=== PATIENT | female | born 1980 | race Caucasian/White ===

== ENCOUNTER → 2016-06-20 | Outpatient (CLI) | payer OTHER ==
[~2016-06-20] MED LIST: ACET50TA PO; CIPR500T19; MOTR200T44 PO; PERC5TAB8; STUATAB PO; [UNRECOGNIZED DRUG - OTHER]
[2016-06-20 10:45] LABS: BASO % 0.2 % (0.0-1.0); EOS # 0.4 K/mm3 (0.0-0.50); EOS % 3.4 % (0.0-3.0); LARGE UNSTAINED CELL # 0.2 K/mm3 (0.0-0.4); LARGE UNSTAINED CELL % 1.3 % (0.0-4.0); LYMPH # 3.3 K/mm3 (1.5-4.5); LYMPH % 27.7 % (24.0-44.0); MEAN CORPUSCULAR HEMOGLOBIN 31.9 pg (27.0-33.0); MEAN CORPUSCULAR HGB CONC 34.3 g/dl (32.0-36.5); MONO # 0.6 K/mm3 (0.0-0.8); MONO % 4.9 % (0.0-5.0); NEUTROPHILS # 7.1 K/mm3 (1.8-7.7); NEUTROPHILS % 62.5 % (36.0-66.0); PLATELET COUNT, AUTOMATED 254 k/mm3 (150-450); RED CELL DISTRIBUTION WIDTH 12.6 % (11.5-14.5); WHITE BLOOD COUNT 11.4 K/mm3 (4.0-10.0)
[2016-06-20 11:04] LABS: ERYTHROCYTE SEDIMENTATION RATE 27 mm/hr (0-20)
[2016-06-20 11:14] LABS: ALBUMIN 3.7 GM/DL (3.2-5.2); ALBUMIN/GLOBULIN RATIO 1.09 (1.00-1.93); ALKALINE PHOSPHATASE 118 U/L (45-117); ALT/SGPT 45 U/L (12-78); ANION GAP 7 MEQ/L (8-16); AST/SGOT 27 U/L (15-37); BILIRUBIN,TOTAL 0.4 MG/DL (0.2-1.0); BLOOD UREA NITROGEN 17 MG/DL (7-18); CARBON DIOXIDE LEVEL 28 MEQ/L (21-32); CHLORIDE LEVEL 101 MEQ/L (98-107); CREATININE FOR GFR 0.87 MG/DL (0.55-1.02); GLOMERULAR FILTRATION RATE > 60.0 (>60); GLUCOSE, FASTING 102 MG/DL (70-105); SODIUM LEVEL 136 MEQ/L (136-145); TOTAL PROTEIN 7.1 GM/DL (6.4-8.2)
== END ==
LOC: M LAB 10:12
PROVIDERS: ATTEND Psychiatry & Neurology Neurology
DX: R51 Headache (principal)

== ENCOUNTER → 2016-11-16 | Outpatient (RCR) | payer OTHER | LOC: M PT 11-13 07:37 | PROVIDERS: ATTEND Psychiatry & Neurology Neurology | DX: Z51.89 Encounter for other specified aftercare (principal); M54.2 Cervicalgia; M79.603 Pain in arm, unspecified; Z88.0 Allergy status to penicillin; Z88.2 Allergy status to sulfonamides ==

== ENCOUNTER 2016-12-13 07:45 | Outpatient (RCR) | payer OTHER | END 2016-12-16 | LOC: M PT 07:45 | PROVIDERS: ATTEND Psychiatry & Neurology Neurology | DX: Z51.89 Encounter for other specified aftercare (principal); M54.2 Cervicalgia; M79.621 Pain in right upper arm ==

== ENCOUNTER → 2016-12-23 | Outpatient (CLI) | payer OTHER ==
[2016-12-23 10:43] LABS: BASO % 0.2 % (0.0-1.0); EOS # 0.4 10^3/uL (0.0-0.50); EOS % 3.6 % (0.0-3.0); IMMATURE GRANULOCYTE % 0.6 % (0-0); LYMPH # 3.3 10^3/uL (1.5-4.5); MEAN CORPUSCULAR HEMOGLOBIN 31.7 pg (27.0-33.0); MEAN CORPUSCULAR HGB CONC 34.1 g/dl (32.0-36.5); MEAN CORPUSCULAR VOLUME 92.9 fl (80.0-96.0); MONO # 0.7 10^3/uL (0.0-0.8); MONO % 6.2 % (0.0-5.0); NEUTROPHILS # 6.6 10^3/uL (1.8-7.7); NEUTROPHILS % 59.4 % (36.0-66.0); PLATELET COUNT, AUTOMATED 316 10^3/uL (150-450); RED CELL DISTRIBUTION WIDTH 12.4 % (11.5-14.5); WHITE BLOOD COUNT 11.1 10^3/uL (4.0-10.0)
[2016-12-23 10:50] LABS: ADD MANUAL DIFFER NO; DIFF SLIDE NUMBER 119
[2016-12-23 11:15] LABS: ALBUMIN 3.6 GM/DL (3.2-5.2); ALKALINE PHOSPHATASE 105 U/L (45-117); ALT/SGPT 44 U/L (12-78); ANION GAP 9 MEQ/L (8-16); AST/SGOT 27 U/L (15-37); BILIRUBIN,TOTAL 0.4 MG/DL (0.2-1.0); BLOOD UREA NITROGEN 17 MG/DL (7-18); CALCIUM LEVEL 8.3 MG/DL (8.5-10.1); CARBON DIOXIDE LEVEL 24 MEQ/L (21-32); CHLORIDE LEVEL 107 MEQ/L (98-107); CHOLESTEROL LEVEL 182 MG/DL (<200); CREATININE FOR GFR 0.96 MG/DL (0.55-1.02); GLOMERULAR FILTRATION RATE > 60.0 (>60); GLUCOSE, FASTING 84 MG/DL (70-105); POTASSIUM SERUM 3.9 MEQ/L (3.5-5.1); SODIUM LEVEL 140 MEQ/L (136-145); TOTAL PROTEIN 7.2 GM/DL (6.4-8.2); TRIGLYCERIDES LEVEL 118 MG/DL (<150)
== END ==
LOC: M LAB 09:48
PROVIDERS: ATTEND Nurse Practitioner Adult Health
DX: D64.9 Anemia, unspecified (principal); E55.9 Vitamin D deficiency, unspecified; Z79.899 Other long term (current) drug therapy

== ENCOUNTER → 2017-05-07 | Outpatient (CLI) | payer OTHER ==
[2017-05-07 14:05] LABS: ANION GAP 9 MEQ/L (8-16); BLOOD UREA NITROGEN 14 MG/DL (7-18); CALCIUM LEVEL 8.8 MG/DL (8.5-10.1); CARBON DIOXIDE LEVEL 24 MEQ/L (21-32); CHLORIDE LEVEL 107 MEQ/L (98-107); CREATININE FOR GFR 0.94 MG/DL (0.55-1.30); GLOMERULAR FILTRATION RATE > 60.0 (>60); GLUCOSE, FASTING 68 MG/DL (70-100); POTASSIUM SERUM 3.7 MEQ/L (3.5-5.1); SODIUM LEVEL 140 MEQ/L (136-145)
== END ==
LOC: M LAB 12:04
DX: G56.01 Carpal tunnel syndrome, right upper limb (principal)
CPT/HCPCS: 93005

== ENCOUNTER 2017-07-11 13:55 | Inpatient (IN) | payer OTHER, MEDICAID ==
[2017-07-11] MEDS: LORazepam 2 MG/ML VIAL (J2060) IV (13:01)
[2017-07-11] MEDS: NS 1,000 ML IV ×2 (13:15→17:28)
[2017-07-11 13:23] LABS: ABG pH (ARTERIAL) 7.294 UNITS (7.350-7.450); HEMATOCRIT 40.6 % (36.0-47.0); HEMOGLOBIN 13.4 g/dl (12.0-15.5); MEAN CORPUSCULAR HEMOGLOBIN 32.1 pg (27.0-33.0); MEAN CORPUSCULAR VOLUME 97.1 fl (80.0-96.0); PLATELET COUNT, AUTOMATED 293 10^3/uL (150-450); RED BLOOD COUNT 4.18 10^6/uL (4.00-5.40); RED CELL DISTRIBUTION WIDTH 12.6 % (11.5-14.5)
[2017-07-11 13:24] LABS: ABG BASE EXCESS -8.5 (-2.0-2.0); ABG HCO3 17.1 MEQ/L (22.0-26.0); ABG O2 SATURATION 88.2 % (95.0-99.0); ABG PARTIAL PRESSURE CO2 36.1 mmHg (35.0-45.0); ABG PARTIAL PRESSURE O2 59.9 mmHg (75.0-100.0); ABG STANDARD HCO3 17.5 MEQ/L (22.0-26.0); ABG TOTAL CO2 18.2 MEQ/L (22.0-29.0)
[2017-07-11] MEDS: methylPREDNISolone INJ 125 MG/2 ML VIAL (J2930) IV (13:27)
[2017-07-11 13:34] LABS: ADD MANUAL DIFFER YES; DIFF SLIDE NUMBER 258; POS COUNT POS FLAG; POSITIVE DIFF POS FLAG; POSITIVE MORPH POS FLAG; WHITE BLOOD COUNT 38.3 10^3/uL (4.0-10.0)
[2017-07-11] MEDS: ALBUTEROL SULFATE 2.5 MG/0.5 ML INH NEB SOLN INH (13:34)
[2017-07-11] MEDS: IPRATROPIUM 0.5MG/ALBUTEROL 2.5MG INH SOL UD 3ML (DUONEB)(J7620) NEB ×2 (13:34→20:15)
[~2017-07-11 13:55] MED LIST changes: -ACET50TA PO; -CIPR500T19; +LORazepam 2 MG/ML VIAL (J2060) As Ordered; -MOTR200T44 PO; +NS 1,000 ML IV; -PERC5TAB8; -STUATAB PO; -[UNRECOGNIZED DRUG - OTHER]; +diphenhydrAMINE INJ 50MG/ML VIAL (J1200) IV
[2017-07-11 14:01] LABS: INR 1.03; PROTHROMBIN TIME 13.6 SECONDS (12.4-14.5)
[2017-07-11 14:02] LABS: PARTIAL THROMBOPLASTIN TIME 26.7 SECONDS (26.8-37.9)
[2017-07-11 14:03] LABS: LACTIC ACID SEPSIS PROTOCOL 4.3 MMOL/L (0.4-2.0)
[2017-07-11 14:09] LABS: ALBUMIN/GLOBULIN RATIO 0.83 (1.00-1.93); ALT/SGPT 53 U/L (12-78); AST/SGOT 57 U/L (7-37); BILIRUBIN,DIRECT < 0.1 MG/DL (0.0-0.2); BILIRUBIN,TOTAL 0.2 MG/DL (0.2-1.0); CPK CREATINE PHOSPHOKINASE 250 U/L (26-192); FREE T4 0.91 NG/DL (0.76-1.46); LIPASE 171 U/L (73-393); TOTAL PROTEIN 6.6 GM/DL (6.4-8.2); TROPONIN I 0.51 NG/ML (< 0.10)
[2017-07-11 14:11] LABS: ANISOCYTOSIS 1+; ATYPICAL LYMPH 2 % (0-5); LYMPHOCYTES 14 % (16-52); MONOCYTES 6 % (0-8); NEUTROPHILS 78 % (35-75); PLATELET ESTIMATE NORMAL (NORMAL)
[2017-07-11 14:14] LABS: ALKALINE PHOSPHATASE 98 U/L (45-117); CK-MB VALUE MASS 4.7 NG/ML (<3.6); MB/CK RELATIVE INDEX 1.88 (< OR =4); NT-PRO BNP 725 PG/ML (<125)
[2017-07-11] MEDS ORDERED: NOREPINEPHRINE 4 MG/4 ML AMP As Ordered ×2 (14:30→14:31)
[2017-07-11] MEDS: NOREPINEPHRINE BITARTRATE 8 MG in D5W 492 ML IV (14:44)
[2017-07-11] MEDS: ONDANSETRON 4MG/2ML VIAL (J2405) IV (15:13)
[2017-07-11 15:35] LABS: ANION GAP 12 MEQ/L (8-16); BLOOD UREA NITROGEN 12 MG/DL (7-18); CALCIUM LEVEL 7.9 MG/DL (8.5-10.1); CARBON DIOXIDE LEVEL 20 MEQ/L (21-32); CHLORIDE LEVEL 111 MEQ/L (98-107); CREATININE FOR GFR 1.18 MG/DL (0.55-1.30); GLOMERULAR FILTRATION RATE 54.3 (>60); GLUCOSE, FASTING 201 MG/DL (70-100); POTASSIUM SERUM 2.7 MEQ/L (3.5-5.1); SODIUM LEVEL 143 MEQ/L (136-145)
[2017-07-11] MEDS: PANTOPRAZOLE 40MG INJ (PROTONIX) (C9113) IV (15:43)
[2017-07-11] MEDS: KCL 40MEQ in NS 1000ML 1,000 ML IV (15:45)
[2017-07-11 16:22] LABS: ABG HCO3 17.2 MEQ/L (22.0-26.0); ABG O2 SATURATION 96.1 % (95.0-99.0); ABG PARTIAL PRESSURE CO2 38.2 mmHg (35.0-45.0); ABG PARTIAL PRESSURE O2 90.2 mmHg (75.0-100.0); ABG STANDARD HCO3 17.3 MEQ/L (22.0-26.0); ABG TOTAL CO2 18.4 MEQ/L (22.0-29.0); ABG pH (ARTERIAL) 7.271 UNITS (7.350-7.450)
[2017-07-11 16:28] LABS: CPK CREATINE PHOSPHOKINASE 436 U/L (26-192)
[2017-07-11 16:30] LABS: ALBUMIN 3.2 GM/DL (3.2-5.2); ALBUMIN/GLOBULIN RATIO 0.94 (1.00-1.93); ALKALINE PHOSPHATASE 103 U/L (45-117); ALT/SGPT 57 U/L (12-78); ANION GAP 12 MEQ/L (8-16); AST/SGOT 52 U/L (7-37); BILIRUBIN,TOTAL 0.2 MG/DL (0.2-1.0); BLOOD UREA NITROGEN 13 MG/DL (7-18); CALCIUM LEVEL 8.2 MG/DL (8.5-10.1); CARBON DIOXIDE LEVEL 20 MEQ/L (21-32); CHLORIDE LEVEL 111 MEQ/L (98-107); CHOLESTEROL LEVEL 175 MG/DL (< 200); CPK CREATINE PHOSPHOKINASE 453 U/L (26-192); CREATININE FOR GFR 1.29 MG/DL (0.55-1.30); GLUCOSE, FASTING 198 MG/DL (70-100); LDH LACTATE DEHYDROGENASE 243 U/L (84-246); MAGNESIUM LEVEL 2.1 MG/DL (1.8-2.4); PHOSPHORUS LEVEL 4.1 MG/DL (2.5-4.9); SODIUM LEVEL 143 MEQ/L (136-145); TOTAL PROTEIN 6.6 GM/DL (6.4-8.2); TRIGLYCERIDES LEVEL 122 MG/DL (<150)
[2017-07-11 16:36] LABS: POTASSIUM SERUM 3.3 MEQ/L (3.5-5.1)
[2017-07-11] MEDS: ACETAMINOPHEN TAB 650MG DOSE (2X325MG) PO (19:06)
[2017-07-12] LABS: BEDSIDE GLUCOSE 139 MG/DL (70-105)
[2017-07-12] MEDS: KCL 40MEQ in NS 1000ML 1,000 ML IV (00:41)
[2017-07-12] MEDS: NOREPINEPHRINE BITARTRATE 8 MG in D5W 492 ML IV (04:20)
[2017-07-12 05:37] LABS: HEMATOCRIT 36.7 % (36.0-47.0); HEMOGLOBIN 12.1 g/dl (12.0-15.5); MEAN CORPUSCULAR HEMOGLOBIN 31.7 pg (27.0-33.0); MEAN CORPUSCULAR VOLUME 96.1 fl (80.0-96.0); PLATELET COUNT, AUTOMATED 220 10^3/uL (150-450); RED BLOOD COUNT 3.82 10^6/uL (4.00-5.40)
[2017-07-12 05:54] LABS: ABG BASE EXCESS -5.9 (-2.0-2.0); ABG HCO3 17.9 MEQ/L (22.0-26.0); ABG O2 SATURATION 99.6 % (95.0-99.0); ABG PARTIAL PRESSURE CO2 30.4 mmHg (35.0-45.0); ABG PARTIAL PRESSURE O2 218.5 mmHg (75.0-100.0); ABG STANDARD HCO3 19.7 MEQ/L (22.0-26.0); ABG TOTAL CO2 18.8 MEQ/L (22.0-29.0); ABG pH (ARTERIAL) 7.388 UNITS (7.350-7.450)
[2017-07-12 06:10] LABS: ALBUMIN 2.7 GM/DL (3.2-5.2); ANION GAP 7 MEQ/L (8-16); BLOOD UREA NITROGEN 15 MG/DL (7-18); CALCIUM LEVEL 7.9 MG/DL (8.5-10.1); CARBON DIOXIDE LEVEL 22 MEQ/L (21-32); CHLORIDE LEVEL 114 MEQ/L (98-107); GLOMERULAR FILTRATION RATE > 60.0 (>60); GLUCOSE, FASTING 104 MG/DL (70-100); PHOSPHORUS LEVEL 3.2 MG/DL (2.5-4.9); POTASSIUM SERUM 4.5 MEQ/L (3.5-5.1); SODIUM LEVEL 143 MEQ/L (136-145)
[2017-07-12 06:13] LABS: POS COUNT POS FLAG
[2017-07-12 06:14] LABS: WHITE BLOOD COUNT 30.2 10^3/uL (4.0-10.0)
[2017-07-12] MEDS: ACETAMINOPHEN TAB 650MG DOSE (2X325MG) PO ×2 (07:43→16:08)
[2017-07-12] MEDS: PANTOPRAZOLE 40MG INJ (PROTONIX) (C9113) IV (07:43)
[2017-07-12] MEDS: MAALOX 30 ML SUSP *UDC PO (07:54)
[2017-07-12] MEDS: FUROSEMIDE 20 MG/2 ML VIAL (J1940) IV (07:55)
[2017-07-12] MEDS: IPRATROPIUM 0.5MG/ALBUTEROL 2.5MG INH SOL UD 3ML (DUONEB)(J7620) NEB ×4 (08:27→19:28)
[2017-07-12 09:11] LABS: LACTIC ACID SEPSIS PROTOCOL 1.5 MMOL/L (0.4-2.0)
[2017-07-12 09:16] LABS: CPK CREATINE PHOSPHOKINASE 578 U/L (26-192)
[2017-07-12] MEDS: TOPIRAMATE (TopAMAX) 100 MG TAB PO ×2 (11:21→21:02)
[2017-07-12] MEDS: VENLAFAXINE **XR** 75MG CAPSULE PO ×2 (11:21→21:02)
[2017-07-12] MEDS: GABAPENTIN 100 MG CAP PO ×3 (11:21→21:02)
[2017-07-12 17:51] LABS: BEDSIDE GLUCOSE 105 MG/DL (70-105)
[2017-07-13 00:33] LABS: BEDSIDE GLUCOSE 115 MG/DL (70-105)
[2017-07-13 05:56] LABS: HEMATOCRIT 35.9 % (36.0-47.0); HEMOGLOBIN 11.9 g/dl (12.0-15.5); MEAN CORPUSCULAR HEMOGLOBIN 31.6 pg (27.0-33.0); MEAN CORPUSCULAR HGB CONC 33.1 g/dl (32.0-36.5); MEAN CORPUSCULAR VOLUME 95.2 fl (80.0-96.0); PLATELET COUNT, AUTOMATED 212 10^3/uL (150-450); RED BLOOD COUNT 3.77 10^6/uL (4.00-5.40); WHITE BLOOD COUNT 17.7 10^3/uL (4.0-10.0)
[2017-07-13 06:16] LABS: ALBUMIN 2.8 GM/DL (3.2-5.2); ANION GAP 6 MEQ/L (8-16); BLOOD UREA NITROGEN 15 MG/DL (7-18); CALCIUM LEVEL 8.1 MG/DL (8.5-10.1); CARBON DIOXIDE LEVEL 25 MEQ/L (21-32); CHLORIDE LEVEL 112 MEQ/L (98-107); CREATININE FOR GFR 0.85 MG/DL (0.55-1.30); GLOMERULAR FILTRATION RATE > 60.0 (>60); GLUCOSE, FASTING 86 MG/DL (70-100); SODIUM LEVEL 143 MEQ/L (136-145)
[2017-07-13 06:29] LABS: PHOSPHORUS LEVEL 1.6 MG/DL (2.5-4.9)
[2017-07-13] MEDS: VENLAFAXINE **XR** 75MG CAPSULE PO ×2 (08:27→21:15)
[2017-07-13] MEDS: TOPIRAMATE (TopAMAX) 100 MG TAB PO ×2 (08:27→21:15)
[2017-07-13] MEDS: PANTOPRAZOLE 40MG INJ (PROTONIX) (C9113) IV (08:27)
[2017-07-13] MEDS: GABAPENTIN 100 MG CAP PO ×3 (08:27→21:15)
[2017-07-13] MEDS: IPRATROPIUM 0.5MG/ALBUTEROL 2.5MG INH SOL UD 3ML (DUONEB)(J7620) NEB (08:30)
[2017-07-13] MEDS: ACETAMINOPHEN TAB 650MG DOSE (2X325MG) PO (21:16)
[2017-07-14 06:02] LABS: HEMATOCRIT 35.2 % (36.0-47.0); HEMOGLOBIN 11.5 g/dl (12.0-15.5); MEAN CORPUSCULAR HEMOGLOBIN 31.3 pg (27.0-33.0); MEAN CORPUSCULAR HGB CONC 32.7 g/dl (32.0-36.5); MEAN CORPUSCULAR VOLUME 95.7 fl (80.0-96.0); PLATELET COUNT, AUTOMATED 195 10^3/uL (150-450); RED BLOOD COUNT 3.68 10^6/uL (4.00-5.40); RED CELL DISTRIBUTION WIDTH 12.8 % (11.5-14.5); WHITE BLOOD COUNT 12.7 10^3/uL (4.0-10.0)
[2017-07-14 06:30] LABS: ALBUMIN 2.7 GM/DL (3.2-5.2); ANION GAP 8 MEQ/L (8-16); BLOOD UREA NITROGEN 15 MG/DL (7-18); CALCIUM LEVEL 8.4 MG/DL (8.5-10.1); CARBON DIOXIDE LEVEL 21 MEQ/L (21-32); CHLORIDE LEVEL 115 MEQ/L (98-107); CREATININE FOR GFR 0.79 MG/DL (0.55-1.30); GLOMERULAR FILTRATION RATE > 60.0 (>60); GLUCOSE, FASTING 98 MG/DL (70-100); MAGNESIUM LEVEL 2.2 MG/DL (1.8-2.4); PHOSPHORUS LEVEL 3.3 MG/DL (2.5-4.9); POTASSIUM SERUM 3.9 MEQ/L (3.5-5.1); SODIUM LEVEL 144 MEQ/L (136-145)
[2017-07-14] MEDS: VENLAFAXINE **XR** 75MG CAPSULE PO (08:54)
[2017-07-14] MEDS: GABAPENTIN 100 MG CAP PO (08:54)
[2017-07-14] MEDS: TOPIRAMATE (TopAMAX) 100 MG TAB PO (08:54)
== END 2017-07-14 10:21 | disposition home or self-care (01) | DRG 812 ==
LOC: M MSPAV 07-13 13:19 → M ED 13:55 → M ED INP 14:07 → M ICU 16:51
PROVIDERS: Internal Medicine Pulmonary Disease
PROC: 02HV33Z Insertion of Infusion Device into Superior Vena Cava, Percutaneous Approach (ICD-10-PCS; principal; 2017-07-11)
DX: T44.5X1A Poisoning by predominantly beta-adrenoreceptor agonists, accidental (unintentional), initial encounter (principal); E87.2 Acidosis; J70.8 Respiratory conditions due to other specified external agents; I95.9 Hypotension, unspecified; J96.01 Acute respiratory failure with hypoxia; R73.9 Hyperglycemia, unspecified; R57.8 Other shock; E66.9 Obesity, unspecified; I10 Essential (primary) hypertension; Z88.0 Allergy status to penicillin; Z88.2 Allergy status to sulfonamides; Z79.899 Other long term (current) drug therapy

== ENCOUNTER → 2017-10-19 | Outpatient (CLI) | payer OTHER ==
[2017-10-19 16:55] LABS: ERYTHROCYTE SEDIMENTATION RATE 37 mm/hr (0-20)
[2017-10-19 17:20] LABS: RHEUMATOID FACTOR QUANT < 10.0 IU/ML (<15.0); TOTAL PROTEIN 7.6 GM/DL (6.4-8.2)
[2017-10-19 17:39] LABS: VITAMIN B12 LEVEL 341 PG/ML (247-911)
[2017-10-22 11:13] LABS: FOLATE 20.2 NG/ML (>5.4)
[2017-10-22 14:12] LABS: ANTINUCLEAR ANTIBODIES DIRECT Negative (Negative)
[2017-10-23 00:06] LABS: VITAMIN E(ALPHA TOCOPHEROL) 11.2 mg/L (5.9-19.4); VITAMIN E(GAMMA TOCOPHEROL) 2.7 mg/L (0.7-4.9)
== END ==
LOC: M LAB 15:37
DX: R51 Headache (principal); R41.3 Other amnesia
CPT/HCPCS: 82746

== ENCOUNTER → 2017-11-05 | Outpatient (CLI) | payer OTHER ==
[2017-11-05 10:05] LABS: BASO % 0.1 % (0.0-1.0); EOS # 0.5 10^3/uL (0.0-0.50); EOS % 3.3 % (0.0-3.0); HEMATOCRIT 37.6 % (36.0-47.0); IMMATURE GRANULOCYTE % 1.1 % (0-3.0); LYMPH # 3.9 10^3/uL (1.5-4.5); LYMPH % 26.9 % (24.0-44.0); MEAN CORPUSCULAR HEMOGLOBIN 31.8 pg (27.0-33.0); MEAN CORPUSCULAR HGB CONC 34.6 g/dl (32.0-36.5); MEAN CORPUSCULAR VOLUME 91.9 fl (80.0-96.0); MONO # 1.1 10^3/uL (0.0-0.8); MONO % 7.4 % (0.0-5.0); NEUTROPHILS # 8.8 10^3/uL (1.8-7.7); NEUTROPHILS % 61.2 % (36.0-66.0); PLATELET COUNT, AUTOMATED 303 10^3/uL (150-450); RED BLOOD COUNT 4.09 10^6/uL (4.00-5.40); RED CELL DISTRIBUTION WIDTH 12.6 % (11.5-14.5); WHITE BLOOD COUNT 14.4 10^3/uL (4.0-10.0)
[2017-11-05 10:16] LABS: INR 0.99; PROTHROMBIN TIME 13.2 SECONDS (12.1-14.4)
[2017-11-05 10:40] LABS: ALBUMIN 3.4 GM/DL (3.2-5.2); ALBUMIN/GLOBULIN RATIO 0.85 (1.00-1.93); ALKALINE PHOSPHATASE 102 U/L (45-117); ALT/SGPT 47 U/L (12-78); ANION GAP 10 MEQ/L (8-16); AST/SGOT 28 U/L (7-37); BILIRUBIN,TOTAL 0.2 MG/DL (0.2-1.0); BLOOD UREA NITROGEN 20 MG/DL (7-18); CALCIUM LEVEL 8.5 MG/DL (8.5-10.1); CARBON DIOXIDE LEVEL 24 MEQ/L (21-32); CHLORIDE LEVEL 107 MEQ/L (98-107); CHOLESTEROL LEVEL 156 MG/DL (<200); CHOLESTEROL RISK RATIO 3.183 (<5); CREATININE FOR GFR 1.12 MG/DL (0.55-1.30); GLOMERULAR FILTRATION RATE 57.7 (>60); GLUCOSE, FASTING 107 MG/DL (70-100); HDL CHOLESTEROL 49 MG/DL (>40); LDL CHOLESTEROL 76.2 MG/DL (<100); NON-HDL-C 107 MG/DL; POTASSIUM SERUM 3.8 MEQ/L (3.5-5.1); SODIUM LEVEL 141 MEQ/L (136-145); TOTAL PROTEIN 7.4 GM/DL (6.4-8.2); TRIGLYCERIDES LEVEL 154 MG/DL (<150)
[2017-11-05 10:55] LABS: TOTAL 25(OH) VITAMIN D 22.9 NG/ML (30.0-100.0)
== END ==
LOC: M LAB 09:35
DX: I10 Essential (primary) hypertension (principal)
CPT/HCPCS: 93005

== ENCOUNTER 2017-12-19 19:13 | Emergency (ER) | payer OTHER, MEDICAID ==
[2017-12-19 19:40] LABS: HEMATOCRIT 41.1 % (36.0-47.0); MEAN CORPUSCULAR HEMOGLOBIN 32.1 pg (27.0-33.0); MEAN CORPUSCULAR HGB CONC 34.1 g/dl (32.0-36.5); MEAN CORPUSCULAR VOLUME 94.3 fl (80.0-96.0); PLATELET COUNT, AUTOMATED 317 10^3/uL (150-450); RED BLOOD COUNT 4.36 10^6/uL (4.00-5.40); RED CELL DISTRIBUTION WIDTH 12.6 % (11.5-14.5)
[2017-12-19 19:45] LABS: POSITIVE DIFF POS FLAG; WHITE BLOOD COUNT 16.1 10^3/uL (4.0-10.0)
[2017-12-19 19:46] LABS: ADD MANUAL DIFFER YES; DIFF SLIDE NUMBER 382
[2017-12-19 20:07] LABS: ALBUMIN 3.7 GM/DL (3.2-5.2); ALBUMIN/GLOBULIN RATIO 0.95 (1.00-1.93); ALKALINE PHOSPHATASE 97 U/L (45-117); ALT/SGPT 53 U/L (12-78); ANION GAP 11 MEQ/L (8-16); AST/SGOT 30 U/L (7-37); BILIRUBIN,DIRECT < 0.1 MG/DL (0.0-0.2); BILIRUBIN,TOTAL 0.2 MG/DL (0.2-1.0); BLOOD UREA NITROGEN 16 MG/DL (7-18); CARBON DIOXIDE LEVEL 23 MEQ/L (21-32); CHLORIDE LEVEL 107 MEQ/L (98-107); CPK CREATINE PHOSPHOKINASE 201 U/L (26-192); CREATININE FOR GFR 1.03 MG/DL (0.55-1.30); GLOMERULAR FILTRATION RATE > 60.0 (>60); GLUCOSE, FASTING 116 MG/DL (70-100); LIPASE 187 U/L (73-393); MB/CK RELATIVE INDEX 1.34 (< OR =4); POTASSIUM SERUM 3.7 MEQ/L (3.5-5.1); SODIUM LEVEL 141 MEQ/L (136-145); TOTAL PROTEIN 7.6 GM/DL (6.4-8.2); TROPONIN I < 0.02 NG/ML (< 0.10)
[2017-12-19 20:12] LABS: INR 0.92; PARTIAL THROMBOPLASTIN TIME 27.8 SECONDS (25.4-37.6); PROTHROMBIN TIME 12.4 SECONDS (12.1-14.4)
[2017-12-19 20:15] LABS: ATYPICAL LYMPH 8 % (0-5); EOSINOPHILS 4 % (0-5); LYMPHOCYTES 25 % (16-52); MONOCYTES 5 % (0-8); NEUTROPHILS 58 % (35-75); PLATELET ESTIMATE NORMAL (NORMAL)
[2017-12-19] MEDS ORDERED: ISOVUE-370 76% 100ML VIAL (Q9967) As Ordered (20:55)
[2017-12-20 02:17] LABS: CPK CREATINE PHOSPHOKINASE 164 U/L (26-192); MB/CK RELATIVE INDEX 1.34 (< OR =4); TROPONIN I < 0.02 NG/ML (< 0.10)
== END 2017-12-20 02:51 | disposition home or self-care (01) ==
LOC: M ED 12-20 02:51
DX: R07.9 Chest pain, unspecified (principal); I10 Essential (primary) hypertension; J45.909 Unspecified asthma, uncomplicated; F33.9 Major depressive disorder, recurrent, unspecified; M51.9 Unspecified thoracic, thoracolumbar and lumbosacral intervertebral disc disorder; E66.9 Obesity, unspecified; Z79.899 Other long term (current) drug therapy; Z88.0 Allergy status to penicillin; F17.210 Nicotine dependence, cigarettes, uncomplicated
CPT/HCPCS: Q9967

== ENCOUNTER 2017-12-21 21:14 | Inpatient (IN) | payer MEDICAID, OTHER ==
[2017-12-21 22:01] LABS: HEMATOCRIT 35.8 % (36.0-47.0); HEMOGLOBIN 12.1 g/dl (12.0-15.5); MEAN CORPUSCULAR HEMOGLOBIN 31.8 pg (27.0-33.0); MEAN CORPUSCULAR HGB CONC 33.8 g/dl (32.0-36.5); PLATELET COUNT, AUTOMATED 270 10^3/uL (150-450); RED BLOOD COUNT 3.81 10^6/uL (4.00-5.40); RED CELL DISTRIBUTION WIDTH 12.5 % (11.5-14.5); WHITE BLOOD COUNT 13.3 10^3/uL (4.0-10.0)
[2017-12-21 22:19] LABS: AMPHETAMINES LEVEL URINE NEGATIVE (NEGATIVE); BARBITURATES URINE NEGATIVE (NEGATIVE); BENZODIAZEPINES URINE NEGATIVE (NEGATIVE); CANNABINOIDS URINE NEGATIVE (NEGATIVE); COCAINE METABOLITE URINE NEGATIVE (NEGATIVE); METHADONE URINE NEGATIVE (NEGATIVE); OPIATES URINE NEGATIVE (NEGATIVE); PHENCYCLIDINE URINE NEGATIVE (NEGATIVE)
[2017-12-21 22:51] LABS: ACETAMINOPHEN LEVEL < 2.0 UG/ML (10.0-30.0); ALBUMIN 3.3 GM/DL (3.2-5.2); ALBUMIN/GLOBULIN RATIO 1.03 (1.00-1.93); ALKALINE PHOSPHATASE 83 U/L (45-117); ALT/SGPT 43 U/L (12-78); ANION GAP 8 MEQ/L (8-16); AST/SGOT 22 U/L (7-37); BILIRUBIN,DIRECT < 0.1 MG/DL (0.0-0.2); BILIRUBIN,TOTAL 0.1 MG/DL (0.2-1.0); BLOOD UREA NITROGEN 20 MG/DL (7-18); CALCIUM LEVEL 8.2 MG/DL (8.5-10.1); CARBON DIOXIDE LEVEL 24 MEQ/L (21-32); CHLORIDE LEVEL 113 MEQ/L (98-107); CREATININE FOR GFR 0.93 MG/DL (0.55-1.30); ETHYL ALCOHOL (ETHANOL) < 0.003 % (0.000-0.010); GLOMERULAR FILTRATION RATE > 60.0 (>60); GLUCOSE, FASTING 138 MG/DL (70-100); POTASSIUM SERUM 3.6 MEQ/L (3.5-5.1); SALICYLATE LEVEL 1.9 MG/DL (5.0-30.0); SODIUM LEVEL 145 MEQ/L (136-145); TOTAL PROTEIN 6.5 GM/DL (6.4-8.2)
[2017-12-22] MEDS ORDERED: ALBUTEROL 90 MCG/ACT 8GM HFA INHALER INH (01:30)
[2017-12-22] MEDS ORDERED: MOM 30ML SUSPENSION UDC PO (01:30)
[2017-12-22] MEDS ORDERED: MAALOX 30 ML SUSP *UDC PO (01:30)
[2017-12-22] MEDS ORDERED: ACETAMINOPHEN TAB 650MG DOSE (2X325MG) PO (01:30)
[2017-12-22] MEDS: LISINOPRIL 20 MG TAB PO ×2 (09:00→20:54)
[2017-12-22] MEDS: hydroCHLOROthiazide 12.5 MG CAPSULE PO ×2 (09:00→20:54)
[2017-12-22] MEDS: VENLAFAXINE **XR** 75MG CAPSULE PO (09:00)
[2017-12-22] MEDS: TOPIRAMATE (TopAMAX) 100 MG TAB PO (09:00)
[2017-12-22] MEDS: VITAMIN D 1,000 INTERNATIONAL UNITS TABLET PO (09:00)
[2017-12-22] MEDS: BACLOFEN 10 MG TAB PO ×2 (09:09→20:55)
[2017-12-22] MEDS: GABAPENTIN 400 MG CAP PO ×2 (16:11→20:54)
[2017-12-22] MEDS: FLUoxetine 10 MG CAP PO (17:47)
[2017-12-22] MEDS: MIRTAZAPINE 15 MG TAB PO (20:54)
[2017-12-22] MEDS: traZODone 50 MG TAB PO (20:54)
[2017-12-22] MEDS ORDERED: VENLAFAXINE **XR** 75MG CAPSULE PO (21:00)
[2017-12-23] MEDS: INFLUENZA QUADRIVALENT PF VACCINE 0.5ML SYRINGE (90686) IM (08:42)
[2017-12-23] MEDS: TOPIRAMATE (TopAMAX) 100 MG TAB PO (08:45)
[2017-12-23] MEDS: BACLOFEN 10 MG TAB PO ×2 (08:45→20:54)
[2017-12-23] MEDS: FLUoxetine 10 MG CAP PO (08:45)
[2017-12-23] MEDS: VITAMIN D 1,000 INTERNATIONAL UNITS TABLET PO (08:45)
[2017-12-23] MEDS: GABAPENTIN 400 MG CAP PO ×3 (08:45→20:54)
[2017-12-23] MEDS: traZODone 50 MG TAB PO (20:54)
[2017-12-23] MEDS: hydroCHLOROthiazide 12.5 MG CAPSULE PO (20:54)
[2017-12-23] MEDS: MIRTAZAPINE 15 MG TAB PO (20:54)
[2017-12-23] MEDS: LISINOPRIL 20 MG TAB PO (20:56)
[2017-12-24 07:46] LABS: BASO % 0.2 % (0.0-1.0); EOS # 0.6 10^3/uL (0.0-0.50); HEMATOCRIT 39.3 % (36.0-47.0); HEMOGLOBIN 13.3 g/dl (12.0-15.5); LYMPH # 3.7 10^3/uL (1.5-4.5); MEAN CORPUSCULAR HGB CONC 33.8 g/dl (32.0-36.5); MEAN CORPUSCULAR VOLUME 94.5 fl (80.0-96.0); MONO # 0.8 10^3/uL (0.0-0.8); MONO % 6.4 % (0.0-5.0); NEUTROPHILS % 57.4 % (36.0-66.0); PLATELET COUNT, AUTOMATED 279 10^3/uL (150-450); RED BLOOD COUNT 4.16 10^6/uL (4.00-5.40); RED CELL DISTRIBUTION WIDTH 12.7 % (11.5-14.5); WHITE BLOOD COUNT 12.3 10^3/uL (4.0-10.0)
[2017-12-24 08:15] LABS: FREE THYROXINE INDEX 1.9 % (1.3-4.8); T UPTAKE 31 % (30-39); THYROXINE (T4) 6.1 UG/DL (4.5-12.0)
[2017-12-24] MEDS: TOPIRAMATE (TopAMAX) 100 MG TAB PO (08:54)
[2017-12-24] MEDS: VITAMIN D 1,000 INTERNATIONAL UNITS TABLET PO (08:55)
[2017-12-24] MEDS: BACLOFEN 10 MG TAB PO (08:56)
[2017-12-24] MEDS: FLUoxetine 20 MG CAP PO (08:56)
[2017-12-24] MEDS: GABAPENTIN 400 MG CAP PO (08:56)
[2017-12-24] MEDS ORDERED: TOPIRAMATE (TopAMAX) 100 MG TAB PO (21:00)
== END 2017-12-24 14:05 | disposition home or self-care (01) | DRG 751 ==
LOC: M ED INP 12-22 01:22 → M PSY 12-22 02:31 → M ED 21:14
DX: F33.9 Major depressive disorder, recurrent, unspecified (principal); I10 Essential (primary) hypertension; F41.1 Generalized anxiety disorder; F43.10 Post-traumatic stress disorder, unspecified; Z79.899 Other long term (current) drug therapy; Z88.0 Allergy status to penicillin; Z88.2 Allergy status to sulfonamides; F17.210 Nicotine dependence, cigarettes, uncomplicated; J45.909 Unspecified asthma, uncomplicated; G43.909 Migraine, unspecified, not intractable, without status migrainosus; Z90.49 Acquired absence of other specified parts of digestive tract; R94.6 Abnormal results of thyroid function studies; D72.829 Elevated white blood cell count, unspecified

== ENCOUNTER → 2017-12-21 | Outpatient (REF) | LOC: M SMT 08:32 | DX: Z00.00 Encounter for general adult medical examination without abnormal findings (principal) ==

== ENCOUNTER → 2018-01-08 | Outpatient (CLI) | payer OTHER | LOC: M CARPUL 09:02 | DX: R60.9 Edema, unspecified (principal) | CPT/HCPCS: 93306 ==

== ENCOUNTER → 2018-01-25 | Outpatient (CLI) | payer OTHER | LOC: M WUC 12:21 | DX: M25.721 Osteophyte, right elbow (principal); M25.521 Pain in right elbow | CPT/HCPCS: 73080 ==

== ENCOUNTER → 2018-02-06 | Outpatient (CLI) | payer OTHER | LOC: M PAIN 08:30 | DX: M54.5 Low back pain (principal); M54.2 Cervicalgia; G56.01 Carpal tunnel syndrome, right upper limb; M79.601 Pain in right arm; M19.90 Unspecified osteoarthritis, unspecified site; I10 Essential (primary) hypertension; J45.909 Unspecified asthma, uncomplicated; F43.10 Post-traumatic stress disorder, unspecified; F17.210 Nicotine dependence, cigarettes, uncomplicated; R06.83 Snoring; E66.01 Morbid (severe) obesity due to excess calories; Z68.41 Body mass index [BMI] 40.0-44.9, adult; Z79.899 Other long term (current) drug therapy; Z88.1 Allergy status to other antibiotic agents; Z88.2 Allergy status to sulfonamides | CPT/HCPCS: G0463 ==

== ENCOUNTER 2018-02-11 09:35 | Outpatient (RCR) | payer OTHER | END 2018-02-15 | LOC: M PT 09:35 | DX: M54.2 Cervicalgia (principal); M54.5 Low back pain | CPT/HCPCS: 97010 ==

== ENCOUNTER 2018-03-06 09:59 | Outpatient (RCR) | payer OTHER ==
[~2018-03-06 09:59] MED LIST changes: +BACL10TA8 PO; +BACL1TAB9 PO; +CIPR500T19; +FLUO20CA19 PO; +GABA-843 PO; +GABA-845 PO; +HYDR-3713 PO; +LISI20TA PO; -LORazepam 2 MG/ML VIAL (J2060) As Ordered; +MAPA500T17 PO; +MIRT45TA4 PO; +MOTR200T44 PO; -NS 1,000 ML IV; +PERC5TAB8; +STUATAB PO; +TOPI200T7 PO; +TRAZO50TA PO; +VENL150C43 PO; +VENTAER INH; +VITA-112 PO; +[UNRECOGNIZED DRUG - OTHER]; -diphenhydrAMINE INJ 50MG/ML VIAL (J1200) IV
== END 2018-03-18 ==
LOC: M PT 09:59
PROVIDERS: ATTEND Anesthesiology
DX: M54.2 Cervicalgia (principal); R42 Dizziness and giddiness

== ENCOUNTER → 2018-03-07 | Outpatient (CLI) | payer OTHER ==
[~2018-03-07] MED LIST changes: +BUPIVACAINE HCL 0.25% 10 ML VIAL As Ordered ONE; +BUPIVACAINE HCL 0.25% 30 ML VIAL As Ordered ONE; -MAPA500T17 PO; +MAPA500T2 PO; +TRIAMCINOLONE ACETONIDE SUSP 40 MG/ML VIAL (J3301) As Ordered ONE; +diazePAM 5 MG TAB As Ordered ONE; +oxyCODONE 5MG TAB As Ordered ONE
--- NOTE | 2018-03-25 | ECWPNPC ---
PATIENT NAME: JUANITA GUARDADO : 1980 GENDER: FEMALE VISIT DATE: 03/07/2018 DISCHARGE DATE: 03/07/18 1103 VISIT LOCKED DATE TIME: PHYSICIAN: LEW MAYORGA MD RESOURCE: LEW MAYORGA MD REASON FOR APPOINTMENT 1. TPI HISTORY OF PRESENT ILLNESS HISTORY OF PRESENT ILLNESS: PAIN THE PATIENT DESCRIBES THE PAIN... FALL RISK SCREENING: SCREENING :NO FALLS IN THE PAST YEAR CURRENT MEDICATIONS TAKING IBUPROFEN 800 MG TABLET 1 TABLET WITH FOOD OR MILK NEEDED ORALLY THREE TIMES A DAY MDD3, NOTES: 03/07 600 TAKING TRAZODONE HCL 100 MG TABLET 1 TABLET AT BEDTIME ORALLY ONCE A DAY, NOTES: 03/06 2100 TAKING TOPAMAX 200 MG TABLET 1 TABLET ORALLY DAILY, NOTES: 03/06 2100 TAKING GABAPENTIN 600 MG TABLET 1 TABLET ORALLY THREE TIMES DAILY, NOTES: 03/07 600 TAKING DULOXETINE HCL 30 MG CAPSULE DELAYED RELEASE PARTICLES 1 CAPSULE ORALLY BID, NOTES: 03/07 600 TAKING TIZANIDINE HCL 4 MG TABLET 1 TABLET NEEDED ORALLY BID, NOTES: 03/07 600 TAKING LISINOPRIL-HYDROCHLOROTHIAZIDE 20-12.5 MG TABLET 2 TABLETS ORALLY ONCE A DAY, NOTES: 03/07 600 TAKING MIRENA IUD , NOTES: 2015 NOT-TAKING VOLTAREN 1 % GEL 1 STRIP TRANSDERMAL 3 TIMES DAILY NEEDED FOR PAIN, NOTES: INSURANCE WOULDN'T COVER NOT-TAKING VITAMIN D-3 1000 UNIT CAPSULE 2 CAPSULE ORALLY ONCE A DAY, NOTES: RAN OUT DISCONTINUED FLUOXETINE HCL 20 MG CAPSULE 1 CAPSULE ORALLY ONCE A DAY DISCONTINUED BACLOFEN 10 MG TABLET 1 TABLET WITH FOOD OR MILK ORALLY THREE TIMES A DAY MEDICATION LIST REVIEWED AND RECONCILED WITH THE PATIENT PAST MEDICAL HISTORY SYNCOPE HTN ASTHSMA WHOLE BODY ARTHRITIS PTSD NECK AND BACK PAIN CARPAL TUNNEL RIGHT CHRONIC PAIN DEPRESSION AND ANXIETY MIGRAINES ALLERGIES AMOXICILLIN: RASH: ALLERGY SULFA (FOR ALLERGY USE ONLY): RASH: ALLERGY SURGICAL HISTORY GALL BLADDER REMOVAL 03/2008 BICEP REPAIR LEFT 02/28 CARPAL TUNNEL RIGHT WRIST 10/2017 FAMILY HISTORY FATHER: ALIVE 56 YRS, DIAGNOSED WITH HYPERTENSION MOTHER: ALIVE 57 YRS, DIAGNOSED WITH OTHER 1 BROTHER(S) , 2 SISTER(S) - HEALTHY. 1 SON(S) , 1 DAUGHTER(S) . MOM-DEPRESSION, BACK PROBLEMSDAUGHTER HAS CELIAC AND , ENVIRONMENTAL [id number]/21/18ON HAS ASTHMA, ENVIRONMENTAL ALLERGIES 02/06/18. SOCIAL HISTORY GENERAL: TOBACCO USE ARE YOU A:CURRENT SMOKER ARE YOU INTERESTED IN QUITTING?THINKING ABOUT QUITTING HAS CUT DOWN AND CAN GO WEEKS WITHOUT A CIGARETTE PREVIOUS QUIT ATTEMPTS?YES, MORE THAN 6 MONTHS AGO. COUNSELED THE PATIENT ON SMOKING CESSATION, EDUCATION [id number]/20/2018 HOW MANY CIGARETTES A DAY DO YOU SMOKE?5 OR LESS HOW SOON AFTER YOU WAKE UP DO YOU SMOKE YOUR FIRST CIGARETTE?AFTER 60 MIN HOW OFTEN DO YOU SMOKE CIGARETTES?SOME DAYS, BUT NOT EVERY DAY PATIENT COUNSELED ON THE DANGERS OF TOBACCO USE AND URGED TO QUIT:03/07/2018 ALCOHOL SCREENING DID YOU HAVE A DRINK CONTAINING ALCOHOL IN THE PAST YEAR?YES HOW OFTEN DID YOU HAVE A DRINK CONTAINING ALCOHOL IN THE PAST YEAR?MONTHLY OR LESS (1 POINT) HOW MANY DRINKS DID YOU HAVE ON A TYPICAL DAY WHEN YOU WERE DRINKING IN THE PAST YEAR?1 OR 2 (0 POINTS) HOW OFTEN DID YOU HAVE SIX OR MORE DRINKS ON ONE OCCASION IN THE PAST YEAR?NEVER (0 POINTS) POINTS1 INTERPRETATIONNEGATIVE RECREATIONAL DRUG USE DRUG USE?NO CAFFEINE CAFFEINE USE?YES OCCASIONALLY MORMON [id number] NONE LANGUAGE LANGUAGES SPOKEN:ARMENIAN EDUCATION LEVEL OF EDUCATION:NOT FINISHED COLLEGE LEARNING BARRIERS / SPECIAL NEEDS BARRIERS TO LEARNING?NO HEARING IMPAIRED?NO VISION IMPAIRED?YES :CORRECTIVE LENSES COGNITIVELY IMPAIRED?NO READINESS TO LEARN?YES LEARNING PREFERENCES?YES :DEMONSTRATION/VERBAL INSTRUCTION LEARNING CAPABILITIES PRESENT?YES EMOTIONAL BARRIERS?YES COMMENTS DEPRESSION AND ANXIETY SPECIAL DEVICES?NO CREDIT ADJUSTER NEEDED?NO DOMESTIC VIOLENCE DO YOU FEEL SAFE IN YOUR ENVIRONMENT?YES DIET: UNEMPLOYED. EXERCISE: NONE. MARITAL STATUS: .. OTHERS AT HOME: OTHER NON-RELATIVE, CHILDREN. NEW PATIENT PAIN DIARY FROM 0-10, WHAT LEVEL IS YOUR PAIN TODAY?9 PAIN CLINIC PFS, CLERGY, PUBLIC HEALTH REFERRALS PFS REFERRAL NEEDED?NO CLERGY REFERRAL NEEDED?NO PUBLIC HEALTH REFERRAL NEEDED?NO WAS THE PROVIDER NOTIFIED OF ANY PERTINENT INFO? N/A HAS THE PATIENT BEEN EDUCATED REGARDING HIS/HER PLAN OF CARE?YES HAS THE PATIENT BEEN EDUCATED REGARDING PAIN, THE RISK FOR PAIN, THE IMPORTANCE OF EFFECTIVE PAIN MANAGEMENT, AND THE PAIN ASSESSMENT PROCESS?YES HOUSING: RENTS APARTMENT. ADVANCE DIRECTIVE ADVANCE DIRECTIVE DISCUSSED WITH PATIENT:YES 03/07/18 PT DOES NOT HAVE ANY ADVANCED DIRECTIVES AND SHE ALREADY HAS INFORMATION ON HCP. HELP OFFERED IN COMPLETING FORM IF NEEDED. AD 03/07/18 REVIEWED WITH PT. AD. HOSPITALIZATION/MAJOR DIAGNOSTIC PROCEDURE SURGERY RELATED CHILDBIRTH 2001,2015 COMPLICATIONS WHEN HERE TO HAVE CARPAL TUNNEL--DID NOT HAVE SURGERY 07/11/2017 REVIEW OF SYSTEMS REVIEWED BY: PROVIDER: . CONSTITUTIONAL: ANY CHANGE IN YOUR MEDICAL CONDITION? NO . CHILLS NO . FEVER NO . INFECTION: DO YOU HAVE NEW INFECTIONS? NO . DO YOU HAVE HISTORY OF MRSA? NO . MUSCULOSKELETAL: ANY NEW PATTERNS OF PAIN OR NUMBNESS? NO . GASTROENTEROLOGY: ANY NEW CHANGE IN BOWEL CONTROL? NO . GENITOURINARY: ANY NEW CHANGE IN BLADDER CONTROL? NO . IS THERE A CHANCE YOU COULD BE ? NO . HEMATOLOGY/LYMPH: DO YOU TAKE ANY BLOOD THINNERS? (FOR EXAMPLE- COUMADIN, PLAVIX, AGGRENOX, PLATEL, PRADAXA, OR XARELTO) NO . WHEN WAS YOUR LAST DOSE? DATE: TIME: . NEUROLOGY: HAVE YOU FALLEN IN THE PAST 6 MONTHS? NO . ANY NEW EXTREMITY NUMBNESS OR WEAKNESS? NO . CARDIOLOGY: DO YOU HAVE A PACEMAKER OR DEFIBRILLATOR? NO . RESPIRATORY: HAVE YOU BEEN SICK IN THE PAST WEEK? NO . FEVER NO . FLU LIKE SYMPTOMS? NO . COUGH NO . INTEGUMENTARY: DO YOU HAVE ANY RASHES OR OPEN SORES? NO . ALLERGIC/IMMUNO: ARE YOU ALLERGIC TO SHELLFISH OR IV DYE? NO . ANY NEW ALLERGIES? NO . PSYCHIATRIC: DO YOU HAVE THOUGHTS OF HURTING YOURSELF OR SOMEONE ELSE? NO . ARE YOU ABUSED, NEGLECTED, OR IN AN UNSAFE ENVIRONMENT? NO . ENDOCRINOLOGY: ARE YOU DIABETIC? NO . OTHER: DO YOU NEED ANY PRESCRIPTIONS? NO . IF YES, PLEASE LIST: ____ . ANY NEW PROBLEMS WITH YOUR MEDICATIONS? NO . WHEN DID YOU LAST EAT? 03/06 2330 . WHEN DID YOU LAST DRINK? 03/07 0630 . WHAT DID YOU LAST DRINK? WATER . NAME OF PERSON DRIVING YOU HOME? MEDHAT STONE . DO YOU HAVE ANY OTHER QUESTIONS OR CONCERNS NO PT HAS NOT HAD ANY VACCINES IN THE PAST 30 DAYS. . VITAL SIGNS WT 233.4 LBS, HT 63 IN, BMI 41.34 INDEX, BP 102/69 MM HG, HR 95 /MIN, RR 18 /MIN, TEMP 97.5 F, OXYGEN SAT % 97%, SAFE IN ENV? (Y/N) Y, NA INITIALS SC 08:51, REVIEWED BY: EMILY. ASSESSMENTS MYALGIA, OTHER SITE - M79.18 (PRIMARY) PROCEDURES PN TRIGGER POINT INJECTION WITH STEROIDS PRE PROCEDURE DIAGNOSIS 1. MYALGIA 2. PAIN AT BILATERAL NECK AREA, RIGHT THORACIC AREA, AND LEFT LOW BACK AREA POST PROCEDURE DIAGNOSIS 1. MYALGIA 2. PAIN AT BILATERAL NECK AREA, RIGHT THORACIC AREA, AND LEFT LOW BACK AREA PROCEDURE TRIGGER POINT INJECTION AT BILATERAL NECK AREA, RIGHT THORACIC AREA, AND LEFT LOW BACK AREA SURGEON DR. LEW MAYORGA PROFESSIONAL DEVELOPMENT DIRECTOR NONE ANESTHESIA LOCAL PRE PROCEDURE NOTE THE PATIENT HAS A HISTORY OF CHRONIC PAIN AT THE RIGHT AND LEFT NECK AREA, RIGHT THORACIC AREA, AND LEFT LOW BACK AREA. I EVALUATE THE PATIENT AND REVIEWED THE CHART. THERE IS EVIDENCE OF BANDS OF TISSUE WITH RESTRICTION OF MOVEMENT AND PRESENCE OF TRIGGER POINT AT THE AFFECTED AREA. I WENT OVER THE RISKS, ALTERNATIVES, AND BENEFITS ASSOCIATED WITH THIS PROCEDURE. THE PATIENT WOULD LIKE TO PROCEED AND GIVE CONSENT TO PERFORMED THE PROCEDURE. THE PATIENT DENIES UNEXPLAINABLE WEIGHT LOSS, FEVER, CHILLS, OR NEW CHANGES IN URINARY OR BOWEL CONTROL DESCRIPTION OF PROCEDURE THE PATIENT WAS BROUGHT TO THE PROCEDURE ROOM AND PLACED IN THE SITTING POSITION. THE AREA WAS CLEANED WITH ALCOHOL. THE PROCEDURE WAS DONE USING ASEPTIC STERILE TECHNIQUE. I CHECKED LATERALITY AND THE LEVEL WHERE THE PROCEDURE WAS GOING TO BE PERFORMED WITH THE PATIENT AND THE SUPPORTING STAFF AT THE MOMENT OF THE TIME OUT IN THE PROCEDURE ROOM. USING A 25-GAUGE NEEDLE, TRIGGER POINTS WERE INJECTED AT THE RIGHT AND LEFT NECK AREA, RIGHT THORACIC AREA, AND LEFT LOW BACK AREA WITH A TOTAL OF 40 ML OF BUPIVACAINE 0.25% AND KENALOG 40 MG. THERE WAS NO EVIDENCE OF BLOOD, PARESTHESIA OR CEREBROSPINAL FLUID DURING THE PROCEDURE. THE PATIENT WAS SENT TO THE RECOVERY ROOM. THE PATIENT WAS MOVING THE EXTREMITIES AND DOING WELL. THERE WAS NO COMPLICATION DURING THE PROCEDURE POST PROCEDURE NOTE THE PATIENT WILL BE SEEN IN A FOLLOW UP IN THE NEXT FEW WEEKS. INSTRUCTIONS WERE GIVEN, QUESTIONS WERE ANSWERED, AND THE PATIENT EXPRESSED UNDERSTANDING AND AGREES WITH THE PLAN. I, ROSA MARIA BYRD, DOCUMENTED THE ABOVE INFORMATION ACTING A SCRIBE FOR DR. MAYORGA. I HAVE REVIEWED THE ABOVE DOCUMENT, WRITTEN BY ROSA MARIA MELTON AND I VERIFY THAT IT IS ACCURATE. PROCEDURE CODES 82017 INJECT TRIGGER POINTS 3/> DISPOSITION & COMMUNICATION FOLLOW UP 3 WEEKS ELECTRONICALLY SIGNED BY LEW MAYORGA MD, MD ON 03/24/2018 AT 02:26 PM EST DISCLAIMER : THIS IS A VISIT SUMMARY EXTRACTED FROM THE [employer] CHART. IT IS NOT A COPY OF THE [employer] PROGRESS NOTE. JOSE R
== END ==
LOC: M PAIN 08:45
PROVIDERS: ATTEND Anesthesiology
DX: M79.18 Myalgia, other site (principal); M54.2 Cervicalgia; M54.6 Pain in thoracic spine; M54.5 Low back pain; I10 Essential (primary) hypertension; J45.909 Unspecified asthma, uncomplicated; M15.0 Primary generalized (osteo)arthritis; F43.10 Post-traumatic stress disorder, unspecified; F32.9 Major depressive disorder, single episode, unspecified; F41.9 Anxiety disorder, unspecified; G43.909 Migraine, unspecified, not intractable, without status migrainosus; F17.210 Nicotine dependence, cigarettes, uncomplicated; E66.01 Morbid (severe) obesity due to excess calories; Z68.41 Body mass index [BMI] 40.0-44.9, adult; Z79.899 Other long term (current) drug therapy; Z88.1 Allergy status to other antibiotic agents; Z88.2 Allergy status to sulfonamides; Z86.79 Personal history of other diseases of the circulatory system
CPT/HCPCS: 20553; J3301

== ENCOUNTER 2018-04-02 10:45 | Outpatient (RCR) | payer OTHER ==
[~2018-04-02 10:45] MED LIST changes: -BUPIVACAINE HCL 0.25% 10 ML VIAL As Ordered ONE; -BUPIVACAINE HCL 0.25% 30 ML VIAL As Ordered ONE; -TRIAMCINOLONE ACETONIDE SUSP 40 MG/ML VIAL (J3301) As Ordered ONE; -diazePAM 5 MG TAB As Ordered ONE; -oxyCODONE 5MG TAB As Ordered ONE
[2018-04-11] MEDS ORDERED: TRAZ-163 (13:24)
[2018-04-11] MEDS ORDERED: IBUP80TA (13:24)
[2018-04-11] MEDS ORDERED: TIZA-208 (13:24)
[2018-04-11] MEDS ORDERED: HYDR-3363 (13:24)
[2018-04-11] MEDS ORDERED: VITA50005 (13:24)
[2018-04-11] MEDS ORDERED: DULO60CA35 (13:24)
[2018-04-11] MEDS ORDERED: ATOR1TAB19 (13:24)
[2018-04-11] MEDS ORDERED: NORCOTAB PO (15:48)
== END 2018-04-18 ==
LOC: M PT 10:45
PROVIDERS: ATTEND Anesthesiology
DX: M54.2 Cervicalgia (principal)

== ENCOUNTER 2018-04-11 13:11 | Emergency (ER) | payer OTHER ==
[~2018-04-11] VITALS: Ht 160 cm; Wt 103.8 kg
[2018-04-11] MEDS ORDERED: VITA50005 (13:24)
[2018-04-11] MEDS ORDERED: TIZA-208 (13:24)
[2018-04-11] MEDS ORDERED: ATOR1TAB19 (13:24)
[2018-04-11] MEDS ORDERED: IBUP80TA (13:24)
[2018-04-11] MEDS ORDERED: DULO60CA35 (13:24)
[2018-04-11] MEDS ORDERED: HYDR-3363 (13:24)
[2018-04-11] MEDS ORDERED: TRAZ-163 (13:24)
[2018-04-11] MEDS ORDERED: NORCOTAB PO (15:48)
[2018-04-11 15:59] VITALS: BP 102/67
== END 2018-04-11 16:02 | disposition home or self-care (01) ==
LOC: M ED 13:11
DX: G89.29 Other chronic pain (principal); M54.2 Cervicalgia; M54.6 Pain in thoracic spine; Z88.0 Allergy status to penicillin; Z88.2 Allergy status to sulfonamides; Z87.891 Personal history of nicotine dependence

== ENCOUNTER → 2018-04-12 | Outpatient (CLI) | payer OTHER ==
[~2018-04-12] MED LIST changes: +ATOR1TAB19; +DULO60CA35; +HYDR-3363; +IBUP80TA; +NORCOTAB PO; +TIZA-208; +TRAZ-163; +VITA50005
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
== END ==
LOC: M PAIN 14:45
PROVIDERS: ATTEND Anesthesiology
DX: M79.18 Myalgia, other site (principal); M54.5 Low back pain; M54.2 Cervicalgia; I10 Essential (primary) hypertension; J45.909 Unspecified asthma, uncomplicated; G43.909 Migraine, unspecified, not intractable, without status migrainosus; M15.0 Primary generalized (osteo)arthritis; F43.10 Post-traumatic stress disorder, unspecified; F32.9 Major depressive disorder, single episode, unspecified; F41.9 Anxiety disorder, unspecified; F17.210 Nicotine dependence, cigarettes, uncomplicated; E66.01 Morbid (severe) obesity due to excess calories; Z68.41 Body mass index [BMI] 40.0-44.9, adult; Z79.899 Other long term (current) drug therapy; Z88.1 Allergy status to other antibiotic agents; Z88.2 Allergy status to sulfonamides

== ENCOUNTER → 2018-05-17 | Outpatient (CLI) | payer OTHER ==
--- NOTE | 2018-05-27 00:20 | ECWPNPC ---
PATIENT NAME: JUANITA GUARDADO : 1980 GENDER: FEMALE VISIT DATE: 05/17/2018 DISCHARGE DATE: 05/17/18 1145 VISIT LOCKED DATE TIME: PHYSICIAN: LEW MAYORGA MD RESOURCE: LEW MAYORGA MD REASON FOR APPOINTMENT 1. LOW BACK AND NECK- NOT NF HISTORY OF PRESENT ILLNESS HISTORY OF PRESENT ILLNESS: PAIN THE PATIENT DESCRIBES THE PAIN... 38 YEAR OLD FEMALE PATIENT WITH A HISTORY OF CHRONIC LOW BACK, NECK, AND SHOULDER PAIN. THE PATIENT DESCRIBES THE PAIN ACHING, SORE, TENDER, AND CONTINUOUS WITH A PAIN SCORE OF 5-8/10 DEPENDING ON PHYSICAL ACTIVITY. THE PATIENT SAYS THAT THE PAIN IN HER LOW BACK IS MAINLY LOCATED ON THE LEFT SIDE AND RADIATES INTO HER LEFT HIP AND DOWN HER LEFT LEG WITH SOME NUMBNESS. THE PATIENT SAYS THAT THE PAIN IN HER NECK IS MAINLY ON THE RIGHT SIDE AND RADIATES INTO HER RIGHT SHOULDER TOWARDS HER COLLARBONE AND DOWN HER RIGHT ARM. PATIENT DENIES UNEXPLAINABLE WEIGHT LOSS, FEVER, CHILLS, NEW CHANGES ON HER URINARY OR BOWEL CONTROL. FALL RISK SCREENING: SCREENING : NO FALLS IN THE PAST YEAR. CURRENT MEDICATIONS TAKING IBUPROFEN 800 MG TABLET 1 TABLET WITH FOOD OR MILK NEEDED ORALLY THREE TIMES A DAY MDD3, NOTES: RAN OUT TAKING TRAZODONE HCL 100 MG TABLET 2 TABLET AT BEDTIME ORALLY ONCE A DAY TAKING TOPAMAX 200 MG TABLET 1 TABLET ORALLY DAILY TAKING GABAPENTIN 600 MG TABLET 1 TABLET ORALLY THREE TIMES DAILY TAKING DULOXETINE HCL 60 MG CAPSULE DELAYED RELEASE PARTICLES 1 CAPSULE ORALLY BID TAKING TIZANIDINE HCL 4 MG TABLET 1 TABLET NEEDED ORALLY BID TAKING LISINOPRIL-HYDROCHLOROTHIAZIDE 20-12.5 MG TABLET 2 TABLETS ORALLY ONCE A DAY TAKING MIRENA IUD TAKING HYDROXYZINE HCL 25 MG TABLET 1 TABLET NEEDED ORALLY EVERY 8 HRS TAKING ATORVASTATIN CALCIUM 10 MG TABLET 1 TABLET ORALLY ONCE A DAY TAKING VITAMIN D 69571 UNIT CAPSULE 1 CAPSULE ORALLY WEEKLY NOT-TAKING KETOROLAC TROMETHAMINE 10 MG TABLET 1 TABLET WITH FOOD OR MILK NEEDED ORALLY FOR PAIN EVERY 6 HRS MDD3 NOT-TAKING SOMA 350 MG TABLET 1 TABLET NEEDED ORALLY DAILY NOT-TAKING HYDROCODONE-ACETAMINOPHEN 5-325 MG TABLET 1 TABLET NEEDED ORALLY EVERY 6 HRS, NOTES: GIVEN IN ED 04/11/18 NOT-TAKING VOLTAREN 1 % GEL 1 STRIP TRANSDERMAL 3 TIMES DAILY NEEDED FOR PAIN, NOTES: INSURANCE WOULDN'T COVER NOT-TAKING VITAMIN D-3 1000 UNIT CAPSULE 2 CAPSULE ORALLY ONCE A DAY, NOTES: RAN OUT MEDICATION LIST REVIEWED AND RECONCILED WITH THE PATIENT PAST MEDICAL HISTORY SYNCOPE HTN ASTHSMA WHOLE BODY ARTHRITIS PTSD NECK AND BACK PAIN CARPAL TUNNEL RIGHT CHRONIC PAIN DEPRESSION AND ANXIETY MIGRAINES ALLERGIES AMOXICILLIN: RASH: ALLERGY SULFA (FOR ALLERGY USE ONLY): RASH: ALLERGY SURGICAL HISTORY GALL BLADDER REMOVAL 03/2008 BICEP REPAIR LEFT 02/28 CARPAL TUNNEL RIGHT WRIST 10/2017 FAMILY HISTORY FATHER: ALIVE 56 YRS, DIAGNOSED WITH HYPERTENSION MOTHER: ALIVE 57 YRS, DIAGNOSED WITH OTHER 1 BROTHER(S) , 2 SISTER(S) - HEALTHY. 1 SON(S) , 1 DAUGHTER(S) . MOM-DEPRESSION, BACK PROBLEMSDAUGHTER HAS CELIAC AND , ENVIRONMENTAL [id number]/18ON HAS ASTHMA, ENVIRONMENTAL ALLERGIES 02/06/18. SOCIAL HISTORY GENERAL: TOBACCO USE ARE YOU A:CURRENT SMOKER ARE YOU INTERESTED IN QUITTING?NOT READY TO QUIT COUNSELED THE PATIENT ON SMOKING EFFECTS, EDUCATION [id number]/01/2019 HOW MANY CIGARETTES A DAY DO YOU SMOKE?5 OR LESS HOW SOON AFTER YOU WAKE UP DO YOU SMOKE YOUR FIRST CIGARETTE?AFTER 60 MIN HOW OFTEN DO YOU SMOKE CIGARETTES?SOME DAYS, BUT NOT EVERY DAY PATIENT COUNSELED ON THE DANGERS OF TOBACCO USE AND URGED TO QUIT:05/17/2018 ALCOHOL SCREENING DID YOU HAVE A DRINK CONTAINING ALCOHOL IN THE PAST YEAR?YES HOW OFTEN DID YOU HAVE SIX OR MORE DRINKS ON ONE OCCASION IN THE PAST YEAR?NEVER (0 POINTS) HOW MANY DRINKS DID YOU HAVE ON A TYPICAL DAY WHEN YOU WERE DRINKING IN THE PAST YEAR?1 OR 2 (0 POINTS) HOW OFTEN DID YOU HAVE A DRINK CONTAINING ALCOHOL IN THE PAST YEAR?MONTHLY OR LESS (1 POINT) POINTS1 INTERPRETATIONNEGATIVE RECREATIONAL DRUG USE DRUG USE?NO CAFFEINE CAFFEINE USE?YES OCCASIONALLY MORMON [id number] NONE LANGUAGE LANGUAGES SPOKEN:AMHARIC EDUCATION LEVEL OF EDUCATION:NOT FINISHED COLLEGE LEARNING BARRIERS / SPECIAL NEEDS BARRIERS TO LEARNING?NO HEARING IMPAIRED?NO VISION IMPAIRED?YES COGNITIVELY IMPAIRED?NO :CORRECTIVE LENSES READINESS TO LEARN?YES LEARNING PREFERENCES?YES :DEMONSTRATION/VERBAL INSTRUCTION LEARNING CAPABILITIES PRESENT?YES EMOTIONAL BARRIERS?YES COMMENTS DEPRESSION AND ANXIETY SPECIAL DEVICES?NO HOOKER MACHINE TENDER NEEDED?NO DOMESTIC VIOLENCE DO YOU FEEL SAFE IN YOUR ENVIRONMENT?YES DIET: UNEMPLOYED. EXERCISE: NONE. MARITAL STATUS: .. OTHERS AT HOME: OTHER NON-RELATIVE, CHILDREN. NEW PATIENT PAIN DIARY FROM 0-10, WHAT LEVEL IS YOUR PAIN TODAY?9 PAIN CLINIC PFS, CLERGY, PUBLIC HEALTH REFERRALS PFS REFERRAL NEEDED?NO CLERGY REFERRAL NEEDED?NO PUBLIC HEALTH REFERRAL NEEDED?NO WAS THE PROVIDER NOTIFIED OF ANY PERTINENT INFO? N/A HAS THE PATIENT BEEN EDUCATED REGARDING HIS/HER PLAN OF CARE?YES HAS THE PATIENT BEEN EDUCATED REGARDING PAIN, THE RISK FOR PAIN, THE IMPORTANCE OF EFFECTIVE PAIN MANAGEMENT, AND THE PAIN ASSESSMENT PROCESS?YES HOUSING: RENTS APARTMENT. ADVANCE DIRECTIVE ADVANCE DIRECTIVE DISCUSSED WITH PATIENT:YES HCP INFORMATION GIVEN, PATIENT DECLINED ASSISTANCE IN FILLING OUT. 03/07/18 REVIEWED WITH PT. ADREVIEWED WITH PT 04/12/18 1512 BVREVIEWED WITH PATIENT 05/17/18 1034 JS. HOSPITALIZATION/MAJOR DIAGNOSTIC PROCEDURE SURGERY RELATED CHILDBIRTH 2001,2013 COMPLICATIONS WHEN HERE TO HAVE CARPAL TUNNEL--DID NOT HAVE SURGERY 07/11/2017 REVIEW OF SYSTEMS REVIEWED BY: PROVIDER: LEW MAYORGA MD . CONSTITUTIONAL: ANY CHANGE IN YOUR MEDICAL CONDITION? NO . CHILLS NO . FEVER NO . INFECTION: DO YOU HAVE NEW INFECTIONS? NO . DO YOU HAVE HISTORY OF MRSA? NO . MUSCULOSKELETAL: ANY NEW PATTERNS OF PAIN OR NUMBNESS? NO . GASTROENTEROLOGY: ANY NEW CHANGE IN BOWEL CONTROL? NO . GENITOURINARY: ANY NEW CHANGE IN BLADDER CONTROL? NO . IS THERE A CHANCE YOU COULD BE ? NO . HEMATOLOGY/LYMPH: DO YOU TAKE ANY BLOOD THINNERS? (FOR EXAMPLE- COUMADIN, PLAVIX, AGGRENOX, PLATEL, PRADAXA, OR XARELTO) NO . WHEN WAS YOUR LAST DOSE? DATE: TIME: . NEUROLOGY: HAVE YOU FALLEN IN THE PAST 12 MONTHS? NO . ANY NEW EXTREMITY NUMBNESS OR WEAKNESS? YES, STATES NUMBNESS AND WEAKNESS TO BILATERAL LEGS AFTER SITTING FOR ONLY A BRIEF PERIOD OF TIME . CARDIOLOGY: DO YOU HAVE A PACEMAKER OR DEFIBRILLATOR? NO . RESPIRATORY: HAVE YOU BEEN SICK IN THE PAST WEEK? NO . FEVER NO . FLU LIKE SYMPTOMS? NO . COUGH YES, STATES PRODUCTIVE COUGH AT TIMES . INTEGUMENTARY: DO YOU HAVE ANY RASHES OR OPEN SORES? NO . ALLERGIC/IMMUNO: ARE YOU ALLERGIC TO IV DYE? NO . ANY NEW ALLERGIES? NO . PSYCHIATRIC: DO YOU HAVE THOUGHTS OF HURTING YOURSELF OR SOMEONE ELSE? NO . ARE YOU ABUSED, NEGLECTED, OR IN AN UNSAFE ENVIRONMENT? NO . ENDOCRINOLOGY: ARE YOU DIABETIC? NO . OTHER: DO YOU NEED ANY PRESCRIPTIONS? YES . IF YES, PLEASE LIST: ____IBUPROFEN . ANY NEW PROBLEMS WITH YOUR MEDICATIONS? NO . WHEN DID YOU LAST EAT? ____ . WHEN DID YOU LAST DRINK? ____ . WHAT DID YOU LAST DRINK? ____ . NAME OF PERSON DRIVING YOU HOME? ____ . DO YOU HAVE ANY OTHER QUESTIONS OR CONCERNS NO . VITAL SIGNS WT 232.2 LBS, HT 63 IN, BMI 41.13 INDEX, BP 112/84 MM HG, HR 98 /MIN, RR 16 /MIN, TEMP 97.2 F, OXYGEN SAT % 97%, SAFE IN ENV? (Y/N) YES, NA INITIALS AW 1025, REVIEWED BY: IRAM. EXAMINATION GENERAL EXAMINATION: PATIENT IS ALERT O X 3 AND COOPERATIVE. PATIENT CAN ABDUCT HER LEFT ARM WITHOUT DIFFICULTY AND CAN ABDUCT HER RIGHT ARM TO SHOULDER LEVEL. PAIN INCREASES OVER THE CERVICAL FACET JOINTS WITH EXTENSION AND LATERAL ROTATION OF THE NECK. PRESENCE OF TRIGGER POINTS AND BANDS OF TISSUE WITH RESTRICTION OF MOVEMENT OF THE NECK. MRI OF THE CERVICAL SPINE DONE ON 11/17/2016 SHOWS A DISC PROTRUSION AT C5-C6. ANTALGIC GAIT. PATIENT IS LIMPING FROM HER LEFT LEG. LEFT LEG IS WEAKER AT EXTENSION AND FLEXION. STRAIGHT LEG RAISE OF THE LEFT LEG IS POSITIVE AT 45 DEGREES FOR RADICULOPATHY. MRI OF THE LUMBAR SPINE DONE ON 06/03/2017 SHOWS A DISC EXTRUSION AT L5-S1. 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 TREATMENT MYALGIA, OTHER SITE CLINICAL NOTES: WE DISCUSSED SEVERAL ISSUES WITH MRS. GUARDADO'S PAIN MANAGEMENT CASE. DUE TO THE LUMBAR RADICULOPATHY, THE PATIENT WILL CONSIDER A LUMBAR EPIDURAL STEROID INJECTION IN THE FUTURE. DUE TO THE TRIGGER POINTS, BANDS OF TISSUE, AND RESTRICTION OF MOVEMENT IN THE NECK, I WOULD LIKE TO MOVE FORWARD WITH A TRIGGER POINT INJECTION AT THIS TIME. WE DISCUSSED THE BENEFITS, RISKS, AND ALTERNATIVES OF THE INJECTION AND THE PATIENT WOULD LIKE TO PROCEED. THE PATIENT WILL FOLLOW UP 3 WEEKS AFTER THE INJECTION. INSTRUCTIONS WERE GIVEN, QUESTIONS WERE ANSWERED, PATIENT REPORTS UNDERSTANDING AND AGREES WITH THE PLAN. I, ROSA MARIA BYRD, DOCUMENTED THE ABOVE INFORMATION ACTING A SCRIBE FOR DR. MAYORGA. I HAVE REVIEWED THE ABOVE DOCUMENT, WRITTEN BY ROSA MARIA SALEEMIBBettie AND I VERIFY THAT IT IS ACCURATE. PREVENTIVE MEDICINE PAIN CLINIC TEACHING: PROCEDURE TEACHING PT GIVEN WRITTEN AND VERBAL PRE-PROCEDURE INSTRUCTIONS. PT VERBALIZES UNDERSTANDING OF ALL INSTRUCTIONS. MEDHAT BOTELLO 05/17/2018 11:46:20 AM > . PROCEDURE CODES FA211 ESTABILISHED PATIENT [facility] FACILITY CHARGE G8427 CURRENT MEDS W/DOSAGES DOCUMENTED G8730 PAIN ASSESS POS TOOL F/U PLAN DOC DISPOSITION & COMMUNICATION FOLLOW UP TPI & F/U 3 WEEKS AFTER ELECTRONICALLY SIGNED BY LEW MAYORGA MD, ON 05/26/2018 AT 08:45 AM EDT DISCLAIMER : THIS IS A VISIT SUMMARY EXTRACTED FROM THE [email or web address] CHART. IT IS NOT A COPY OF THE [email or web address] PROGRESS NOTE. OSCARD
== END ==
LOC: M PAIN 10:15
PROVIDERS: ATTEND Anesthesiology
DX: M79.18 Myalgia, other site (principal); M51.16 Intervertebral disc disorders with radiculopathy, lumbar region; M47.812 Spondylosis without myelopathy or radiculopathy, cervical region; I10 Essential (primary) hypertension; J45.909 Unspecified asthma, uncomplicated; M19.90 Unspecified osteoarthritis, unspecified site; Z86.59 Personal history of other mental and behavioral disorders; G43.009 Migraine without aura, not intractable, without status migrainosus; F17.210 Nicotine dependence, cigarettes, uncomplicated; E66.01 Morbid (severe) obesity due to excess calories; Z68.41 Body mass index [BMI] 40.0-44.9, adult; Z88.1 Allergy status to other antibiotic agents; Z88.2 Allergy status to sulfonamides; Z79.899 Other long term (current) drug therapy

== ENCOUNTER → 2018-06-13 | Outpatient (CLI) | payer OTHER ==
[~2018-06-13] MED LIST changes: +BUPIVACAINE HCL 0.25% 10 ML VIAL As Ordered ONE; +BUPIVACAINE HCL 0.25% 30 ML VIAL As Ordered ONE; +TRIAMCINOLONE ACETONIDE SUSP 40 MG/ML VIAL (J3301) As Ordered ONE; +diazePAM 5 MG TAB As Ordered ONE; +oxyCODONE 5MG TAB As Ordered ONE
--- NOTE | 2018-06-15 01:41 | ECWPNPC ---
PATIENT NAME: JUANITA GUARDADO : 1980 GENDER: FEMALE VISIT DATE: 06/13/2018 DISCHARGE DATE: 06/13/18 1140 VISIT LOCKED DATE TIME: PHYSICIAN: LEW MAYORGA MD RESOURCE: LEW MAYORGA MD REASON FOR APPOINTMENT 1. TPI HISTORY OF PRESENT ILLNESS HISTORY OF PRESENT ILLNESS: PAIN THE PATIENT DESCRIBES THE PAIN... FALL RISK SCREENING: SCREENING :NO FALLS REPORTED IN THE LAST YEAR CURRENT MEDICATIONS TAKING TRAZODONE HCL 100 MG TABLET 2 TABLET AT BEDTIME ORALLY ONCE A DAY, NOTES: 06/12 2029 TAKING TOPAMAX 200 MG TABLET 1 TABLET ORALLY BEFORE BEDTIME, NOTES: 06/12 2029 TAKING GABAPENTIN 800 MG TABLET 1 TABLET ORALLY THREE TIMES DAILY, NOTES: 06/13 899 TAKING DULOXETINE HCL 60 MG CAPSULE DELAYED RELEASE PARTICLES 1 CAPSULE ORALLY BID, NOTES: 06/13 899 TAKING TIZANIDINE HCL 4 MG TABLET 1 TABLET NEEDED ORALLY BID, NOTES: 06/13 899 TAKING LISINOPRIL-HYDROCHLOROTHIAZIDE 20-12.5 MG TABLET 2 TABLETS ORALLY ONCE A DAY, NOTES: 06/13 899 TAKING MIRENA IUD TAKING HYDROXYZINE HCL 25 MG TABLET 1 TABLET NEEDED ORALLY EVERY 8 HRS, NOTES: 06/13 899 TAKING ATORVASTATIN CALCIUM 10 MG TABLET 1 TABLET ORALLY ONCE A DAY, NOTES: 06/13 899 TAKING VITAMIN D 98465 UNIT CAPSULE 1 CAPSULE ORALLY WEEKLY, NOTES: 06/07 NOT-TAKING IBUPROFEN 800 MG TABLET 1 TABLET WITH FOOD OR MILK NEEDED ORALLY THREE TIMES A DAY MDD3, NOTES: INSURANCE WON'T COVER NOT-TAKING KETOROLAC TROMETHAMINE 10 MG TABLET 1 TABLET WITH FOOD OR MILK NEEDED ORALLY FOR PAIN EVERY 6 HRS MDD3 NOT-TAKING SOMA 350 MG TABLET 1 TABLET NEEDED ORALLY DAILY NOT-TAKING HYDROCODONE-ACETAMINOPHEN 5-325 MG TABLET 1 TABLET NEEDED ORALLY EVERY 6 HRS, NOTES: GIVEN IN ED 04/11/18 NOT-TAKING VOLTAREN 1 % GEL 1 STRIP TRANSDERMAL 3 TIMES DAILY NEEDED FOR PAIN, NOTES: INSURANCE WOULDN'T COVER NOT-TAKING VITAMIN D-3 1000 UNIT CAPSULE 2 CAPSULE ORALLY ONCE A DAY, NOTES: RAN OUT MEDICATION LIST REVIEWED AND RECONCILED WITH THE PATIENT PAST MEDICAL HISTORY SYNCOPE HTN ASTHSMA WHOLE BODY ARTHRITIS PTSD NECK AND BACK PAIN CARPAL TUNNEL RIGHT CHRONIC PAIN DEPRESSION AND ANXIETY MIGRAINES FIBROMYALGIA ALLERGIES AMOXICILLIN: RASH - ALLERGY SULFA (FOR ALLERGY USE ONLY): RASH - ALLERGY SURGICAL HISTORY GALL BLADDER REMOVAL 03/2008 BICEP REPAIR LEFT 02/28 CARPAL TUNNEL RIGHT WRIST 10/2017 FAMILY HISTORY FATHER: ALIVE 56 YRS, DIAGNOSED WITH HYPERTENSION MOTHER: ALIVE 57 YRS, OTHER 1 BROTHER(S) , 2 SISTER(S) - HEALTHY. 1 SON(S) , 1 DAUGHTER(S) . MOM-DEPRESSION, BACK PROBLEMS\NDAUGHTER HAS CELIAC AND , ENVIRONMENTAL [id number]\/21\/18\NSON HAS ASTHMA, ENVIRONMENTAL ALLERGIES . SOCIAL HISTORY GENERAL: TOBACCO USE ARE YOU A:CURRENT SMOKER ARE YOU INTERESTED IN QUITTING?NOT READY TO QUIT COUNSELED THE PATIENT ON SMOKING EFFECTS, EDUCATION [id number]/28/2019 HOW MANY CIGARETTES A DAY DO YOU SMOKE?5 OR LESS HOW SOON AFTER YOU WAKE UP DO YOU SMOKE YOUR FIRST CIGARETTE?AFTER 60 MIN HOW OFTEN DO YOU SMOKE CIGARETTES?SOME DAYS, BUT NOT EVERY DAY PATIENT COUNSELED ON THE DANGERS OF TOBACCO USE AND URGED TO QUIT:06/13/2018 LATEX QUESTIONNAIRE LATEX ALLERGY : HAVE YOU EVER DEVELOPED ANY TYPE OF REACTION AFTER HANDLING LATEX PRODUCTS SUCH RUBBER GLOVES, CONDOMS, DIAPHRAGMS, BALLOONS, SOCKS, OR UNDERWEAR?NO LATEX ALLERGY : HAVE YOU EVER DEVELOPED ANY TYPE OF REACTION DURING OR AFTER DENTAL APPOINTMENT, VAGINAL/RECTAL EXAMINATION, SURGICAL PROCEDURE, OR ANY OTHER EXPOSURE?NO LATEX RISK : HAVE YOU EVER HAD ANY DIFFICULTY BREATHING OR HIVES AFTER EATING OR HANDLING ANY FRUITS, OR VEGETABLES; SUCH KIWI, BANANAS, STONE FRUITS, OR CHESTNUTSNO LATEX RISK : DO YOU HAVE A PREVIOUS PERSONAL HISTORY OF MORE THAN NINE SURGERIES, SPINA BIFIDA, OR REPEATED CATHERTIZATIONS? NO LATEX RISK : ARE YOU FREQUENTLY EXPOSED TO LATEX PRODUCTS IN YOUR OCCUPATION?NO DATE ASKED : 06/13/2018 ALCOHOL SCREENING DID YOU HAVE A DRINK CONTAINING ALCOHOL IN THE PAST YEAR?YES HOW OFTEN DID YOU HAVE A DRINK CONTAINING ALCOHOL IN THE PAST YEAR?MONTHLY OR LESS (1 POINT) HOW MANY DRINKS DID YOU HAVE ON A TYPICAL DAY WHEN YOU WERE DRINKING IN THE PAST YEAR?1 OR 2 (0 POINTS) HOW OFTEN DID YOU HAVE SIX OR MORE DRINKS ON ONE OCCASION IN THE PAST YEAR?NEVER (0 POINTS) POINTS1 INTERPRETATIONNEGATIVE RECREATIONAL DRUG USE DRUG USE?NO CAFFEINE CAFFEINE USE?YES OCCASIONALLY EVANGELICAL [id number] NONE LANGUAGE LANGUAGES SPOKEN:[place] EDUCATION LEVEL OF EDUCATION:NOT FINISHED COLLEGE LEARNING BARRIERS / SPECIAL NEEDS BARRIERS TO LEARNING?NO HEARING IMPAIRED?NO VISION IMPAIRED?YES :CORRECTIVE LENSES COGNITIVELY IMPAIRED?NO READINESS TO LEARN?YES LEARNING PREFERENCES?YES :DEMONSTRATION/VERBAL INSTRUCTION LEARNING CAPABILITIES PRESENT?YES EMOTIONAL BARRIERS?YES COMMENTS DEPRESSION AND ANXIETY SPECIAL DEVICES?NO PARK MAINTAINER NEEDED?NO DOMESTIC VIOLENCE DO YOU FEEL SAFE IN YOUR ENVIRONMENT?YES DIET: UNEMPLOYED. EXERCISE: NONE. MARITAL STATUS: .. OTHERS AT HOME: OTHER NON-RELATIVE, CHILDREN. PAIN CLINIC PFS, CLERGY, PUBLIC HEALTH REFERRALS PFS REFERRAL NEEDED?NO CLERGY REFERRAL NEEDED?NO PUBLIC HEALTH REFERRAL NEEDED?NO WAS THE PROVIDER NOTIFIED OF ANY PERTINENT INFO? N/A HAS THE PATIENT BEEN EDUCATED REGARDING HIS/HER PLAN OF CARE?YES HAS THE PATIENT BEEN EDUCATED REGARDING PAIN, THE RISK FOR PAIN, THE IMPORTANCE OF EFFECTIVE PAIN MANAGEMENT, AND THE PAIN ASSESSMENT PROCESS?YES HOUSING: RENTS APARTMENT. ADVANCE DIRECTIVE ADVANCE DIRECTIVE DISCUSSED WITH PATIENT:YES 06/13/18 PT DOES NOT HAVE ANY ADVANCED DIRECTIVES. SHE ALREADY HAS HCP INFORMATION AND DECLINES ASSISTANCE IN FILLING IT OUT AT THIS TIME. AD 03/07/18 REVIEWED WITH PT. ADREVIEWED WITH PT 04/12/18 1512 BVREVIEWED WITH PATIENT 05/17/18 1034 JS. HOSPITALIZATION/MAJOR DIAGNOSTIC PROCEDURE SURGERY RELATED CHILDBIRTH COMPLICATIONS WHEN HERE TO HAVE CARPAL TUNNEL--DID NOT HAVE SURGERY 07/11/2017 REVIEW OF SYSTEMS REVIEWED BY: PROVIDER: . CONSTITUTIONAL: ANY CHANGE IN YOUR MEDICAL CONDITION? YES, FIBROMYALGIA . CHILLS NO . FEVER NO . INFECTION: DO YOU HAVE NEW INFECTIONS? NO . DO YOU HAVE HISTORY OF MRSA? NO . MUSCULOSKELETAL: ANY NEW PATTERNS OF PAIN OR NUMBNESS? NO . GASTROENTEROLOGY: ANY NEW CHANGE IN BOWEL CONTROL? NO . GENITOURINARY: ANY NEW CHANGE IN BLADDER CONTROL? NO . IS THERE A CHANCE YOU COULD BE ? NO . HEMATOLOGY/LYMPH: DO YOU TAKE ANY BLOOD THINNERS? (FOR EXAMPLE- COUMADIN, PLAVIX, AGGRENOX, PLATEL, PRADAXA, OR XARELTO) NO . WHEN WAS YOUR LAST DOSE? DATE: TIME: . NEUROLOGY: HAVE YOU FALLEN IN THE PAST 12 MONTHS? NO . ANY NEW EXTREMITY NUMBNESS OR WEAKNESS? NO . CARDIOLOGY: DO YOU HAVE A PACEMAKER OR DEFIBRILLATOR? NO . RESPIRATORY: HAVE YOU BEEN SICK IN THE PAST WEEK? NO . FEVER NO . FLU LIKE SYMPTOMS? NO . COUGH NO . INTEGUMENTARY: DO YOU HAVE ANY RASHES OR OPEN SORES? NO . ALLERGIC/IMMUNO: ARE YOU ALLERGIC TO IV DYE? NO . ANY NEW ALLERGIES? NO . PSYCHIATRIC: DO YOU HAVE THOUGHTS OF HURTING YOURSELF OR SOMEONE ELSE? NO . ARE YOU ABUSED, NEGLECTED, OR IN AN UNSAFE ENVIRONMENT? NO . ENDOCRINOLOGY: ARE YOU DIABETIC? NO . OTHER: DO YOU NEED ANY PRESCRIPTIONS? NO . IF YES, PLEASE LIST: ____ . ANY NEW PROBLEMS WITH YOUR MEDICATIONS? NO . WHEN DID YOU LAST EAT? 06/12 1929 . WHEN DID YOU LAST DRINK? 06/13 899 . WHAT DID YOU LAST DRINK? WATER . NAME OF PERSON DRIVING YOU HOME? HUMBLE . DO YOU HAVE ANY OTHER QUESTIONS OR CONCERNS NO . VITAL SIGNS WT 237.6 LBS, HT 63 IN, BMI 42.08 INDEX, BP 113/67 MM HG, HR 85 /MIN, RR 16 /MIN, TEMP 98.0 F, OXYGEN SAT % 96%, SAFE IN ENV? (Y/N) Y, NA INITIALS AW 1008, REVIEWED BY: AD. ASSESSMENTS MYALGIA, OTHER SITE - M79.18 (PRIMARY) PROCEDURES PN TRIGGER POINT INJECTION WITH STEROIDS PRE PROCEDURE DIAGNOSIS 1. MYALGIA 2. PAIN AT RIGHT NECK AREA POST PROCEDURE DIAGNOSIS 1. MYALGIA 2. PAIN AT RIGHT NECK AREA PROCEDURE TRIGGER POINT INJECTION AT RIGHT NECK AREA SURGEON DR. LEW MAYORGA LIQUEFIED NATURAL GAS PLANT OPERATOR NONE ANESTHESIA LOCAL PRE PROCEDURE NOTE THE PATIENT HAS A HISTORY OF CHRONIC PAIN AT THE RIGHT NECK AREA. I EVALUATE THE PATIENT AND REVIEWED THE CHART. THERE IS EVIDENCE OF BANDS OF TISSUE WITH RESTRICTION OF MOVEMENT AND PRESENCE OF TRIGGER POINT AT THE AFFECTED AREA. I WENT OVER THE RISKS, ALTERNATIVES, AND BENEFITS ASSOCIATED WITH THIS PROCEDURE. THE PATIENT WOULD LIKE TO PROCEED AND GIVE CONSENT TO PERFORMED THE PROCEDURE. THE PATIENT DENIES UNEXPLAINABLE WEIGHT LOSS, FEVER, CHILLS, OR NEW CHANGES IN URINARY OR BOWEL CONTROL DESCRIPTION OF PROCEDURE THE PATIENT WAS BROUGHT TO THE PROCEDURE ROOM AND PLACED IN THE SITTING POSITION. THE AREA WAS CLEANED WITH ALCOHOL. THE PROCEDURE WAS DONE USING ASEPTIC STERILE TECHNIQUE. I CHECKED LATERALITY AND THE LEVEL WHERE THE PROCEDURE WAS GOING TO BE PERFORMED WITH THE PATIENT AND THE SUPPORTING STAFF AT THE MOMENT OF THE TIME OUT IN THE PROCEDURE ROOM. USING A 25-GAUGE NEEDLE, TRIGGER POINTS WERE INJECTED AT THE RIGHT NECK AREA WITH A TOTAL OF 40 ML OF BUPIVACAINE 0.25% AND KENALOG 40 MG. THERE WAS NO EVIDENCE OF BLOOD, PARESTHESIA OR CEREBROSPINAL FLUID DURING THE PROCEDURE. THE PATIENT WAS SENT TO THE RECOVERY ROOM. THE PATIENT WAS MOVING THE EXTREMITIES AND DOING WELL. THERE WAS NO COMPLICATION DURING THE PROCEDURE POST PROCEDURE NOTE THE PATIENT WILL BE SEEN IN A FOLLOW UP IN THE NEXT FEW WEEKS. INSTRUCTIONS WERE GIVEN, QUESTIONS WERE ANSWERED, AND THE PATIENT EXPRESSED UNDERSTANDING AND AGREES WITH THE PLAN. I, ROSA MARIA BYRD, DOCUMENTED THE ABOVE INFORMATION ACTING A SCRIBE FOR DR. MAYORGA. I HAVE REVIEWED THE ABOVE DOCUMENT, WRITTEN BY ROSA MARIA SALEEMIBBettie AND I VERIFY THAT IT IS ACCURATE. PROCEDURE CODES 81663 INJ TRIGGER POINT / [facility] [place] DISPOSITION & COMMUNICATION FOLLOW UP 3 WEEKS ELECTRONICALLY SIGNED BY LEW MAYORGA MD, ON 06/14/2018 AT 03:39 PM EDT DISCLAIMER : THIS IS A VISIT SUMMARY EXTRACTED FROM THE [employer] CHART. IT IS NOT A COPY OF THE [employer] PROGRESS NOTE. JOSE R
== END ==
LOC: M PAIN 10:00
PROVIDERS: ATTEND Anesthesiology
DX: M79.18 Myalgia, other site (principal); M54.2 Cervicalgia; I10 Essential (primary) hypertension; J45.909 Unspecified asthma, uncomplicated; G43.909 Migraine, unspecified, not intractable, without status migrainosus; F17.210 Nicotine dependence, cigarettes, uncomplicated; E66.01 Morbid (severe) obesity due to excess calories; Z68.41 Body mass index [BMI] 40.0-44.9, adult; Z79.899 Other long term (current) drug therapy; Z88.1 Allergy status to other antibiotic agents; Z88.2 Allergy status to sulfonamides; Z86.59 Personal history of other mental and behavioral disorders
CPT/HCPCS: 20552; J3301

== ENCOUNTER → 2018-07-01 | Outpatient (CLI) | payer OTHER, MEDICAID ==
[~2018-07-01] MED LIST changes: -BUPIVACAINE HCL 0.25% 10 ML VIAL As Ordered ONE; -BUPIVACAINE HCL 0.25% 30 ML VIAL As Ordered ONE; +HYDR-3715 PO; -NORCOTAB PO; -TIZA-208; +TIZA4TAB4; -TRIAMCINOLONE ACETONIDE SUSP 40 MG/ML VIAL (J3301) As Ordered ONE; -diazePAM 5 MG TAB As Ordered ONE; -oxyCODONE 5MG TAB As Ordered ONE
[2018-07-01 12:15] LABS: BASO % 0.3 % (0.0-1.0); EOS # 0.3 10^3/uL (0.0-0.50); EOS % 2.1 % (0.0-3.0); HEMATOCRIT 40.9 % (36.0-47.0); HEMOGLOBIN 13.6 g/dl (12.0-15.5); LYMPH # 4.4 10^3/uL (1.5-4.5); LYMPH % 28.4 % (24.0-44.0); MEAN CORPUSCULAR HEMOGLOBIN 30.1 pg (27.0-33.0); MEAN CORPUSCULAR HGB CONC 33.3 g/dl (32.0-36.5); MEAN CORPUSCULAR VOLUME 90.5 fl (80.0-96.0); MONO # 0.8 10^3/uL (0.0-0.8); MONO % 5.1 % (0.0-5.0); NEUTROPHILS # 9.8 10^3/uL (1.8-7.7); NEUTROPHILS % 63.7 % (36.0-66.0); PLATELET COUNT, AUTOMATED 308 10^3/uL (150-450); RED BLOOD COUNT 4.52 10^6/uL (4.00-5.40); WHITE BLOOD COUNT 15.4 10^3/uL (4.0-10.0)
[2018-07-01 12:38] LABS: HEMOGLOBIN A1c 5.5 %
[2018-07-01 12:51] LABS: ALBUMIN 3.7 GM/DL (3.2-5.2); BILIRUBIN,TOTAL 0.3 MG/DL (0.2-1.0); CALCIUM LEVEL 9.1 MG/DL (8.5-10.1); CHOLESTEROL RISK RATIO 3.098 (<5); CREATININE FOR GFR 1.23 MG/DL (0.55-1.30); GLOMERULAR FILTRATION RATE 51.5 (>58); POTASSIUM SERUM 3.7 MEQ/L (3.5-5.1); THYROID STIMULATING HORMONE 3.12 uIU/ML (0.358-3.740); TOTAL 25(OH) VITAMIN D 61.4 NG/ML (30.0-100.0); TOTAL PROTEIN 7.2 GM/DL (6.4-8.2)
== END ==
LOC: M LAB 11:41
PROVIDERS: ATTEND Nurse Practitioner Adult Health
DX: E78.00 Pure hypercholesterolemia, unspecified (principal)

== ENCOUNTER → 2018-07-12 | Outpatient (CLI) | payer OTHER ==
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
== END ==
LOC: M PAIN 09:45
PROVIDERS: ATTEND Anesthesiology
DX: M51.17 Intervertebral disc disorders with radiculopathy, lumbosacral region (principal); G89.29 Other chronic pain; M25.511 Pain in right shoulder; I10 Essential (primary) hypertension; J45.909 Unspecified asthma, uncomplicated; M19.90 Unspecified osteoarthritis, unspecified site; G43.909 Migraine, unspecified, not intractable, without status migrainosus; M79.7 Fibromyalgia; F17.210 Nicotine dependence, cigarettes, uncomplicated; E66.01 Morbid (severe) obesity due to excess calories; Z68.41 Body mass index [BMI] 40.0-44.9, adult; Z79.899 Other long term (current) drug therapy; Z88.1 Allergy status to other antibiotic agents; Z88.2 Allergy status to sulfonamides; Z86.59 Personal history of other mental and behavioral disorders

== ENCOUNTER → 2018-08-06 | Outpatient (CLI) | payer OTHER ==
[~2018-08-06] MED LIST changes: +ISOVUE-M 300 61% 15ML VIAL (Q9967) As Ordered ONE; +LIDOCAINE 1% SDV INJ 30 ML VIAL As Ordered ONE; +diazePAM 5 MG TAB As Ordered ONE; +methylPREDNISolone SUSP 40 MG/ML (DEPO-medrol) VIAL (J1030) As Ordered ONE; +oxyCODONE 5MG TAB As Ordered ONE
--- NOTE | 2018-08-06 16:13 | REP ---
C-ARM VIEWS LUMBOSACRAL JUNCTION: CLINICAL HISTORY: Pain. Three C-ARM views of the lumbosacral junction are performed during lumbar epidural injection by Dr. Stratton. Needle was seen at L5-S1 level and contrast was injected. 11 seconds of fluoroscopy time was utilized. Electronically Signed by Mike Rebolledo MD 08/07/2018 09:29 A
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
== END ==
LOC: M PAIN 10:45
PROVIDERS: ATTEND Anesthesiology
DX: G89.29 Other chronic pain (principal); M51.17 Intervertebral disc disorders with radiculopathy, lumbosacral region; I10 Essential (primary) hypertension; J45.909 Unspecified asthma, uncomplicated; G43.909 Migraine, unspecified, not intractable, without status migrainosus; M79.7 Fibromyalgia; F17.210 Nicotine dependence, cigarettes, uncomplicated; E66.01 Morbid (severe) obesity due to excess calories; Z68.41 Body mass index [BMI] 40.0-44.9, adult; Z79.899 Other long term (current) drug therapy; Z88.1 Allergy status to other antibiotic agents; Z88.2 Allergy status to sulfonamides; Z86.59 Personal history of other mental and behavioral disorders; Z86.69 Personal history of other diseases of the nervous system and sense organs
CPT/HCPCS: 62323; J1030; Q9967

== ENCOUNTER → 2018-10-18 | Outpatient (CLI) | payer OTHER, MEDICAID ==
[~2018-10-18] MED LIST changes: -ISOVUE-M 300 61% 15ML VIAL (Q9967) As Ordered ONE; -LIDOCAINE 1% SDV INJ 30 ML VIAL As Ordered ONE; +TRAZ1TAB10 PO; -TRAZO50TA PO; -diazePAM 5 MG TAB As Ordered ONE; -methylPREDNISolone SUSP 40 MG/ML (DEPO-medrol) VIAL (J1030) As Ordered ONE; -oxyCODONE 5MG TAB As Ordered ONE
--- NOTE | 2018-10-18 11:51 | REP ---
Clinical: Cervicalgia Technique: AP and lateral views of the cervical spine. Findings: Alignment and lordosis maintained. Visualized vertebral bodies and disc spaces as well as spinous process and surrounding soft tissues appear normal. Impression: Age-appropriate AP and lateral cervical spine radiographs. Electronically Signed by Pavan Ayers MD 10/18/2018 11:42 A
== END ==
LOC: M WUC 11:02
PROVIDERS: ATTEND Nurse Practitioner Family
DX: M54.2 Cervicalgia (principal)

== ENCOUNTER → 2018-10-30 | Outpatient (CLI) | payer OTHER ==
[~2018-10-30] MED LIST changes: -LISI20TA PO; +LISI20TA18 PO
--- NOTE | 2018-11-06 01:01 | ECWPNPC ---
PATIENT NAME: JUANITA GUARDADO : 1980 GENDER: FEMALE VISIT DATE: 10/30/2018 DISCHARGE DATE: 10/30/18 1642 VISIT LOCKED DATE TIME: PHYSICIAN: LEW MAYORGA MD RESOURCE: LEW MAYORGA MD REASON FOR APPOINTMENT 1. POST PROC HISTORY OF PRESENT ILLNESS HISTORY OF PRESENT ILLNESS: PAIN THE PATIENT DESCRIBES THE PAIN... 38 YEAR OLD FEMALE PATIENT WITH A HISTORY OF CHRONIC LOW BACK AND LEG PAIN. THE PATIENT DESCRIBES THE PAIN ACHING, STABBING, SHOOTING, TENDER, SHARP, DAILY, AND CONTINUOUS WITH A PAIN SCORE OF 6-8/10 DEPENDING ON PHYSICAL ACTIVITY. THE PATIENT STATES HER PAIN BEGINS IN HER LOW BACK AND RADIATES DOWN MAINLY HER LEFT LEG. THE PATIENT RECEIVED A LUMBAR EPIDURAL ON 08/06/2018, WHICH SHE SAYS PROVIDED HER WITH GOOD PAIN RELIEF, HOWEVER THE PAIN IS NOW RETURNING. PATIENT DENIES UNEXPLAINABLE WEIGHT LOSS, FEVER, CHILLS, NEW CHANGES ON HER URINARY OR BOWEL CONTROL. FALL RISK SCREENING: SCREENING :NO FALLS REPORTED IN THE LAST YEAR CURRENT MEDICATIONS TAKING TRAZODONE HCL 100 MG TABLET 2 TABLET AT BEDTIME ORALLY ONCE A DAY TAKING TOPAMAX 200 MG TABLET 1 TABLET ORALLY BEFORE BEDTIME TAKING GABAPENTIN 800 MG TABLET 1 TABLET ORALLY THREE TIMES DAILY TAKING DULOXETINE HCL 60 MG CAPSULE DELAYED RELEASE PARTICLES 1 CAPSULE ORALLY BID TAKING TIZANIDINE HCL 4 MG TABLET 1 TABLET NEEDED ORALLY BID TAKING LISINOPRIL-HYDROCHLOROTHIAZIDE 20-12.5 MG TABLET 2 TABLETS ORALLY ONCE A DAY TAKING MIRENA IUD TAKING HYDROXYZINE HCL 25 MG TABLET 1 TABLET NEEDED ORALLY EVERY 8 HRS TAKING ATORVASTATIN CALCIUM 10 MG TABLET 1 TABLET ORALLY ONCE A DAY TAKING VITAMIN D 68226 UNIT CAPSULE 1 CAPSULE ORALLY MONTHLY TAKING MAGNESIUM 250 MG TABLET 1 TABLET WITH A MEAL ORALLY ONCE A DAY NOT-TAKING MOBIC 15 MG TABLET 1 TABLET ORALLY WITH FOOD ONCE A DAY FOR PAIN MEDICATION LIST REVIEWED AND RECONCILED WITH THE PATIENT PAST MEDICAL HISTORY SYNCOPE HTN ASTHSMA WHOLE BODY ARTHRITIS PTSD NECK AND BACK PAIN CARPAL TUNNEL RIGHT CHRONIC PAIN DEPRESSION AND ANXIETY MIGRAINES FIBROMYALGIA ALLERGIES AMOXICILLIN: RASH - ALLERGY SULFA (FOR ALLERGY USE ONLY): RASH - ALLERGY SURGICAL HISTORY GALL BLADDER REMOVAL 03/2008 BICEP REPAIR LEFT 02/28 CARPAL TUNNEL RIGHT WRIST 10/2017 FAMILY HISTORY FATHER: ALIVE 56 YRS, DIAGNOSED WITH HYPERTENSION MOTHER: ALIVE 57 YRS, OTHER 1 BROTHER(S) , 2 SISTER(S) - HEALTHY. 1 SON(S) , 1 DAUGHTER(S) . MOM-DEPRESSION, BACK PROBLEMS\\\\NDAUSUNSHINE HAS CELIAC AND , ENVIRONMENTAL [id number]\\\\\\\\\\\\NSON HAS ASTHMA, ENVIRONMENTAL ALLERGIES 11\\\\. SOCIAL HISTORY GENERAL: TOBACCO USE ARE YOU A:CURRENT SMOKER ARE YOU INTERESTED IN QUITTING?THINKING ABOUT QUITTING PREVIOUS QUIT ATTEMPTS?YES, WITHIN THE LAST 6 MONTHS. COUNSELED THE PATIENT ON SMOKING CESSATION, EDUCATION [id number]/14/2019 HOW MANY CIGARETTES A DAY DO YOU SMOKE?5 OR LESS HOW SOON AFTER YOU WAKE UP DO YOU SMOKE YOUR FIRST CIGARETTE?AFTER 60 MIN HOW OFTEN DO YOU SMOKE CIGARETTES?SOME DAYS, BUT NOT EVERY DAY PATIENT COUNSELED ON THE DANGERS OF TOBACCO USE AND URGED TO QUIT:10/30/2018 OTHERS AT HOME: OTHER NON-RELATIVE, CHILDREN. HOUSING: RENTS APARTMENT. EDUCATION LEVEL OF EDUCATION:NOT FINISHED COLLEGE DIET: UNEMPLOYED. LANGUAGE LANGUAGES SPOKEN:CONGOLESE DOMESTIC VIOLENCE DO YOU FEEL SAFE IN YOUR ENVIRONMENT?YES RECREATIONAL DRUG USE DRUG USE?NO EXERCISE: NONE. LEARNING BARRIERS / SPECIAL NEEDS BARRIERS TO LEARNING?NO HEARING IMPAIRED?NO VISION IMPAIRED?YES :CORRECTIVE LENSES COGNITIVELY IMPAIRED?NO READINESS TO LEARN?YES LEARNING PREFERENCES?YES :DEMONSTRATION/VERBAL INSTRUCTION LEARNING CAPABILITIES PRESENT?YES EMOTIONAL BARRIERS?YES COMMENTS DEPRESSION AND ANXIETY SPECIAL DEVICES?NO WIRE PREPARATION MACHINE TENDER NEEDED?NO PAIN CLINIC PFS, CLERGY, PUBLIC HEALTH REFERRALS PFS REFERRAL NEEDED?NO CLERGY REFERRAL NEEDED?NO PUBLIC HEALTH REFERRAL NEEDED?NO WAS THE PROVIDER NOTIFIED OF ANY PERTINENT INFO? N/A HAS THE PATIENT BEEN EDUCATED REGARDING HIS/HER PLAN OF CARE?YES HAS THE PATIENT BEEN EDUCATED REGARDING PAIN, THE RISK FOR PAIN, THE IMPORTANCE OF EFFECTIVE PAIN MANAGEMENT, AND THE PAIN ASSESSMENT PROCESS?YES LATEX QUESTIONNAIRE LATEX ALLERGY : HAVE YOU EVER DEVELOPED ANY TYPE OF REACTION AFTER HANDLING LATEX PRODUCTS SUCH RUBBER GLOVES, CONDOMS, DIAPHRAGMS, BALLOONS, SOCKS, OR UNDERWEAR?NO LATEX ALLERGY : HAVE YOU EVER DEVELOPED ANY TYPE OF REACTION DURING OR AFTER DENTAL APPOINTMENT, VAGINAL/RECTAL EXAMINATION, SURGICAL PROCEDURE, OR ANY OTHER EXPOSURE?NO LATEX RISK : HAVE YOU EVER HAD ANY DIFFICULTY BREATHING OR HIVES AFTER EATING OR HANDLING ANY FRUITS, OR VEGETABLES; SUCH KIWI, BANANAS, STONE FRUITS, OR CHESTNUTSNO LATEX RISK : DO YOU HAVE A PREVIOUS PERSONAL HISTORY OF MORE THAN NINE SURGERIES, SPINA BIFIDA, OR REPEATED CATHERIZATIONS? NO LATEX RISK : ARE YOU FREQUENTLY EXPOSED TO LATEX PRODUCTS IN YOUR OCCUPATION?NO DATE ASKED : 10/30/2018 CAFFEINE CAFFEINE USE?YES OCCASIONALLY ADVANCE DIRECTIVE ADVANCE DIRECTIVE DISCUSSED WITH PATIENT:YES HCP ASAD ALEJANDRA [phone] MOM ORTHODOX [id number] NONE MARITAL STATUS: .. ALCOHOL SCREENING DID YOU HAVE A DRINK CONTAINING ALCOHOL IN THE PAST YEAR?YES HOW OFTEN DID YOU HAVE A DRINK CONTAINING ALCOHOL IN THE PAST YEAR?MONTHLY OR LESS (1 POINT) HOW MANY DRINKS DID YOU HAVE ON A TYPICAL DAY WHEN YOU WERE DRINKING IN THE PAST YEAR?1 OR 2 (0 POINTS) HOW OFTEN DID YOU HAVE SIX OR MORE DRINKS ON ONE OCCASION IN THE PAST YEAR?NEVER (0 POINTS) POINTS1 INTERPRETATIONNEGATIVE 03/07/18 REVIEWED WITH PT. ADREVIEWED WITH PT 04/12/18 1512 BVREVIEWED WITH PATIENT 05/17/18 1034 JS 10/30/18 REVIEWED WITH PT. AD. HOSPITALIZATION/MAJOR DIAGNOSTIC PROCEDURE SURGERY RELATED CHILDBIRTH COMPLICATIONS WHEN HERE TO HAVE CARPAL TUNNEL--DID NOT HAVE SURGERY 07/11/2017 [facility] 12/2017 REVIEW OF SYSTEMS REVIEWED BY: PROVIDER: LEW MAYORGA MD . CONSTITUTIONAL: ANY CHANGE IN YOUR MEDICAL CONDITION? NO . CHILLS NO . FEVER NO . INFECTION: DO YOU HAVE NEW INFECTIONS? NO . DO YOU HAVE HISTORY OF MRSA? NO . MUSCULOSKELETAL: ANY NEW PATTERNS OF PAIN OR NUMBNESS? NO . GASTROENTEROLOGY: ANY NEW CHANGE IN BOWEL CONTROL? NO . GENITOURINARY: ANY NEW CHANGE IN BLADDER CONTROL? NO . IS THERE A CHANCE YOU COULD BE ? NO . HEMATOLOGY/LYMPH: DO YOU TAKE ANY BLOOD THINNERS? (FOR EXAMPLE- COUMADIN, PLAVIX, AGGRENOX, PLATEL, PRADAXA, OR XARELTO) NO . WHEN WAS YOUR LAST DOSE? DATE: TIME: . NEUROLOGY: HAVE YOU FALLEN IN THE PAST 12 MONTHS? NO . ANY NEW EXTREMITY NUMBNESS OR WEAKNESS? NO . CARDIOLOGY: DO YOU HAVE A PACEMAKER OR DEFIBRILLATOR? NO . RESPIRATORY: HAVE YOU BEEN SICK IN THE PAST WEEK? NO . FEVER NO . FLU LIKE SYMPTOMS? NO . COUGH NO . INTEGUMENTARY: DO YOU HAVE ANY RASHES OR OPEN SORES? YES, FACE HAS BEEN BROKEN OUT AND SCABS ON ARMS FROM PICKING AT BUG BITES. . ALLERGIC/IMMUNO: ARE YOU ALLERGIC TO IV DYE? NO . ANY NEW ALLERGIES? NO . PSYCHIATRIC: DO YOU HAVE THOUGHTS OF HURTING YOURSELF OR SOMEONE ELSE? NO . ARE YOU ABUSED, NEGLECTED, OR IN AN UNSAFE ENVIRONMENT? NO . ENDOCRINOLOGY: ARE YOU DIABETIC? NO . OTHER: DO YOU NEED ANY PRESCRIPTIONS? YES . IF YES, PLEASE LIST: MOBIC . ANY NEW PROBLEMS WITH YOUR MEDICATIONS? NO . WHEN DID YOU LAST EAT? ____ . WHEN DID YOU LAST DRINK? ____ . WHAT DID YOU LAST DRINK? ____ . NAME OF PERSON DRIVING YOU HOME? ____ . DO YOU HAVE ANY OTHER QUESTIONS OR CONCERNS YES "MY HANDS AND FEET HAVE BEEN SWOLLEN FOR A FEW DAYS" . VITAL SIGNS WT 250.8 LBS, HT 63 IN, BMI 44.42 INDEX, BP 125/78 MM HG, HR 89 /MIN, RR 18 /MIN, TEMP 96.0 F, OXYGEN SAT % 97%, SAFE IN ENV? (Y/N) Y, NA INITIALS AW 1502, REVIEWED BY: EMILY. EXAMINATION GENERAL EXAMINATION: PATIENT IS ALERT O X 3 AND COOPERATIVE. TENDERNESS IN THE LOW BACK, ESPECIALLY ON THE LEFT SIDE. LEFT LEG IS WEAKER AT EXTENSION AND FLEXION. STRAIGHT LEG RAISE OF THE LEFT LEG IS POSITIVE AT 50 DEGREES FOR RADICULOPATHY. MRI OF THE LUMBAR SPINE DONE ON 06/03/2017 SHOWS A DISC PROTRUSION AT L5-S1 LEVEL. ASSESSMENTS INTERVERTEBRAL DISC DISORDER WITH RADICULOPATHY OF LUMBOSACRAL REGION - M51.17 (PRIMARY) TREATMENT INTERVERTEBRAL DISC DISORDER WITH RADICULOPATHY OF LUMBOSACRAL REGION CLINICAL NOTES: WE DISCUSSED SEVERAL ISSUES WITH MS. GUARDADO'S PAIN MANAGEMENT CASE. DUE TO THE LUMBAR RADICULOPATHY, I WOULD LIKE TO MOVE FORWARD WITH A LUMBAR EPIDURAL STEROID INJECTION AT THIS TIME. WE DISCUSSED THE BENEFITS, RISKS, AND ALTERNATIVES OF THE INJECTION AND THE PATIENT WOULD LIKE TO PROCEED. I AM REFERRING THE PATIENT TO [facility] IN [place], TO DISCUSS NEUROSURGERY OPTIONS. I REFILLED THE PATIENT'S MOBIC 15 MG AT TODAY'S VISIT. THE PATIENT WILL FOLLOW UP IN SEVERAL WEEKS AFTER THE INJECTION. INSTRUCTIONS WERE GIVEN, QUESTIONS WERE ANSWERED, PATIENT REPORTS UNDERSTANDING AND AGREES WITH THE PLAN. I, RAFAEL SEE, DOCUMENTED THE ABOVE INFORMATION ACTING A SCRIBE FOR DR. MAYORGA. I HAVE REVIEWED THE ABOVE DOCUMENT, WRITTEN BY RAFAEL MELTON AND I VERIFY THAT IT IS ACCURATE. . OTHERS REFILL MOBIC TABLET, 15 MG, 1 TABLET, ORALLY WITH FOOD, ONCE A DAY FOR PAIN, 30 DAY(S), 30, REFILLS 1 NOTES: LUMBAR EPIDURAL STEROID INJECTION MATERIAL WAS PUBLISHED TO [employer]. PREVENTIVE MEDICINE PAIN CLINIC TEACHING: PROCEDURE TEACHING PRINTED INFORMATION ON LUMBAR EPIDURAL STEROID INJECTION GIVEN TO AND REVIEWED WITH PT. ALONG WITH PRINTED PRE-PROCEDURE INSTUCTIONS AND PT VERBALIZED UNDERSTANDING. AD. PROCEDURE CODES FA211 ESTABILISHED PATIENT [facility] CHARGE [id number] CURRENT MEDS W/DOSAGES DOCUMENTED G8730 PAIN ASSESS POS TOOL F/U PLAN DOC DISPOSITION & COMMUNICATION FOLLOW UP 3 WEEKS (REASON: LESI) ELECTRONICALLY SIGNED BY LEW MAYORGA MD, ON 11/05/2018 AT 02:01 PM EDT DISCLAIMER : THIS IS A VISIT SUMMARY EXTRACTED FROM THE [employer] CHART. IT IS NOT A COPY OF THE [employer] PROGRESS NOTE. JOSE R
== END ==
LOC: M PAIN 14:30
PROVIDERS: ATTEND Anesthesiology
DX: M51.17 Intervertebral disc disorders with radiculopathy, lumbosacral region (principal); G89.29 Other chronic pain; I10 Essential (primary) hypertension; J45.909 Unspecified asthma, uncomplicated; Z86.59 Personal history of other mental and behavioral disorders; G43.909 Migraine, unspecified, not intractable, without status migrainosus; M79.7 Fibromyalgia; F17.210 Nicotine dependence, cigarettes, uncomplicated; Z88.1 Allergy status to other antibiotic agents; Z88.2 Allergy status to sulfonamides; E66.01 Morbid (severe) obesity due to excess calories; Z68.41 Body mass index [BMI] 40.0-44.9, adult; Z79.899 Other long term (current) drug therapy

== ENCOUNTER → 2018-11-03 | Outpatient (CLI) | payer OTHER ==
[2018-11-03 12:12] LABS: BASO % 0.2 % (0.0-1.0); EOS # 0.4 10^3/uL (0.0-0.50); EOS % 2.4 % (0.0-3.0); HEMATOCRIT 39.5 % (36.0-47.0); HEMOGLOBIN 13.2 g/dl (12.0-15.5); LYMPH % 24.8 % (24.0-44.0); MEAN CORPUSCULAR HEMOGLOBIN 30.6 pg (27.0-33.0); MEAN CORPUSCULAR HGB CONC 33.4 g/dl (32.0-36.5); MEAN CORPUSCULAR VOLUME 91.6 fl (80.0-96.0); MONO # 0.9 10^3/uL (0.0-0.8); MONO % 5.4 % (0.0-5.0); NEUTROPHILS # 10.6 10^3/uL (1.8-7.7); NEUTROPHILS % 65.7 % (36.0-66.0); PLATELET COUNT, AUTOMATED 272 10^3/uL (150-450); RED BLOOD COUNT 4.31 10^6/uL (4.00-5.40)
[2018-11-03 12:30] LABS: HEMOGLOBIN A1c 6.2 %
[2018-11-03 12:52] LABS: ALBUMIN 3.2 GM/DL (3.2-5.2); ALT/SGPT 41 U/L (12-78); BILIRUBIN,TOTAL 0.2 MG/DL (0.2-1.0); BLOOD UREA NITROGEN 12 MG/DL (7-18); CALCIUM LEVEL 9.2 MG/DL (8.5-10.1); CARBON DIOXIDE LEVEL 26 MEQ/L (21-32); CHLORIDE LEVEL 110 MEQ/L (98-107); CHOLESTEROL LEVEL 163 MG/DL (<200); CHOLESTEROL RISK RATIO 3.543 (<5); CREATININE FOR GFR 1.05 MG/DL (0.55-1.30); GLOMERULAR FILTRATION RATE > 60.0 (>58); GLUCOSE, FASTING 100 MG/DL (70-100); HDL CHOLESTEROL 46 MG/DL (>40); LDL CHOLESTEROL 88 MG/DL (<100); NON-HDL-C 117 MG/DL; SODIUM LEVEL 141 MEQ/L (136-145); TOTAL PROTEIN 6.7 GM/DL (6.4-8.2); TRIGLYCERIDES LEVEL 147 MG/DL (<150)
[2018-11-04 11:33] LABS: TOTAL 25(OH) VITAMIN D 30.8 NG/ML (30.0-100.0)
== END ==
LOC: M LAB 11:45
PROVIDERS: ATTEND Nurse Practitioner Adult Health
DX: Z51.81 Encounter for therapeutic drug level monitoring (principal); Z79.899 Other long term (current) drug therapy; E78.00 Pure hypercholesterolemia, unspecified; D64.9 Anemia, unspecified; E55.9 Vitamin D deficiency, unspecified

== ENCOUNTER → 2018-11-21 | Outpatient (CLI) | payer OTHER ==
[~2018-11-21] MED LIST changes: +ISOVUE-M 300 61% 15ML VIAL (Q9967) As Ordered ONE; +LIDOCAINE 1% SDV INJ 30 ML VIAL As Ordered ONE; -LISI20TA18 PO; +LISI20TA19 PO; +diazePAM 5 MG TAB As Ordered ONE; +methylPREDNISolone SUSP 40 MG/ML (DEPO-medrol) VIAL (J1030) As Ordered ONE; +oxyCODONE 5MG TAB As Ordered ONE
--- NOTE | 2018-11-21 12:24 | REP ---
Partial lumbar spine series: Three views . History: Injection procedure for pain. 10 seconds of fluoroscopy time is reported. Findings: A sequence of three fluoroscopically obtained last image hold procedural spot radiographs of the lumbar spine document needle position and contrast injection associated with injection procedure. Electronically Signed by Ronni Rowley MD 11/21/2018 12:16 P
--- NOTE | 2018-12-04 00:43 | ECWPNPC ---
PATIENT NAME: JUANITA GUARDADO : 1980 GENDER: FEMALE VISIT DATE: 11/21/2018 DISCHARGE DATE: 11/21/18 1207 VISIT LOCKED DATE TIME: PHYSICIAN: LEW MAYORGA MD RESOURCE: LEW MAYORGA MD REASON FOR APPOINTMENT 1. LESI HISTORY OF PRESENT ILLNESS HISTORY OF PRESENT ILLNESS: PAIN THE PATIENT DESCRIBES THE PAIN... FALL RISK SCREENING: SCREENING :NO FALLS REPORTED IN THE LAST YEAR CURRENT MEDICATIONS TAKING MOBIC 15 MG TABLET 1 TABLET ORALLY WITH FOOD ONCE A DAY FOR PAIN TAKING TRAZODONE HCL 100 MG TABLET 2 TABLET AT BEDTIME ORALLY ONCE A DAY TAKING TOPAMAX 200 MG TABLET 1 TABLET ORALLY BEFORE BEDTIME TAKING GABAPENTIN 800 MG TABLET 1 TABLET ORALLY THREE TIMES DAILY TAKING DULOXETINE HCL 60 MG CAPSULE DELAYED RELEASE PARTICLES 1 CAPSULE ORALLY BID TAKING TIZANIDINE HCL 4 MG TABLET 1 TABLET NEEDED ORALLY BID TAKING LISINOPRIL-HYDROCHLOROTHIAZIDE 20-12.5 MG TABLET 2 TABLETS ORALLY ONCE A DAY TAKING MIRENA IUD TAKING HYDROXYZINE HCL 25 MG TABLET 1 TABLET NEEDED ORALLY EVERY 8 HRS TAKING ATORVASTATIN CALCIUM 10 MG TABLET 1 TABLET ORALLY ONCE A DAY TAKING VITAMIN D 74415 UNIT CAPSULE 1 CAPSULE ORALLY EVERY 2 WEEKS TAKING MAGNESIUM 250 MG TABLET 1 TABLET WITH A MEAL ORALLY ONCE A DAY MEDICATION LIST REVIEWED AND RECONCILED WITH THE PATIENT PAST MEDICAL HISTORY SYNCOPE HTN ASTHSMA WHOLE BODY ARTHRITIS PTSD NECK AND BACK PAIN CARPAL TUNNEL RIGHT CHRONIC PAIN DEPRESSION AND ANXIETY MIGRAINES FIBROMYALGIA BORDERLINE DIABETIC ALLERGIES AMOXICILLIN: RASH - ALLERGY SULFA (FOR ALLERGY USE ONLY): RASH - ALLERGY SURGICAL HISTORY GALL BLADDER REMOVAL 03/2008 BICEP REPAIR LEFT 02/28 CARPAL TUNNEL RIGHT WRIST 10/2017 FAMILY HISTORY FATHER: ALIVE 56 YRS, DIAGNOSED WITH HYPERTENSION MOTHER: ALIVE 57 YRS, OTHER SPECIFIED CONDITIONS INFLUENCING HEALTH STATUS 1 BROTHER(S) , 2 SISTER(S) - HEALTHY. 1 SON(S) , 1 DAUGHTER(S) . MOM-DEPRESSION, BACK PROBLEMS\\NDAUGHTER HAS CELIAC AND , ENVIRONMENTAL [id number]\\\\NSON HAS ASTHMA, ENVIRONMENTAL ALLERGIES 11\\. SOCIAL HISTORY GENERAL: TOBACCO USE ARE YOU A:CURRENT SMOKER ARE YOU INTERESTED IN QUITTING?THINKING ABOUT QUITTING PREVIOUS QUIT ATTEMPTS?YES, WITHIN THE LAST 6 MONTHS. COUNSELED THE PATIENT ON SMOKING CESSATION, EDUCATION [id number]/05/2019 HOW MANY CIGARETTES A DAY DO YOU SMOKE?5 OR LESS HOW SOON AFTER YOU WAKE UP DO YOU SMOKE YOUR FIRST CIGARETTE?AFTER 60 MIN HOW OFTEN DO YOU SMOKE CIGARETTES?SOME DAYS, BUT NOT EVERY DAY PATIENT COUNSELED ON THE DANGERS OF TOBACCO USE AND URGED TO QUIT:11/21/2018 OTHERS AT HOME: OTHER NON-RELATIVE, CHILDREN. HOUSING: RENTS APARTMENT. EDUCATION LEVEL OF EDUCATION:NOT FINISHED COLLEGE DIET: UNEMPLOYED. LANGUAGE LANGUAGES SPOKEN:BENGALI DOMESTIC VIOLENCE DO YOU FEEL SAFE IN YOUR ENVIRONMENT?YES RECREATIONAL DRUG USE DRUG USE?NO EXERCISE: NONE. LEARNING BARRIERS / SPECIAL NEEDS BARRIERS TO LEARNING?NO HEARING IMPAIRED?NO VISION IMPAIRED?YES :CORRECTIVE LENSES COGNITIVELY IMPAIRED?NO READINESS TO LEARN?YES LEARNING PREFERENCES?YES :DEMONSTRATION/VERBAL INSTRUCTION LEARNING CAPABILITIES PRESENT?YES EMOTIONAL BARRIERS?YES COMMENTS DEPRESSION AND ANXIETY SPECIAL DEVICES?NO GRAPE CRUSHER NEEDED?NO PAIN CLINIC PFS, CLERGY, PUBLIC HEALTH REFERRALS PFS REFERRAL NEEDED?NO CLERGY REFERRAL NEEDED?NO PUBLIC HEALTH REFERRAL NEEDED?NO WAS THE PROVIDER NOTIFIED OF ANY PERTINENT INFO? N/A HAS THE PATIENT BEEN EDUCATED REGARDING HIS/HER PLAN OF CARE?YES HAS THE PATIENT BEEN EDUCATED REGARDING PAIN, THE RISK FOR PAIN, THE IMPORTANCE OF EFFECTIVE PAIN MANAGEMENT, AND THE PAIN ASSESSMENT PROCESS?YES LATEX QUESTIONNAIRE LATEX ALLERGY : HAVE YOU EVER DEVELOPED ANY TYPE OF REACTION AFTER HANDLING LATEX PRODUCTS SUCH RUBBER GLOVES, CONDOMS, DIAPHRAGMS, BALLOONS, SOCKS, OR UNDERWEAR?NO LATEX ALLERGY : HAVE YOU EVER DEVELOPED ANY TYPE OF REACTION DURING OR AFTER DENTAL APPOINTMENT, VAGINAL/RECTAL EXAMINATION, SURGICAL PROCEDURE, OR ANY OTHER EXPOSURE?NO LATEX RISK : HAVE YOU EVER HAD ANY DIFFICULTY BREATHING OR HIVES AFTER EATING OR HANDLING ANY FRUITS, OR VEGETABLES; SUCH KIWI, BANANAS, STONE FRUITS, OR CHESTNUTSNO LATEX RISK : DO YOU HAVE A PREVIOUS PERSONAL HISTORY OF MORE THAN NINE SURGERIES, SPINA BIFIDA, OR REPEATED CATHERIZATIONS? NO LATEX RISK : ARE YOU FREQUENTLY EXPOSED TO LATEX PRODUCTS IN YOUR OCCUPATION?NO DATE ASKED : 11/21/2018 CAFFEINE CAFFEINE USE?YES OCCASIONALLY ADVANCE DIRECTIVE ADVANCE DIRECTIVE DISCUSSED WITH PATIENT:YES HCP ASAD ALEJANDRA [phone] MOM RASTAFARI [id number] NONE MARITAL STATUS: .. ALCOHOL SCREENING DID YOU HAVE A DRINK CONTAINING ALCOHOL IN THE PAST YEAR?YES HOW OFTEN DID YOU HAVE SIX OR MORE DRINKS ON ONE OCCASION IN THE PAST YEAR?NEVER (0 POINTS) HOW MANY DRINKS DID YOU HAVE ON A TYPICAL DAY WHEN YOU WERE DRINKING IN THE PAST YEAR?1 OR 2 (0 POINTS) HOW OFTEN DID YOU HAVE A DRINK CONTAINING ALCOHOL IN THE PAST YEAR?MONTHLY OR LESS (1 POINT) POINTS1 INTERPRETATIONNEGATIVE 03/07/18 REVIEWED WITH PT. ADREVIEWED WITH PT 04/12/18 1512 BVREVIEWED WITH PATIENT 05/17/18 1034 JS 10/30/18 REVIEWED WITH PT. AD11/21/18 REVIEWED WITH PT. AD. HOSPITALIZATION/MAJOR DIAGNOSTIC PROCEDURE SURGERY RELATED CHILDBIRTH 2001,2013 COMPLICATIONS WHEN HERE TO HAVE CARPAL TUNNEL--DID NOT HAVE SURGERY 07/11/2017 [facility] 12/2017 REVIEW OF SYSTEMS REVIEWED BY: PROVIDER: . CONSTITUTIONAL: ANY CHANGE IN YOUR MEDICAL CONDITION? NO . CHILLS NO . FEVER NO . INFECTION: DO YOU HAVE NEW INFECTIONS? NO . DO YOU HAVE HISTORY OF MRSA? NO . MUSCULOSKELETAL: ANY NEW PATTERNS OF PAIN OR NUMBNESS? NO . GASTROENTEROLOGY: ANY NEW CHANGE IN BOWEL CONTROL? NO . GENITOURINARY: ANY NEW CHANGE IN BLADDER CONTROL? NO . IS THERE A CHANCE YOU COULD BE ? NO . HEMATOLOGY/LYMPH: DO YOU TAKE ANY BLOOD THINNERS? (FOR EXAMPLE- COUMADIN, PLAVIX, AGGRENOX, PLATEL, PRADAXA, OR XARELTO) NO . WHEN WAS YOUR LAST DOSE? DATE: TIME: . NEUROLOGY: HAVE YOU FALLEN IN THE PAST 12 MONTHS? NO . ANY NEW EXTREMITY NUMBNESS OR WEAKNESS? NO . CARDIOLOGY: DO YOU HAVE A PACEMAKER OR DEFIBRILLATOR? NO . RESPIRATORY: HAVE YOU BEEN SICK IN THE PAST WEEK? NO . FEVER NO . FLU LIKE SYMPTOMS? NO . COUGH NO . INTEGUMENTARY: DO YOU HAVE ANY RASHES OR OPEN SORES? NO . ALLERGIC/IMMUNO: ARE YOU ALLERGIC TO IV DYE? NO . ANY NEW ALLERGIES? NO . PSYCHIATRIC: DO YOU HAVE THOUGHTS OF HURTING YOURSELF OR SOMEONE ELSE? NO . ARE YOU ABUSED, NEGLECTED, OR IN AN UNSAFE ENVIRONMENT? NO . ENDOCRINOLOGY: ARE YOU DIABETIC? BORDERLINE . OTHER: DO YOU NEED ANY PRESCRIPTIONS? NO . IF YES, PLEASE LIST: ____ . ANY NEW PROBLEMS WITH YOUR MEDICATIONS? NO . WHEN DID YOU LAST EAT? 11/20 1800 . WHEN DID YOU LAST DRINK? 11/21 0830 . WHAT DID YOU LAST DRINK? WATER . NAME OF PERSON DRIVING YOU HOME? [employer] . DO YOU HAVE ANY OTHER QUESTIONS OR CONCERNS NO PT HAS NOT HAD ANY VACCINES IN THE PAST 30 DAYS . VITAL SIGNS WT 249.0 LBS, HT 63 IN, BMI 44.10 INDEX, BP 120/71 MM HG, HR 80 /MIN, RR 18 /MIN, TEMP 98.0 F, OXYGEN SAT % 97%, SAFE IN ENV? (Y/N) Y, NA INITIALS AW 1045, REVIEWED BY: AD. ASSESSMENTS INTERVERTEBRAL DISC DISORDER WITH RADICULOPATHY OF LUMBOSACRAL REGION - M51.17 (PRIMARY) TREATMENT INTERVERTEBRAL DISC DISORDER WITH RADICULOPATHY OF LUMBOSACRAL REGION [facility] FLUORO GUIDE SPINE INJECTION (PAIN)[id number] PROCEDURES PRE PROCEDURE DIAGNOSIS LUMBOSACRAL DISC DISORDER WITH RADICULOPATHY POST PROCEDURE DIAGNOSIS LUMBOSACRAL DISC DISORDER WITH RADICULOPATHY PROCEDURE LUMBAR EPIDURAL STEROID INJECTION UNDER FLUOROSCOPIC GUIDANCE SURGEON DR. LEW MAYORGA FREIGHT AIR BRAKE FITTER NONE ANESTHESIA LOCAL PRE PROCEDURE NOTE THE PATIENT HAS A HISTORY OF CHRONIC LOW BACK PAIN. I EVALUATED THE PATIENT AND REVIEWED THE CHART. I WENT OVER THE RISKS, ALTERNATIVES, AND BENEFITS ASSOCIATED WITH THIS PROCEDURE. THE PATIENT WOULD LIKE TO PROCEED AND GIVES CONSENT TO PERFORM THE PROCEDURE. THE PATIENT DENIES UNEXPLAINABLE WEIGHT LOSS, FEVER, CHILLS, OR NEW CHANGES IN URINARY OR BOWEL CONTROL. DESCRIPTION OF PROCEDURE THE PATIENT WAS BROUGHT TO THE PROCEDURE ROOM AND PLACED IN THE PRONE POSITION. THE LUMBOSACRAL AREA WAS CLEANED WITH BETADINE SOLUTION AND DRAPED ASEPTICALLY. THE PROCEDURE WAS DONE UNDER STERILE CONDITIONS. I CHECKED LATERALITY AND THE LEVEL WHERE THE PROCEDURE WAS GOING TO BE PERFORMED WITH THE PATIENT AND THE SUPPORTING STAFF AT THE MOMENT OF THE TIME OUT IN THE PROCEDURE ROOM. UNDER FLUOROSCOPIC GUIDANCE, THE TARGET POINT WAS SELECTED AT THE INTERLAMINAR LEVEL OF L5-S1. LIDOCAINE WAS USED TO NUMB THE SKIN AND THE SUBCUTANEOUS TISSUE BELOW IT. EPIDURAL TUOHY NEEDLE, 17-GAUGE, WAS ADVANCED UNDER FLUOROSCOPIC GUIDANCE AND FOLLOWING PATIENT FEEDBACK UNTIL THE EPIDURAL SPACE WAS REACHED, 7 CM DEEP INTO THE SKIN BY THE LOSS OF RESISTANCE TECHNIQUE. ISOVUE M DYE 30%, 0.25 ML, WAS INJECTED SHOWING ADEQUATE SPREAD OF THE DYE. THEN, A SOLUTION OF 3 ML OF NORMAL SALINE WITH DEPO-MEDROL 60 MG WAS INJECTED SLOWLY FOLLOWING PATIENT FEEDBACK. THERE WAS NO EVIDENCE OF BLOOD, PARESTHESIA OR CEREBROSPINAL FLUID DURING THE PROCEDURE. THE PATIENT WAS SENT TO THE RECOVERY ROOM. THE PATIENT WAS MOVING THE EXTREMITIES AND DOING WELL. THERE WAS NO COMPLICATION DURING THE PROCEDURE. FLUOROSCOPY TIME WAS 10 SECONDS. POST PROCEDURE NOTE THE PATIENT WILL BE SEEN IN A FOLLOW UP IN THE NEXT FEW WEEKS. INSTRUCTIONS WERE GIVEN, QUESTIONS WERE ANSWERED, AND THE PATIENT EXPRESSED UNDERSTANDING AND AGREES WITH THE PLAN. I, RAFAEL SEE, DOCUMENTED THE ABOVE INFORMATION ACTING A SCRIBE FOR DR. MAYORGA. I HAVE REVIEWED THE ABOVE DOCUMENT, WRITTEN BY RAFAEL SEE SCRIBE AND I VERIFY THAT IT IS ACCURATE. PROCEDURE CODES 29630 LUMBAR/SACRAL W/ IMAGING 6045F RADXPS IN END [id number] PXD DISPOSITION & COMMUNICATION FOLLOW UP 2 WEEKS ELECTRONICALLY SIGNED BY LEW MAYORGA MD, MD ON 12/03/2018 AT 10:49 AM EDT DISCLAIMER : THIS IS A VISIT SUMMARY EXTRACTED FROM THE [employer] CHART. IT IS NOT A COPY OF THE [employer] PROGRESS NOTE. MTDD
== END ==
LOC: M PAIN 10:30
PROVIDERS: ATTEND Anesthesiology
DX: M51.17 Intervertebral disc disorders with radiculopathy, lumbosacral region (principal); I10 Essential (primary) hypertension; J45.909 Unspecified asthma, uncomplicated; M15.0 Primary generalized (osteo)arthritis; G89.29 Other chronic pain; F32.9 Major depressive disorder, single episode, unspecified; F41.9 Anxiety disorder, unspecified; G43.909 Migraine, unspecified, not intractable, without status migrainosus; M79.7 Fibromyalgia; R73.03 Prediabetes; F17.210 Nicotine dependence, cigarettes, uncomplicated; Z79.1 Long term (current) use of non-steroidal anti-inflammatories (NSAID); Z79.899 Other long term (current) drug therapy; Z88.0 Allergy status to penicillin; Z88.2 Allergy status to sulfonamides
CPT/HCPCS: 62323; J1030; Q9967

== ENCOUNTER 2018-12-25 10:06 | Emergency (ER) | payer MEDICAID, OTHER ==
[~2018-12-25] VITALS: Ht 160 cm; Wt 108.6 kg
[2018-12-25 10:06] VITALS: BP 123/67
[~2018-12-25 10:06] MED LIST changes: -ISOVUE-M 300 61% 15ML VIAL (Q9967) As Ordered ONE; -LIDOCAINE 1% SDV INJ 30 ML VIAL As Ordered ONE; -diazePAM 5 MG TAB As Ordered ONE; -methylPREDNISolone SUSP 40 MG/ML (DEPO-medrol) VIAL (J1030) As Ordered ONE; -oxyCODONE 5MG TAB As Ordered ONE
[2018-12-25] MEDS ORDERED: methylPREDNISolone INJ 125 MG/2 ML VIAL (J2930) IM ONE (10:30)
[2018-12-25] MEDS ORDERED: PRED20TA PO (10:56)
== END 2018-12-25 11:05 | disposition home or self-care (01) ==
LOC: M ED 10:06
DX: G89.29 Other chronic pain (principal); M54.9 Dorsalgia, unspecified; I10 Essential (primary) hypertension; J45.909 Unspecified asthma, uncomplicated; F41.9 Anxiety disorder, unspecified; F17.200 Nicotine dependence, unspecified, uncomplicated; Z79.899 Other long term (current) drug therapy; Z88.0 Allergy status to penicillin; Z88.2 Allergy status to sulfonamides
CPT/HCPCS: 99283; J2930

== ENCOUNTER → 2018-12-27 | Outpatient (CLI) | payer OTHER ==
[~2018-12-27] MED LIST changes: +PRED20TA PO
== END ==
LOC: M PAIN 14:00
PROVIDERS: ATTEND Family Medicine
DX: M51.16 Intervertebral disc disorders with radiculopathy, lumbar region (principal); I10 Essential (primary) hypertension; J45.909 Unspecified asthma, uncomplicated; Z86.59 Personal history of other mental and behavioral disorders; G43.909 Migraine, unspecified, not intractable, without status migrainosus; M79.7 Fibromyalgia; F17.210 Nicotine dependence, cigarettes, uncomplicated; Z88.1 Allergy status to other antibiotic agents; Z88.2 Allergy status to sulfonamides; E66.01 Morbid (severe) obesity due to excess calories; Z68.41 Body mass index [BMI] 40.0-44.9, adult; Z79.899 Other long term (current) drug therapy

== ENCOUNTER → 2019-02-03 | Outpatient (CLI) | payer OTHER, MEDICAID ==
[2019-02-03 09:13] LABS: BASO % 0.2 % (0.0-1.0); EOS # 0.3 10^3/uL (0.0-0.5); EOS % 2.5 % (0.0-3.0); HEMATOCRIT 42.4 % (36.0-47.0); HEMOGLOBIN 13.7 g/dl (12.0-15.5); LYMPH # 3.3 10^3/uL (1.5-5.0); LYMPH % 27.9 % (24.0-44.0); MEAN CORPUSCULAR HGB CONC 32.3 g/dl (32.0-36.5); MEAN CORPUSCULAR VOLUME 92.8 fl (80.0-96.0); MONO # 0.8 10^3/uL (0.0-0.8); MONO % 6.5 % (0.0-5.0); NEUTROPHILS # 7.3 10^3/uL (1.5-8.5); NEUTROPHILS % 62.4 % (36.0-66.0); PLATELET COUNT, AUTOMATED 278 10^3/uL (150-450); RED BLOOD COUNT 4.57 10^6/uL (4.00-5.40); WHITE BLOOD COUNT 11.7 10^3/uL (4.0-10.0)
[2019-02-03 09:53] LABS: ALBUMIN 3.6 GM/DL (3.2-5.2); BILIRUBIN,TOTAL 0.5 MG/DL (0.2-1.0); CALCIUM LEVEL 9.2 MG/DL (8.5-10.1); CHOLESTEROL RISK RATIO 4.88 (<5); CREATININE FOR GFR 1.18 MG/DL (0.55-1.30); POTASSIUM SERUM 3.8 MEQ/L (3.5-5.1); THYROID STIMULATING HORMONE 1.73 uIU/ML (0.358-3.740); TOTAL PROTEIN 6.9 GM/DL (6.4-8.2)
[2019-02-03 10:18] LABS: TOTAL 25(OH) VITAMIN D 34.4 NG/ML (30.0-100.0)
[2019-02-03 10:39] LABS: HEMOGLOBIN A1c 6.2 %
== END ==
LOC: M LAB 08:44
PROVIDERS: ATTEND Nurse Practitioner Adult Health
DX: E78.00 Pure hypercholesterolemia, unspecified (principal)

== ENCOUNTER → 2019-02-17 | Outpatient (CLI) | payer OTHER ==
--- NOTE | 2019-02-20 03:07 | ECWPNPC ---
PATIENT NAME: JUANITA GUARDADO : 1980 GENDER: FEMALE VISIT DATE: 02/17/2019 DISCHARGE DATE: 02/17/19 1456 VISIT LOCKED DATE TIME: PHYSICIAN: NIKKI MACKEY RESOURCE: NIKKI MACKEY REASON FOR APPOINTMENT 1. LOW BACK/NECK HISTORY OF PRESENT ILLNESS HISTORY OF PRESENT ILLNESS: PAIN THE PATIENT DESCRIBES THE PAIN... 38-YEAR-OLD FEMALE IN FOR CHRONIC PAIN FOLLOW-UP. AT LAST CLINIC VISIT SHE WAS STARTED ON MELOXICAM AND FEELS THIS MEDICATION HAS BEEN INEFFECTIVE IN HELPING HER PAIN. SHE RATES HER PAIN CURRENTLY AT AN 8-9 OUT OF 10 AND DESCRIBES IT ACHING, BURNING, SHARP, AND SHOOTING. SHE WOULD LIKE TO DISCUSS TRIGGER POINT INJECTIONS. FALL RISK SCREENING: SCREENING :NO FALLS REPORTED IN THE LAST YEAR CURRENT MEDICATIONS TAKING TRAZODONE HCL 100 MG TABLET 2 TABLET AT BEDTIME ORALLY ONCE A DAY 2.5 TABS TAKING TOPAMAX 200 MG TABLET 1 TABLET ORALLY BEFORE BEDTIME TAKING GABAPENTIN 800 MG TABLET 1 TABLET ORALLY THREE TIMES DAILY TAKING DULOXETINE HCL 60 MG CAPSULE DELAYED RELEASE PARTICLES 1 CAPSULE ORALLY BID TAKING LISINOPRIL-HYDROCHLOROTHIAZIDE 20-12.5 MG TABLET 2 TABLETS ORALLY ONCE A DAY TAKING MIRENA IUD TAKING HYDROXYZINE HCL 25 MG TABLET 1 TABLET NEEDED ORALLY EVERY 8 HRS TAKING ATORVASTATIN CALCIUM 10 MG TABLET 1 TABLET ORALLY ONCE A DAY TAKING VITAMIN D 44776 UNIT CAPSULE 1 CAPSULE ORALLY EVERY 2 WEEKS TAKING MAGNESIUM 200 MG TABLET 2 TABLETS WITH A MEAL ORALLY ONCE A DAY TAKING PRAZOSIN HCL 1 MG CAPSULE 1 CAPSULE AT BEDTIME ORALLY ONCE A DAY TAKING MOBIC 15 MG TABLET 1 TABLET ORALLY WITH FOOD ONCE A DAY FOR PAIN TAKING TIZANIDINE HCL 4 MG TABLET 1 TABLET NEEDED ORALLY THREE TIMES A DAY TAKING GEMFIBROZIL 600 MG TABLET 1 TABLET 30 MINUTES BEFORE MORNING AND EVENING MEALS ORALLY TWICE A DAY MEDICATION LIST REVIEWED AND RECONCILED WITH THE PATIENT PAST MEDICAL HISTORY SYNCOPE HTN ASTHSMA WHOLE BODY ARTHRITIS PTSD NECK AND BACK PAIN CARPAL TUNNEL RIGHT CHRONIC PAIN DEPRESSION AND ANXIETY MIGRAINES FIBROMYALGIA BORDERLINE DIABETIC ALLERGIES AMOXICILLIN: RASH - ALLERGY SULFA (FOR ALLERGY USE ONLY): RASH - ALLERGY SURGICAL HISTORY GALL BLADDER REMOVAL 03/2008 BICEP REPAIR LEFT 02/28 CARPAL TUNNEL RIGHT WRIST 10/2017 FAMILY HISTORY FATHER: ALIVE 56 YRS, DIAGNOSED WITH HYPERTENSION MOTHER: ALIVE 57 YRS, OTHER SPECIFIED CONDITIONS INFLUENCING HEALTH STATUS 1 BROTHER(S) , 2 SISTER(S) - HEALTHY. 1 SON(S) , 1 DAUGHTER(S) . MOM-DEPRESSION, BACK PROBLEMS\\\\NDAUGHTER HAS CELIAC AND , ENVIRONMENTAL [id number]\\\\\\\\\\\\NSON HAS ASTHMA, ENVIRONMENTAL ALLERGIES 11\\\\\\. SOCIAL HISTORY GENERAL: TOBACCO USE ARE YOU A:CURRENT SMOKER ARE YOU INTERESTED IN QUITTING?THINKING ABOUT QUITTING PREVIOUS QUIT ATTEMPTS?YES, WITHIN THE LAST 6 MONTHS. COUNSELED THE PATIENT ON SMOKING CESSATION, EDUCATION [id number]/05/2019 HOW MANY CIGARETTES A DAY DO YOU SMOKE?5 OR LESS HOW SOON AFTER YOU WAKE UP DO YOU SMOKE YOUR FIRST CIGARETTE?AFTER 60 MIN HOW OFTEN DO YOU SMOKE CIGARETTES?SOME DAYS, BUT NOT EVERY DAY PATIENT COUNSELED ON THE DANGERS OF TOBACCO USE AND URGED TO QUIT:02/17/2019 OTHERS AT HOME: OTHER NON-RELATIVE, CHILDREN. HOUSING: RENTS APARTMENT. EDUCATION LEVEL OF EDUCATION:NOT FINISHED COLLEGE DIET: UNEMPLOYED. LANGUAGE LANGUAGES SPOKEN:TURKMEN DOMESTIC VIOLENCE DO YOU FEEL SAFE IN YOUR ENVIRONMENT?YES RECREATIONAL DRUG USE DRUG USE?NO EXERCISE: NONE. LEARNING BARRIERS / SPECIAL NEEDS BARRIERS TO LEARNING?NO HEARING IMPAIRED?NO VISION IMPAIRED?YES COGNITIVELY IMPAIRED?NO :CORRECTIVE LENSES READINESS TO LEARN?YES LEARNING PREFERENCES?YES :DEMONSTRATION/VERBAL INSTRUCTION LEARNING CAPABILITIES PRESENT?YES EMOTIONAL BARRIERS?YES COMMENTS DEPRESSION AND ANXIETY SPECIAL DEVICES?NO NIGHT MANAGER NEEDED?NO PAIN CLINIC PFS, CLERGY, PUBLIC HEALTH REFERRALS PFS REFERRAL NEEDED?NO CLERGY REFERRAL NEEDED?NO PUBLIC HEALTH REFERRAL NEEDED?NO WAS THE PROVIDER NOTIFIED OF ANY PERTINENT INFO? N/A HAS THE PATIENT BEEN EDUCATED REGARDING HIS/HER PLAN OF CARE?YES HAS THE PATIENT BEEN EDUCATED REGARDING PAIN, THE RISK FOR PAIN, THE IMPORTANCE OF EFFECTIVE PAIN MANAGEMENT, AND THE PAIN ASSESSMENT PROCESS?YES LATEX QUESTIONNAIRE LATEX ALLERGY : HAVE YOU EVER DEVELOPED ANY TYPE OF REACTION AFTER HANDLING LATEX PRODUCTS SUCH RUBBER GLOVES, CONDOMS, DIAPHRAGMS, BALLOONS, SOCKS, OR UNDERWEAR?NO LATEX ALLERGY : HAVE YOU EVER DEVELOPED ANY TYPE OF REACTION DURING OR AFTER DENTAL APPOINTMENT, VAGINAL/RECTAL EXAMINATION, SURGICAL PROCEDURE, OR ANY OTHER EXPOSURE?NO DATE ASKED : 11/21/2018 LATEX RISK : HAVE YOU EVER HAD ANY DIFFICULTY BREATHING OR HIVES AFTER EATING OR HANDLING ANY FRUITS, OR VEGETABLES; SUCH KIWI, BANANAS, STONE FRUITS, OR CHESTNUTSNO LATEX RISK : DO YOU HAVE A PREVIOUS PERSONAL HISTORY OF MORE THAN NINE SURGERIES, SPINA BIFIDA, OR REPEATED CATHERIZATIONS? NO LATEX RISK : ARE YOU FREQUENTLY EXPOSED TO LATEX PRODUCTS IN YOUR OCCUPATION?NO CAFFEINE CAFFEINE USE?YES OCCASIONALLY ADVANCE DIRECTIVE ADVANCE DIRECTIVE DISCUSSED WITH PATIENT:YES HCP ASAD ALEJANDRA [phone] [facility] [id number] NONE MARITAL STATUS: .. ALCOHOL SCREENING DID YOU HAVE A DRINK CONTAINING ALCOHOL IN THE PAST YEAR?YES HOW OFTEN DID YOU HAVE SIX OR MORE DRINKS ON ONE OCCASION IN THE PAST YEAR?NEVER (0 POINTS) HOW MANY DRINKS DID YOU HAVE ON A TYPICAL DAY WHEN YOU WERE DRINKING IN THE PAST YEAR?1 OR 2 (0 POINTS) HOW OFTEN DID YOU HAVE A DRINK CONTAINING ALCOHOL IN THE PAST YEAR?MONTHLY OR LESS (1 POINT) POINTS1 INTERPRETATIONNEGATIVE 03/07/18 REVIEWED WITH PT. ADREVIEWED WITH PT 04/12/18 1512 BVREVIEWED WITH PATIENT 05/17/18 1034 JS 10/30/18 REVIEWED WITH PT. AD11/21/18 REVIEWED WITH PT. AD REVIEWED WITH PATIENT 12/27/18 1439 NLJREVIEWED WITH PATIENT 02/17/19 1400 NLJ. HOSPITALIZATION/MAJOR DIAGNOSTIC PROCEDURE SURGERY RELATED CHILDBIRTH COMPLICATIONS WHEN HERE TO HAVE CARPAL TUNNEL--DID NOT HAVE SURGERY 07/11/2017 [facility] 12/2017 REVIEW OF SYSTEMS REVIEWED BY: PROVIDER: HUEY DARBY . CONSTITUTIONAL: ANY CHANGE IN YOUR MEDICAL CONDITION? NO . CHILLS NO . FEVER NO . INFECTION: DO YOU HAVE NEW INFECTIONS? YES- STATES THAT WHEN SHE GETS BLOOD WORK IT COMES BACK THAT SHE HAS AN INFECTION, PCP HAS REFFERED HER TO ENT . DO YOU HAVE HISTORY OF MRSA? NO . MUSCULOSKELETAL: ANY NEW PATTERNS OF PAIN OR NUMBNESS? YES- STATES PAIN IS WORSE, STATES IT IS "ALL OVER PAIN", STATES IT SEEMS TO BE RELATED TO HER FIBROMYALGIA . GASTROENTEROLOGY: ANY NEW CHANGE IN BOWEL CONTROL? NO . GENITOURINARY: ANY NEW CHANGE IN BLADDER CONTROL? NO . IS THERE A CHANCE YOU COULD BE ? UNSURE- STATES SHE CAN NO LONGER FEEL THE STRING FROM HER MIRENA IUD AND STATES SHE HAS BEEN SEXUALLY ACTIVE . HEMATOLOGY/LYMPH: DO YOU TAKE ANY BLOOD THINNERS? (FOR EXAMPLE- COUMADIN, PLAVIX, AGGRENOX, PLATEL, PRADAXA, OR XARELTO) NO . WHEN WAS YOUR LAST DOSE? DATE: TIME: . NEUROLOGY: HAVE YOU FALLEN IN THE PAST 12 MONTHS? NO . ANY NEW EXTREMITY NUMBNESS OR WEAKNESS? YES- STATES BIG TOES FEEL NUMB . CARDIOLOGY: DO YOU HAVE A PACEMAKER OR DEFIBRILLATOR? NO . RESPIRATORY: HAVE YOU BEEN SICK IN THE PAST WEEK? NO . FEVER NO . FLU LIKE SYMPTOMS? NO . COUGH NO . INTEGUMENTARY: DO YOU HAVE ANY RASHES OR OPEN SORES? YES- OPEN SORE IN NOSE PCP HAS REFFERED HER TO ENT . ALLERGIC/IMMUNO: ARE YOU ALLERGIC TO IV DYE? NO . ANY NEW ALLERGIES? NO . PSYCHIATRIC: DO YOU HAVE THOUGHTS OF HURTING YOURSELF OR SOMEONE ELSE? NO . ARE YOU ABUSED, NEGLECTED, OR IN AN UNSAFE ENVIRONMENT? NO . ENDOCRINOLOGY: ARE YOU DIABETIC? YES . OTHER: DO YOU NEED ANY PRESCRIPTIONS? NO . IF YES, PLEASE LIST: ____ . ANY NEW PROBLEMS WITH YOUR MEDICATIONS? YES- STATES THAT SHE FEELS LIKE SHE IS OVERMEDICATED AND STATES SHE FEELS LIKE THE PAIN MEDS DO NOT WORK . WHEN DID YOU LAST EAT? ____ . WHEN DID YOU LAST DRINK? ____ . WHAT DID YOU LAST DRINK? ____ . NAME OF PERSON DRIVING YOU HOME? ____ . DO YOU HAVE ANY OTHER QUESTIONS OR CONCERNS YES- STATES THAT SHE WOULD LIKE A REVIEW OF HER MEDS . VITAL SIGNS WT 250.8 LBS, HT 63 IN, BMI 44.42 INDEX, BP 128/78 MM HG, HR 108 /MIN, RR 18 /MIN, TEMP 97.6 F, OXYGEN SAT % 96%, SAFE IN ENV? (Y/N) YES, NA INITIALS AW 1415, REVIEWED BY: BK. EXAMINATION GENERAL EXAMINATION: GENERALNO ACUTE DISTRESS, WELL NOURISHED AND HYDRATED. PSYCHAPPROPRIATE MOOD AND AFFECT . LUNGS:CLEAR TO AUSCULTATION BILATERALLY, NO WHEEZES, RHONCHI, RALES. HEART:NO MURMURS, REGULAR RATE AND RHYTHM. BACK:POINT TENDER ACROSS UPPER BACK, SURROUNDING SKIN SHOWS NO ERYTHEMA, ECCHYMOSIS, INCREASED WARMTH, AND/OR SKIN ERUPTIONS NOTED. . ASSESSMENTS MYALGIA, OTHER SITE - M79.18 (PRIMARY) TREATMENT MYALGIA, OTHER SITE STOP TIZANIDINE HCL TABLET, 4 MG, 1 TABLET NEEDED, ORALLY, THREE TIMES A DAY START METHOCARBAMOL TABLET, 750 MG, 1 TABLET, ORALLY, EVERY 4 HRS, 30 DAY(S), 180 NOTES: TPI BILATERAL UPPER BACK. CLINICAL NOTES: 38-YEAR-OLD FEMALE IN FOR CHRONIC PAIN FOLLOW-UP. GIVEN PRESENTING SYMPTOMS AND RESULTS OF PHYSICAL EXAMINATION RECOMMENDED STOPPING TIZANIDINE AND STARTING METHOCARBAMOL. WE'LL CONTINUE WITH MELOXICAM AT THIS TIME. FURTHER RECOMMENDED TPI OF THE UPPER BACK WITH POST PROCEDURAL FOLLOW-UP. PATIENT HAS EXPRESSED UNDERSTANDING OF AND WAS IN AGREEMENT WITH TREATMENT PLAN. GIVEN TIME TO ASK QUESTIONS AND EXPRESS CONCERNS. . PREVENTIVE MEDICINE PAIN CLINIC TEACHING: PROCEDURE TEACHING TRIGGER POINT INJECTION PROCEDURE INFORMATION PRINTED AND REVIEWED WITH PATIENT, PT VERBALIZES UNDERSTANDING. 02/17/19 1446 ON LICENSE OF [facility]. PROCEDURE CODES FA211 ESTABILISHED PATIENT [facility] CHARGE DISPOSITION & COMMUNICATION FOLLOW UP POST PROCEDURE (REASON: TPI OF UPPER BACK ) ELECTRONICALLY SIGNED BY MARCELINA GALLARDO ON 02/19/2019 AT 01:00 PM EST DISCLAIMER : THIS IS A VISIT SUMMARY EXTRACTED FROM THE [employer] CHART. IT IS NOT A COPY OF THE [employer] PROGRESS NOTE. JOSE R
== END ==
LOC: M PAIN 13:45
PROVIDERS: ATTEND Family Medicine
DX: M79.18 Myalgia, other site (principal)

== ENCOUNTER → 2019-03-07 | Outpatient (CLI) | payer OTHER ==
[~2019-03-07] MED LIST changes: +BUPIVACAINE HCL 0.25% 10 ML VIAL As Ordered ONE; +BUPIVACAINE HCL 0.25% 30 ML VIAL As Ordered ONE; +TRIAMCINOLONE ACETONIDE SUSP 40 MG/ML VIAL (J3301) As Ordered ONE; +diazePAM 5 MG TAB As Ordered ONE; +oxyCODONE 5MG TAB As Ordered ONE
--- NOTE | 2019-03-21 02:59 | ECWPNPC ---
PATIENT NAME: JUANITA GUARDADO : 1980 GENDER: FEMALE VISIT DATE: 03/07/2019 DISCHARGE DATE: 03/07/19 1019 VISIT LOCKED DATE TIME: PHYSICIAN: LEW MAYORGA MD RESOURCE: LEW MAYORGA MD REASON FOR APPOINTMENT 1. TPI RT SHOULDER/RT NECK HISTORY OF PRESENT ILLNESS HISTORY OF PRESENT ILLNESS: PAIN THE PATIENT DESCRIBES THE PAIN... FALL RISK SCREENING: SCREENING :NO FALLS REPORTED IN THE LAST YEAR CURRENT MEDICATIONS TAKING TRAZODONE HCL 100 MG TABLET 2 TABLET AT BEDTIME ORALLY ONCE A DAY 2.5 TABS, NOTES: 03/06/192099 TAKING TOPAMAX 200 MG TABLET 1 TABLET ORALLY BEFORE BEDTIME, NOTES: 03/06/192099 TAKING GABAPENTIN 800 MG TABLET 1 TABLET ORALLY THREE TIMES DAILY, NOTES: 03/06/19799 TAKING DULOXETINE HCL 60 MG CAPSULE DELAYED RELEASE PARTICLES 1 CAPSULE ORALLY BID, NOTES: 03/07/19799 TAKING LISINOPRIL-HYDROCHLOROTHIAZIDE 20-12.5 MG TABLET 2 TABLETS ORALLY ONCE A DAY, NOTES: 03/07/19799 TAKING MIRENA IUD , NOTES: CURREBTLY TAKING HYDROXYZINE HCL 25 MG TABLET 1 TABLET NEEDED ORALLY EVERY 8 HRS, NOTES: 03/07/19799 TAKING ATORVASTATIN CALCIUM 10 MG TABLET 1 TABLET ORALLY ONCE A DAY, NOTES: 03/07/19799 TAKING VITAMIN D 49020 UNIT CAPSULE 1 CAPSULE ORALLY EVERY 2 WEEKS, NOTES: LAST Sunday02/28/19 TAKING MAGNESIUM 200 MG TABLET 2 TABLETS WITH A MEAL ORALLY ONCE A DAY, NOTES: HAS NOT TAKEN IN 2 MONTHS TAKING PRAZOSIN HCL 1 MG CAPSULE 1 CAPSULE AT BEDTIME ORALLY ONCE A DAY, NOTES: 03/06/192099 TAKING MOBIC 15 MG TABLET 1 TABLET ORALLY WITH FOOD ONCE A DAY FOR PAIN, NOTES: 03/07/19799 TAKING GEMFIBROZIL 600 MG TABLET 1 TABLET 30 MINUTES BEFORE MORNING AND EVENING MEALS ORALLY TWICE A DAY, NOTES: 03/07/19799 TAKING METHOCARBAMOL 750 MG TABLET 1 TABLET ORALLY EVERY 4 HRS, NOTES: 03/07/19799 MEDICATION LIST REVIEWED AND RECONCILED WITH THE PATIENT PAST MEDICAL HISTORY SYNCOPE HTN ASTHSMA WHOLE BODY ARTHRITIS PTSD NECK AND BACK PAIN CARPAL TUNNEL RIGHT CHRONIC PAIN DEPRESSION AND ANXIETY MIGRAINES FIBROMYALGIA BORDERLINE DIABETIC ALLERGIES AMOXICILLIN: RASH - ALLERGY SULFA (FOR ALLERGY USE ONLY): RASH - ALLERGY SURGICAL HISTORY GALL BLADDER REMOVAL 03/2008 BICEP REPAIR LEFT 02/28 CARPAL TUNNEL RIGHT WRIST 10/2017 FAMILY HISTORY FATHER: ALIVE 56 YRS, DIAGNOSED WITH HYPERTENSION MOTHER: ALIVE 57 YRS, OTHER SPECIFIED CONDITIONS INFLUENCING HEALTH STATUS 1 BROTHER(S) , 2 SISTER(S) - HEALTHY. 1 SON(S) , 1 DAUGHTER(S) . MOM-DEPRESSION, BACK PROBLEMS\\NDAUGHTER HAS CELIAC AND , ENVIRONMENTAL [id number]\\\\\NSON HAS ASTHMA, ENVIRONMENTAL ALLERGIES 11\\. SOCIAL HISTORY GENERAL: TOBACCO USE ARE YOU A:CURRENT SMOKER ARE YOU INTERESTED IN QUITTING?THINKING ABOUT QUITTING PREVIOUS QUIT ATTEMPTS?YES, WITHIN THE LAST 6 MONTHS. COUNSELED THE PATIENT ON SMOKING CESSATION, EDUCATION [id number]/20/2019 HOW MANY CIGARETTES A DAY DO YOU SMOKE?5 OR LESS HOW SOON AFTER YOU WAKE UP DO YOU SMOKE YOUR FIRST CIGARETTE?AFTER 60 MIN HOW OFTEN DO YOU SMOKE CIGARETTES?SOME DAYS, BUT NOT EVERY DAY PATIENT COUNSELED ON THE DANGERS OF TOBACCO USE AND URGED TO QUIT:03/07/2019 OTHERS AT HOME: OTHER NON-RELATIVE, CHILDREN. HOUSING: RENTS APARTMENT. EDUCATION LEVEL OF EDUCATION:NOT FINISHED COLLEGE DIET: UNEMPLOYED. LANGUAGE LANGUAGES SPOKEN:PERSIAN DOMESTIC VIOLENCE DO YOU FEEL SAFE IN YOUR ENVIRONMENT?YES RECREATIONAL DRUG USE DRUG USE?NO EXERCISE: NONE. LEARNING BARRIERS / SPECIAL NEEDS BARRIERS TO LEARNING?NO HEARING IMPAIRED?NO VISION IMPAIRED?YES COGNITIVELY IMPAIRED?NO :CORRECTIVE LENSES READINESS TO LEARN?YES LEARNING PREFERENCES?YES :DEMONSTRATION/VERBAL INSTRUCTION LEARNING CAPABILITIES PRESENT?YES EMOTIONAL BARRIERS?YES COMMENTS DEPRESSION AND ANXIETY SPECIAL DEVICES?NO ROBOTIC MAINTENANCE TECHNICIAN NEEDED?NO PAIN CLINIC PFS, CLERGY, PUBLIC HEALTH REFERRALS PFS REFERRAL NEEDED?NO CLERGY REFERRAL NEEDED?NO PUBLIC HEALTH REFERRAL NEEDED?NO WAS THE PROVIDER NOTIFIED OF ANY PERTINENT INFO? N/A HAS THE PATIENT BEEN EDUCATED REGARDING HIS/HER PLAN OF CARE?YES HAS THE PATIENT BEEN EDUCATED REGARDING PAIN, THE RISK FOR PAIN, THE IMPORTANCE OF EFFECTIVE PAIN MANAGEMENT, AND THE PAIN ASSESSMENT PROCESS?YES LATEX QUESTIONNAIRE LATEX ALLERGY : HAVE YOU EVER DEVELOPED ANY TYPE OF REACTION AFTER HANDLING LATEX PRODUCTS SUCH RUBBER GLOVES, CONDOMS, DIAPHRAGMS, BALLOONS, SOCKS, OR UNDERWEAR?NO LATEX ALLERGY : HAVE YOU EVER DEVELOPED ANY TYPE OF REACTION DURING OR AFTER DENTAL APPOINTMENT, VAGINAL/RECTAL EXAMINATION, SURGICAL PROCEDURE, OR ANY OTHER EXPOSURE?NO DATE ASKED : 11/21/2018 LATEX RISK : HAVE YOU EVER HAD ANY DIFFICULTY BREATHING OR HIVES AFTER EATING OR HANDLING ANY FRUITS, OR VEGETABLES; SUCH KIWI, BANANAS, STONE FRUITS, OR CHESTNUTSNO LATEX RISK : DO YOU HAVE A PREVIOUS PERSONAL HISTORY OF MORE THAN NINE SURGERIES, SPINA BIFIDA, OR REPEATED CATHERIZATIONS? NO LATEX RISK : ARE YOU FREQUENTLY EXPOSED TO LATEX PRODUCTS IN YOUR OCCUPATION?NO CAFFEINE CAFFEINE USE?YES OCCASIONALLY ADVANCE DIRECTIVE ADVANCE DIRECTIVE DISCUSSED WITH PATIENT:YES HCP ASAD ALEJANDRA [phone] MOM TAOISM [id number] NONE MARITAL STATUS: .. ALCOHOL SCREENING DID YOU HAVE A DRINK CONTAINING ALCOHOL IN THE PAST YEAR?YES HOW OFTEN DID YOU HAVE SIX OR MORE DRINKS ON ONE OCCASION IN THE PAST YEAR?NEVER (0 POINTS) HOW MANY DRINKS DID YOU HAVE ON A TYPICAL DAY WHEN YOU WERE DRINKING IN THE PAST YEAR?1 OR 2 (0 POINTS) HOW OFTEN DID YOU HAVE A DRINK CONTAINING ALCOHOL IN THE PAST YEAR?MONTHLY OR LESS (1 POINT) POINTS1 INTERPRETATIONNEGATIVE 03/07/18 REVIEWED WITH PT. ADREVIEWED WITH PT 04/12/18 1512 BVREVIEWED WITH PATIENT 05/17/18 1034 JS 10/30/18 REVIEWED WITH PT. AD11/21/18 REVIEWED WITH PT. AD REVIEWED WITH PATIENT 12/27/18 1439 NLJREVIEWED WITH PATIENT 02/17/19 1400 NLJREVIEWED WITH PATIENT 03/07/19 0847 NLJ. HOSPITALIZATION/MAJOR DIAGNOSTIC PROCEDURE SURGERY RELATED CHILDBIRTH COMPLICATIONS WHEN HERE TO HAVE CARPAL TUNNEL--DID NOT HAVE SURGERY 07/11/2017 [facility] 12/2017 REVIEW OF SYSTEMS REVIEWED BY: PROVIDER: . CONSTITUTIONAL: ANY CHANGE IN YOUR MEDICAL CONDITION? NO . CHILLS NO . FEVER NO . INFECTION: DO YOU HAVE NEW INFECTIONS? NO . DO YOU HAVE HISTORY OF MRSA? NO . MUSCULOSKELETAL: ANY NEW PATTERNS OF PAIN OR NUMBNESS? NO . GASTROENTEROLOGY: ANY NEW CHANGE IN BOWEL CONTROL? NO . GENITOURINARY: ANY NEW CHANGE IN BLADDER CONTROL? NO . IS THERE A CHANCE YOU COULD BE ? NO . HEMATOLOGY/LYMPH: DO YOU TAKE ANY BLOOD THINNERS? (FOR EXAMPLE- COUMADIN, PLAVIX, AGGRENOX, PLATEL, PRADAXA, OR XARELTO) NO . WHEN WAS YOUR LAST DOSE? DATE: TIME: . NEUROLOGY: HAVE YOU FALLEN IN THE PAST 12 MONTHS? YES- FELL February WHEN GOING OUT TO SHOVEL FELL ONTO RIGHT SIDE, STATES NO MEDICAL CARE RECEIVED . ANY NEW EXTREMITY NUMBNESS OR WEAKNESS? YES- INCREASED PAIN, NUMBNESS AND TINGLING SINCE FALL 02/21/19 . CARDIOLOGY: DO YOU HAVE A PACEMAKER OR DEFIBRILLATOR? NO . RESPIRATORY: HAVE YOU BEEN SICK IN THE PAST WEEK? NO . FEVER NO . FLU LIKE SYMPTOMS? NO . COUGH NO . INTEGUMENTARY: DO YOU HAVE ANY RASHES OR OPEN SORES? NO . ALLERGIC/IMMUNO: ARE YOU ALLERGIC TO IV DYE? NO . ANY NEW ALLERGIES? NO . PSYCHIATRIC: DO YOU HAVE THOUGHTS OF HURTING YOURSELF OR SOMEONE ELSE? NO . ARE YOU ABUSED, NEGLECTED, OR IN AN UNSAFE ENVIRONMENT? NO . ENDOCRINOLOGY: ARE YOU DIABETIC? NO- BORDERLINE . OTHER: DO YOU NEED ANY PRESCRIPTIONS? NO . IF YES, PLEASE LIST: ____ . ANY NEW PROBLEMS WITH YOUR MEDICATIONS? NO . WHEN DID YOU LAST EAT? 03/06/19- 2030 . WHEN DID YOU LAST DRINK? 03/07/19 0830 . WHAT DID YOU LAST DRINK? WATER . NAME OF PERSON DRIVING YOU HOME? ROM SOTO- SISTER . DO YOU HAVE ANY OTHER QUESTIONS OR CONCERNS YES- JASMEET GUADALUPE- NEUROLOGIST HAS ORDERED NEW MRI OF NECK AND BACK- HAS NOT HAD YET . VITAL SIGNS WT 256 LBS, HT 63 IN, BMI 45.34 INDEX, BP 131/82 MM HG, HR 99 /MIN, RR 18 /MIN, TEMP 97.4 F, OXYGEN SAT % 98%, SAFE IN ENV? (Y/N) YES, NA INITIALS [place] 08:52, REVIEWED BY: BK. ASSESSMENTS MYALGIA, OTHER SITE - M79.18 (PRIMARY) PROCEDURES PN TRIGGER POINT INJECTION WITH STEROIDS PRE PROCEDURE DIAGNOSIS 1. MYALGIA 2. PAIN AT RIGHT SHOULDER AREA AND RIGHT NECK AREA. POST PROCEDURE DIAGNOSIS 1. MYALGIA 2. PAIN AT RIGHT SHOULDER AREA AND RIGHT NECK AREA. PROCEDURE TRIGGER POINT INJECTION AT RIGHT SHOULDER AREA AND RIGHT NECK AREA. SURGEON DR. LEW MAYORGA ENVIRONMENTAL PROGRAMS MANAGER NONE ANESTHESIA LOCAL PRE PROCEDURE NOTE THE PATIENT HAS A HISTORY OF CHRONIC PAIN AT THE RIGHT SHOULDER AREA AND RIGHT NECK AREA. I EVALUATED THE PATIENT AND REVIEWED THE CHART. THERE IS EVIDENCE OF BANDS OF TISSUE WITH RESTRICTION OF MOVEMENT AND PRESENCE OF TRIGGER POINT AT THE AFFECTED AREA. I WENT OVER THE RISKS, ALTERNATIVES, AND BENEFITS ASSOCIATED WITH THIS PROCEDURE. THE PATIENT WOULD LIKE TO PROCEED AND GIVES CONSENT TO PERFORM THE PROCEDURE. THE PATIENT DENIES UNEXPLAINABLE WEIGHT LOSS, FEVER, CHILLS, OR NEW CHANGES IN URINARY OR BOWEL CONTROL DESCRIPTION OF PROCEDURE THE PATIENT WAS BROUGHT TO THE PROCEDURE ROOM AND PLACED IN THE SITTING POSITION. THE AREA WAS CLEANED WITH ALCOHOL. THE PROCEDURE WAS DONE USING ASEPTIC STERILE TECHNIQUE. I CHECKED LATERALITY AND THE LEVEL WHERE THE PROCEDURE WAS GOING TO BE PERFORMED WITH THE PATIENT AND THE SUPPORTING STAFF AT THE MOMENT OF THE TIME OUT IN THE PROCEDURE ROOM. USING A 25-GAUGE NEEDLE, TRIGGER POINTS WERE INJECTED AT THE RIGHT SHOULDER AREA AND RIGHT NECK AREA WITH A TOTAL OF 40 ML OF BUPIVACAINE 0.25% AND KENALOG 40 MG. THERE WAS NO EVIDENCE OF BLOOD, PARESTHESIA OR CEREBROSPINAL FLUID DURING THE PROCEDURE. THE PATIENT WAS SENT TO THE RECOVERY ROOM. THE PATIENT WAS MOVING THE EXTREMITIES AND DOING WELL. THERE WAS NO COMPLICATION DURING THE PROCEDURE POST PROCEDURE NOTE I AM LOOKING FOR LONG LASTING PAIN RELIEF WITH THESE INJECTIONS. THE PATIENT WILL BE SEEN IN A FOLLOW UP IN THE NEXT FEW WEEKS. INSTRUCTIONS WERE GIVEN, QUESTIONS WERE ANSWERED, AND THE PATIENT EXPRESSED UNDERSTANDING AND AGREES WITH THE PLAN. I, RAFAEL SEE, DOCUMENTED THE ABOVE INFORMATION ACTING A SCRIBE FOR DR. MAYORGA. I HAVE REVIEWED THE ABOVE DOCUMENT, WRITTEN BY RAFAEL MELTON AND I VERIFY THAT IT IS ACCURATE. PROCEDURE CODES 93736 INJ TRIGGER POINT 03/20 [facility] DISPOSITION & COMMUNICATION FOLLOW UP 3 WEEKS ELECTRONICALLY SIGNED BY LEW MAYORGA MD, MD ON 03/20/2019 AT 01:50 PM EST DISCLAIMER : THIS IS A VISIT SUMMARY EXTRACTED FROM THE [employer] CHART. IT IS NOT A COPY OF THE [employer] PROGRESS NOTE. JOSE R
== END ==
LOC: M PAIN 08:45
PROVIDERS: ATTEND Anesthesiology
DX: M79.18 Myalgia, other site (principal)
CPT/HCPCS: 20552; J3301

== ENCOUNTER → 2019-03-28 | Outpatient (CLI) | payer OTHER ==
[~2019-03-28] MED LIST changes: -BUPIVACAINE HCL 0.25% 10 ML VIAL As Ordered ONE; -BUPIVACAINE HCL 0.25% 30 ML VIAL As Ordered ONE; -TRAZ-163; +TRAZ-257; -TRIAMCINOLONE ACETONIDE SUSP 40 MG/ML VIAL (J3301) As Ordered ONE; -diazePAM 5 MG TAB As Ordered ONE; -oxyCODONE 5MG TAB As Ordered ONE
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
== END ==
LOC: M PAIN 11:00
PROVIDERS: ATTEND Family Medicine
DX: M51.16 Intervertebral disc disorders with radiculopathy, lumbar region (principal); M79.18 Myalgia, other site

== ENCOUNTER → 2019-05-14 | Outpatient (CLI) | payer OTHER ==
[~2019-05-14] MED LIST changes: -FLUO20CA19 PO; +FLUO20CA22 PO
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
== END ==
LOC: M PAIN 10:30
PROVIDERS: ATTEND Family Medicine
DX: M51.16 Intervertebral disc disorders with radiculopathy, lumbar region (principal); J45.909 Unspecified asthma, uncomplicated; F43.10 Post-traumatic stress disorder, unspecified; M79.7 Fibromyalgia; G89.29 Other chronic pain; F17.210 Nicotine dependence, cigarettes, uncomplicated; Z79.899 Other long term (current) drug therapy; Z88.0 Allergy status to penicillin; Z88.2 Allergy status to sulfonamides

== ENCOUNTER → 2019-07-31 | Outpatient (CLI) | payer OTHER ==
--- NOTE | 2019-08-01 23:48 | ECWPNPC ---
PATIENT NAME: JUANITA GUARDADO : 1980 GENDER: FEMALE VISIT DATE: 07/31/2019 DISCHARGE DATE: 07/31/19 1014 VISIT LOCKED DATE TIME: PHYSICIAN: NIKKI MACKEY RESOURCE: NIKKI MACKEY REASON FOR APPOINTMENT 1. BACK PAIN PAT COMPLETED HISTORY OF PRESENT ILLNESS HISTORY OF PRESENT ILLNESS: PAIN THE PATIENT DESCRIBES THE PAINDURING THE LAST MONTH SEVERITY - PAIN SCORE OF3/10 LOCATIONSLOWER BACK RIGHT SIDE QUALITYSTABBING DURATIONCONTINUOUS, CONSTANT, ALL DAY, AWAKENS FROM SLEEEP PAIN IS INCREASED BY:ACTIVITIES, PROLONGED STANDING PAIN IS DECREASED BY: LYING DOWN PERMISSION REQUESTED AND RECEIVED FROM PATIENT TO PERFORM TELEPHONE VISIT. 39-YEAR-OLD FEMALE IN FOR CHRONIC PAIN FOLLOW-UP. SHE RATES HER PAIN CURRENTLY AT A 3 OUT OF 10. PATIENT HAD AN LESI PERFORMED IN [place]IL AND IT CONTINUES TO HELP HER TODAY. SHE WOULD LIKE TO DISCUSS TRIGGER POINT INJECTIONS FOR HER NECK. FALL RISK SCREENING: SCREENING :ONE FALL WITH INJURY IN THE PAST YEAR FELL February WITH A COMPRESSION FRACTURE AT THE BACK CURRENT MEDICATIONS TAKING TRAZODONE HCL 100 MG TABLET 2 TABLET AT BEDTIME ORALLY ONCE A DAY 2.5 TABS TAKING TOPAMAX 200 MG TABLET 1 TABLET ORALLY BEFORE BEDTIME TAKING GABAPENTIN 800 MG TABLET 1 TABLET ORALLY THREE TIMES DAILY TAKING DULOXETINE HCL 60 MG CAPSULE DELAYED RELEASE PARTICLES 1 CAPSULE ORALLY BID TAKING LISINOPRIL-HYDROCHLOROTHIAZIDE 20-12.5 MG TABLET 2 TABLETS ORALLY ONCE A DAY TAKING MIRENA IUD TAKING HYDROXYZINE HCL 25 MG TABLET 1 TABLET NEEDED ORALLY EVERY 8 HRS TAKING ATORVASTATIN CALCIUM 10 MG TABLET 1 TABLET ORALLY ONCE A DAY TAKING VITAMIN D 59552 UNIT CAPSULE 1 CAPSULE ORALLY EVERY 2 WEEKS TAKING MAGNESIUM 250 MG TABLET 2 TABLETS WITH A MEAL ORALLY ONCE A DAY TAKING PRAZOSIN HCL 1 MG CAPSULE 1 CAPSULE AT BEDTIME ORALLY ONCE A DAY TAKING GEMFIBROZIL 600 MG TABLET 1 TABLET 30 MINUTES BEFORE MORNING AND EVENING MEALS ORALLY DAILY TAKING METHOCARBAMOL 750 MG TABLET 1 TABLET ORALLY EVERY 4 HRS TAKING MOBIC 15 MG TABLET 1 TABLET ORALLY WITH FOOD ONCE A DAY FOR PAIN MEDICATION LIST REVIEWED AND RECONCILED WITH THE PATIENT PAST MEDICAL HISTORY SYNCOPE HTN ASTHSMA WHOLE BODY ARTHRITIS PTSD NECK AND BACK PAIN CARPAL TUNNEL RIGHT CHRONIC PAIN DEPRESSION AND ANXIETY MIGRAINES FIBROMYALGIA BORDERLINE DIABETIC ALLERGIES AMOXICILLIN: RASH - ALLERGY SULFA (FOR ALLERGY USE ONLY): RASH - ALLERGY SURGICAL HISTORY GALL BLADDER REMOVAL 03/2008 BICEP REPAIR LEFT 02/28 CARPAL TUNNEL RIGHT WRIST 10/2017 FAMILY HISTORY FATHER: ALIVE 56 YRS, DIAGNOSED WITH HYPERTENSION MOTHER: ALIVE 57 YRS, OTHER SPECIFIED CONDITIONS INFLUENCING HEALTH STATUS 1 BROTHER(S) , 2 SISTER(S) - HEALTHY. 1 SON(S) , 1 DAUGHTER(S) . MOM-DEPRESSION, BACK PROBLEMS\\NDAUGHTER HAS CELIAC AND , ENVIRONMENTAL [id number]\\\\\\NSON HAS ASTHMA, ENVIRONMENTAL ALLERGIES 11\\\. SOCIAL HISTORY GENERAL: TOBACCO USE ARE YOU A:CURRENT SMOKER ARE YOU INTERESTED IN QUITTING?NOT READY TO QUIT COUNSELED THE PATIENT ON SMOKING EFFECTS, EDUCATION [id number]/2020 HOW MANY CIGARETTES A DAY DO YOU SMOKE?5 OR LESS HOW SOON AFTER YOU WAKE UP DO YOU SMOKE YOUR FIRST CIGARETTE?AFTER 60 MIN HOW OFTEN DO YOU SMOKE CIGARETTES?SOME DAYS, BUT NOT EVERY DAY PATIENT COUNSELED ON THE DANGERS OF TOBACCO USE AND URGED TO QUIT:07/30/2019 SMOKING CESSATION INFORMATION GIVEN07/30/2019 LATEX QUESTIONNAIRE LATEX ALLERGY : HAVE YOU EVER DEVELOPED ANY TYPE OF REACTION AFTER HANDLING LATEX PRODUCTS SUCH RUBBER GLOVES, CONDOMS, DIAPHRAGMS, BALLOONS, SOCKS, OR UNDERWEAR?NO LATEX ALLERGY : HAVE YOU EVER DEVELOPED ANY TYPE OF REACTION DURING OR AFTER DENTAL APPOINTMENT, VAGINAL/RECTAL EXAMINATION, SURGICAL PROCEDURE, OR ANY OTHER EXPOSURE?NO DATE ASKED : 04/29/2019 LATEX RISK : HAVE YOU EVER HAD ANY DIFFICULTY BREATHING OR HIVES AFTER EATING OR HANDLING ANY FRUITS, OR VEGETABLES; SUCH KIWI, BANANAS, STONE FRUITS, OR CHESTNUTSNO LATEX RISK : DO YOU HAVE A PREVIOUS PERSONAL HISTORY OF MORE THAN NINE SURGERIES, SPINA BIFIDA, OR REPEATED CATHERIZATIONS? 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 EXERCISE: NONE. MARITAL STATUS: .. OTHERS AT HOME: OTHER NON-RELATIVE, CHILDREN. PAIN CLINIC PFS, CLERGY, PUBLIC HEALTH REFERRALS PFS REFERRAL NEEDED?NO CLERGY REFERRAL NEEDED?NO PUBLIC HEALTH REFERRAL NEEDED?NO WAS THE PROVIDER NOTIFIED OF ANY PERTINENT INFO? N/A HAS THE PATIENT BEEN EDUCATED REGARDING HIS/HER PLAN OF CARE?YES HAS THE PATIENT BEEN EDUCATED REGARDING PAIN, THE RISK FOR PAIN, THE IMPORTANCE OF EFFECTIVE PAIN MANAGEMENT, AND THE PAIN ASSESSMENT PROCESS?YES HOUSING: RENTS APARTMENT. ADVANCE DIRECTIVE ADVANCE DIRECTIVE DISCUSSED WITH PATIENT:YES HCP ASAD ALEJANDRA [phone] MOM HOSPITALIZATION/MAJOR DIAGNOSTIC PROCEDURE SURGERY RELATED CHILDBIRTH COMPLICATIONS WHEN HERE TO HAVE CARPAL TUNNEL--DID NOT HAVE SURGERY 07/11/2017 [facility] 12/2017 REVIEW OF SYSTEMS REVIEWED BY: PROVIDER: HUEY MACKEY METAL CONTROL WORKER-C . CONSTITUTIONAL: ANY CHANGE IN YOUR MEDICAL CONDITION? NO . CHILLS NO . FEVER NO . INFECTION: DO YOU HAVE NEW INFECTIONS? NO . DO YOU HAVE HISTORY OF MRSA? NO . MUSCULOSKELETAL: ANY NEW PATTERNS OF PAIN OR NUMBNESS? NO . GASTROENTEROLOGY: ANY NEW CHANGE IN BOWEL CONTROL? NO . GENITOURINARY: ANY NEW CHANGE IN BLADDER CONTROL? NO . IS THERE A CHANCE YOU COULD BE ? NO . HEMATOLOGY/LYMPH: DO YOU TAKE ANY BLOOD THINNERS? (FOR EXAMPLE- COUMADIN, PLAVIX, AGGRENOX, PLATEL, PRADAXA, OR XARELTO) NO . WHEN WAS YOUR LAST DOSE? DATE: TIME: . NEUROLOGY: HAVE YOU FALLEN IN THE PAST 12 MONTHS? YES . ANY NEW EXTREMITY NUMBNESS OR WEAKNESS? NO . CARDIOLOGY: DO YOU HAVE A PACEMAKER OR DEFIBRILLATOR? NO . RESPIRATORY: HAVE YOU BEEN SICK IN THE PAST WEEK? NO . FEVER NO . FLU LIKE SYMPTOMS? NO . COUGH NO . INTEGUMENTARY: DO YOU HAVE ANY RASHES OR OPEN SORES? NO . ALLERGIC/IMMUNO: ARE YOU ALLERGIC TO IV DYE? NO . ANY NEW ALLERGIES? NO . PSYCHIATRIC: DO YOU HAVE THOUGHTS OF HURTING YOURSELF OR SOMEONE ELSE? NO . ARE YOU ABUSED, NEGLECTED, OR IN AN UNSAFE ENVIRONMENT? NO . ENDOCRINOLOGY: ARE YOU DIABETIC? YES, BORDERLINE DIABETIC . OTHER: DO YOU NEED ANY PRESCRIPTIONS? YES,METHOCARBAMOL . IF YES, PLEASE LIST: ____ . ANY NEW PROBLEMS WITH YOUR MEDICATIONS? NO . WHEN DID YOU LAST EAT? ____ . WHEN DID YOU LAST DRINK? ____ . WHAT DID YOU LAST DRINK? ____ . NAME OF PERSON DRIVING YOU HOME? ____ . DO YOU HAVE ANY OTHER QUESTIONS OR CONCERNS NO . EXAMINATION GENERAL EXAMINATION: PSYCHAPPROPRIATE MOOD AND AFFECT , ORIENTED X 3 . ASSESSMENTS INTERVERTEBRAL DISC DISORDER WITH RADICULOPATHY OF LUMBOSACRAL REGION - M51.17 (PRIMARY) TREATMENT INTERVERTEBRAL DISC DISORDER WITH RADICULOPATHY OF LUMBOSACRAL REGION CLINICAL NOTES: 39-YEAR-OLD FEMALE IN FOR CHRONIC PAIN FOLLOW-UP. GIVEN PRESENTING SYMPTOMS RECOMMEND IN CLINIC VISIT IN 4 WEEKS TO DISCUSS POTENTIAL TRIGGER POINT INJECTIONS. PATIENT HAS EXPRESSED UNDERSTANDING OF AND WAS IN AGREEMENT WITH TREATMENT PLAN. GIVEN TIME TO ASK QUESTIONS AND EXPRESS CONCERNS. VISIT TO BE BILLED BASED ON TIME SPENT WITH PATIENT. TIME SPENT WITH PATIENT 11 MINUTES. OTHERS REFILL METHOCARBAMOL TABLET, 750 MG, 1 TABLET, ORALLY, EVERY 4 HRS, 30 DAY(S), 180 NOTES: VITALS NOT OBTAINED DUE TO VIRTUAL VISIT, PRE-SCREENING DONE 07/30/19, NA . DISPOSITION & COMMUNICATION FOLLOW UP 4 WEEKS (REASON: NECK PAIN, IN CLINIC) ELECTRONICALLY SIGNED BY MARCELINA GALLARDO ON 08/01/2019 AT 08:27 AM EDT DISCLAIMER : THIS IS A VISIT SUMMARY EXTRACTED FROM THE [employer] CHART. IT IS NOT A COPY OF THE [employer] PROGRESS NOTE. JOSE R
== END ==
LOC: M PAIN 09:45
PROVIDERS: ATTEND Family Medicine
DX: M51.17 Intervertebral disc disorders with radiculopathy, lumbosacral region (principal); G89.29 Other chronic pain; I10 Essential (primary) hypertension; J45.909 Unspecified asthma, uncomplicated; Z86.59 Personal history of other mental and behavioral disorders; G43.909 Migraine, unspecified, not intractable, without status migrainosus; M79.7 Fibromyalgia; F17.210 Nicotine dependence, cigarettes, uncomplicated; Z88.1 Allergy status to other antibiotic agents; Z88.2 Allergy status to sulfonamides; Z79.899 Other long term (current) drug therapy

== ENCOUNTER → 2019-09-12 | Outpatient (CLI) | payer OTHER ==
--- NOTE | 2019-09-16 02:13 | ECWPNPC ---
PATIENT NAME: JUANITA GUARDADO : 1980 GENDER: FEMALE VISIT DATE: 09/12/2019 DISCHARGE DATE: 09/12/19 0958 VISIT LOCKED DATE TIME: PHYSICIAN: NIKKI MACKEY RESOURCE: NIKKI MACKEY REASON FOR APPOINTMENT 1. NECK PAIN-IN OFFICE HISTORY OF PRESENT ILLNESS GENERAL: - 39-YEAR-OLD FEMALE IN FOR CHRONIC PAIN FOLLOW-UP. SHE RATES HER PAIN CURRENTLY AT A 7 OUT OF 10 AND DESCRIBES IT ACHING, STABBING, AND THROBBING. PATIENT HAS A TRIGGER POINT INJECTIONS IN THE PAST AND FOUND GOOD RELIEF WITH THEM. FALL RISK SCREENING: SCREENING :NO FALLS REPORTED IN THE LAST YEAR PAIN SCREENING: PATIENT HAS A COMPLAINT OF ACUTE OR CHRONIC PAIN :YES LOCATION OF PAIN:NECK INTENSITY OF PAIN (SCALE OF 1 TO 10):7 WHAT DOES YOUR PAIN FEEL LIKE:ACHING, STABBING, THROBBING DURATION:CONTINOUS, CONSTANT, ALL DAY, AWAKENS FROM SLEEP PAIN IS INCREASED BY:ACTIVITIES, PROLONGED STANDING PAIN IS DECREASED BY:USE OF PAIN MEDICATIONS PAIN HAS INTERFERED WITH THE FOLLOWING:MOOD, HOUSEWORK, SLEEP, RELATIONSHIP WITH OTHERS, ENJOYMENT OF LIFE PLAN/GOALS/TREATMENT/INTERVENTION/FOLLOW UP:SEE PLAN NURSING NOTE: -. PAIN CENTER INTAKE QUESTIONS: DO YOU HAVE A HISTORY OF MRSA? :NO DO YOU TAKE A BLOOD THINNERS? :NO DO YOU HAVE ANY BLEEDING DISORDERS? :NO ANY NEW NUMBNESS OR WEAKNESS IN YOUR LEGS OR ARMS? :NO ANY PACEMAKER,DEFIBRILLATOR, OR DORSAL COLUMN STIMULATOR? :NO DO YOU HAVE ANY RASHES OR OPEN SORES? :NO ARE YOU ALLERGIC TO IV DYE? :NO ARE YOU DIABETIC? :NO ANY NEW PROBLEMS WITH YOUR MEDICATIONS? :NO HAVE YOU RECEIVED A VACCINE IN THE PAST 30 DAYS? :NO DO YOU PLAN TO RECEIVE A VACCINE IN THE NEXT 21 DAYS? :NO DO YOU NEED ANY PRESCRIPTION? :NO DO YOU TAKE ANY IMMUNOSUPPRESSIVE MEDICATIONS? :NO IS THERE A CHANCE YOU COULD BE ? :NO ARE YOU BREAST FEEDING? :NO CURRENT MEDICATIONS TAKING TRAZODONE HCL 100 MG TABLET 2 TABLET AT BEDTIME ORALLY ONCE A DAY 2.5 TABS TAKING TOPAMAX 200 MG TABLET 1 TABLET ORALLY BEFORE BEDTIME TAKING GABAPENTIN 800 MG TABLET 1 TABLET ORALLY BID TAKING DULOXETINE HCL 60 MG CAPSULE DELAYED RELEASE PARTICLES 1 CAPSULE ORALLY BID TAKING LISINOPRIL-HYDROCHLOROTHIAZIDE 20-12.5 MG TABLET 2 TABLETS ORALLY ONCE A DAY TAKING MIRENA IUD TAKING HYDROXYZINE HCL 25 MG TABLET 1 TABLET NEEDED ORALLY EVERY 8 HRS TAKING ATORVASTATIN CALCIUM 10 MG TABLET 1 TABLET ORALLY ONCE A DAY TAKING VITAMIN D 57041 UNIT CAPSULE 1 CAPSULE ORALLY EVERY 2 WEEKS TAKING MAGNESIUM 250 MG TABLET 2 TABLETS WITH A MEAL ORALLY ONCE A DAY TAKING PRAZOSIN HCL 1 MG CAPSULE 1 CAPSULE AT BEDTIME ORALLY ONCE A DAY TAKING GEMFIBROZIL 600 MG TABLET 1 TABLET 30 MINUTES BEFORE MORNING AND EVENING MEALS ORALLY DAILY TAKING METHOCARBAMOL 750 MG TABLET 1 TABLET ORALLY BID TAKING MOBIC 15 MG TABLET 1 TABLET ORALLY WITH FOOD ONCE A DAY FOR PAIN MEDICATION LIST REVIEWED AND RECONCILED WITH THE PATIENT PAST MEDICAL HISTORY SYNCOPE HTN ASTHSMA WHOLE BODY ARTHRITIS PTSD NECK AND BACK PAIN CARPAL TUNNEL RIGHT CHRONIC PAIN DEPRESSION AND ANXIETY MIGRAINES FIBROMYALGIA BORDERLINE DIABETIC ALLERGIES AMOXICILLIN: RASH - ALLERGY SULFA (FOR ALLERGY USE ONLY): RASH - ALLERGY SURGICAL HISTORY GALL BLADDER REMOVAL 03/2008 BICEP REPAIR LEFT 02/28 CARPAL TUNNEL RIGHT WRIST 10/2017 FAMILY HISTORY FATHER: ALIVE 56 YRS, DIAGNOSED WITH HYPERTENSION MOTHER: ALIVE 57 YRS, OTHER SPECIFIED CONDITIONS INFLUENCING HEALTH STATUS 1 BROTHER(S) , 2 SISTER(S) - HEALTHY. 1 SON(S) , 1 DAUGHTER(S) . MOM-DEPRESSION, BACK PROBLEMS\\NDAUGHTER HAS CELIAC AND , ENVIRONMENTAL [id number]\\\\\\NSON HAS ASTHMA, ENVIRONMENTAL ALLERGIES 11\\\\. SOCIAL HISTORY GENERAL: TOBACCO USE ARE YOU A:CURRENT SMOKER ARE YOU INTERESTED IN QUITTING?NOT READY TO QUIT COUNSELED THE PATIENT ON SMOKING EFFECTS, EDUCATION [id number]/26/2020 HOW MANY CIGARETTES A DAY DO YOU SMOKE?5 OR LESS HOW SOON AFTER YOU WAKE UP DO YOU SMOKE YOUR FIRST CIGARETTE?AFTER 60 MIN HOW OFTEN DO YOU SMOKE CIGARETTES?SOME DAYS, BUT NOT EVERY DAY PATIENT COUNSELED ON THE DANGERS OF TOBACCO USE AND URGED TO QUIT:09/12/2019 SMOKING CESSATION INFORMATION GIVEN09/12/2019 LATEX QUESTIONNAIRE LATEX ALLERGY : HAVE YOU EVER DEVELOPED ANY TYPE OF REACTION AFTER HANDLING LATEX PRODUCTS SUCH RUBBER GLOVES, CONDOMS, DIAPHRAGMS, BALLOONS, SOCKS, OR UNDERWEAR?NO LATEX ALLERGY : HAVE YOU EVER DEVELOPED ANY TYPE OF REACTION DURING OR AFTER DENTAL APPOINTMENT, VAGINAL/RECTAL EXAMINATION, SURGICAL PROCEDURE, OR ANY OTHER EXPOSURE?NO LATEX RISK : HAVE YOU EVER HAD ANY DIFFICULTY BREATHING OR HIVES AFTER EATING OR HANDLING ANY FRUITS, OR VEGETABLES; SUCH KIWI, BANANAS, STONE FRUITS, OR CHESTNUTSNO LATEX RISK : DO YOU HAVE A PREVIOUS PERSONAL HISTORY OF MORE THAN NINE SURGERIES, SPINA BIFIDA, OR REPEATED CATHERIZATIONS? NO LATEX RISK : ARE YOU FREQUENTLY EXPOSED TO LATEX PRODUCTS IN YOUR OCCUPATION?NO DATE ASKED : 09/12/2019 ALCOHOL SCREENING DID YOU HAVE A DRINK CONTAINING ALCOHOL IN THE PAST YEAR?YES HOW OFTEN DID YOU HAVE SIX OR MORE DRINKS ON ONE OCCASION IN THE PAST YEAR?NEVER (0 POINTS) HOW MANY DRINKS DID YOU HAVE ON A TYPICAL DAY WHEN YOU WERE DRINKING IN THE PAST YEAR?1 OR 2 (0 POINTS) HOW OFTEN DID YOU HAVE A DRINK CONTAINING ALCOHOL IN THE PAST YEAR?MONTHLY OR LESS (1 POINT) POINTS1 INTERPRETATIONNEGATIVE RECREATIONAL DRUG USE DRUG USE?NO CAFFEINE CAFFEINE USE?YES OCCASIONALLY EVANGELICAL [id number] NONE LANGUAGE LANGUAGES SPOKEN:POLISH EDUCATION LEVEL OF EDUCATION:NOT FINISHED COLLEGE LEARNING BARRIERS / SPECIAL NEEDS BARRIERS TO LEARNING?NO HEARING IMPAIRED?NO VISION IMPAIRED?YES COGNITIVELY IMPAIRED?NO :CORRECTIVE LENSES READINESS TO LEARN?YES LEARNING PREFERENCES?YES :DEMONSTRATION/VERBAL INSTRUCTION LEARNING CAPABILITIES PRESENT?YES EMOTIONAL BARRIERS?YES COMMENTS DEPRESSION AND ANXIETY SPECIAL DEVICES?NO GRAPHICS EDIT TECHNICIAN NEEDED?NO DOMESTIC VIOLENCE DO YOU FEEL SAFE IN YOUR ENVIRONMENT?YES DIET: UNEMPLOYED. EXERCISE: NONE. MARITAL STATUS: .. OTHERS AT HOME: OTHER NON-RELATIVE, CHILDREN. PAIN CLINIC PFS, CLERGY, PUBLIC HEALTH REFERRALS PFS REFERRAL NEEDED?NO CLERGY REFERRAL NEEDED?NO PUBLIC HEALTH REFERRAL NEEDED?NO WAS THE PROVIDER NOTIFIED OF ANY PERTINENT INFO? N/A HAS THE PATIENT BEEN EDUCATED REGARDING HIS/HER PLAN OF CARE?YES HAS THE PATIENT BEEN EDUCATED REGARDING PAIN, THE RISK FOR PAIN, THE IMPORTANCE OF EFFECTIVE PAIN MANAGEMENT, AND THE PAIN ASSESSMENT PROCESS?YES HOUSING: RENTS APARTMENT. ADVANCE DIRECTIVE ADVANCE DIRECTIVE DISCUSSED WITH PATIENT:YES HCP ASAD ALEJANDRA [phone] MOM HOSPITALIZATION/MAJOR DIAGNOSTIC PROCEDURE SURGERY RELATED CHILDBIRTH COMPLICATIONS WHEN HERE TO HAVE CARPAL TUNNEL--DID NOT HAVE SURGERY 07/11/2017 [facility] 12/2017 REVIEW OF SYSTEMS CONSTITUTIONAL: ANY RECENT FEVER NO . CHILLS NO . WEIGHT CHANGE OF UNKNOWN REASONS NO . GASTROENTEROLOGY: NEW UNEXPLAINABLE CHANGES IN BOWEL CONTROL NO . CONSTIPATION NO . GENITOURINARY: ANY NEW CHANGE IN BLADDER CONTROL? NO . NEUROLOGY: NEW ONSET DIZZINESS OR NEUROLOGICAL CHANGES NOT MENTIONED NO . NEW NUMBNESS OR PAIN PATTERNS NOT MENTIONED AND PERTINENT TO TODAY'S VISIT NO . CARDIOLOGY: NEW CHEST PRESSURE NO . NEW CHEST PAIN NO . RESPIRATORY: UNEXPLAINABLE COUGH NO . NEW SHORTNESS OF BREATH NO . VITAL SIGNS WT 241.2 LBS, HT 63 IN, BMI 42.72 INDEX, BP 132/87 MM HG, HR 107 /MIN, RR 18 /MIN, TEMP 97.1 F, OXYGEN SAT % 98%, SAFE IN ENV? (Y/N) Y, NA INITIALS OR 09:32NANA ASUMADU RN NAVIGATOR. EXAMINATION GENERAL EXAMINATION: GENERALNO ACUTE DISTRESS, WELL NOURISHED AND HYDRATED. PSYCHAPPROPRIATE MOOD AND AFFECT . NECK:POINT TENDER RIGHT NECK AND SHOULDER, SURROUNDING SKIN SHOWS NO ERYTHEMA, ECCHYMOSIS, INCREASED WARMTH, AND/OR SKIN ERUPTIONS NOTED. BANDS OF RESTRICTIVE TISSUE NOTED OVER TRIGGER POINTS . HEART:NO MURMURS, REGULAR RATE AND RHYTHM. BACK:NO CVA TENDERNESS, UNREMARKABLE. ASSESSMENTS MYALGIA, OTHER SITE - M79.18 (PRIMARY) TREATMENT MYALGIA, OTHER SITE NOTES: TPI RIGHT NECK AND SHOULDER. CLINICAL NOTES: 39-YEAR-OLD FEMALE IN FOR CHRONIC PAIN FOLLOW-UP. GIVEN PRESENTING SYMPTOMS AND RESULTS OF PHYSICAL EXAMINATION RECOMMENDED TPI OF THE RIGHT NECK AND SHOULDER WITH POSTPROCEDURAL FOLLOW-UP. PATIENT HAS EXPRESSED UNDERSTANDING OF AND WAS IN AGREEMENT WITH TREATMENT PLAN. GIVEN TIME TO ASK QUESTIONS AND EXPRESS CONCERNS. OTHERS NOTES: TRIGGER POINT INJECTION MATERIAL WAS PRINTED. PROCEDURE CODES [id number] ESTABILISHED PATIENT [facility] CHARGE DISPOSITION & COMMUNICATION FOLLOW UP POSTPROCEDURE (REASON: TPI RIGHT NECK AND SHOULDER) ELECTRONICALLY SIGNED BY MARCELINA GALLARDO ON 09/15/2019 AT 08:35 AM EDT DISCLAIMER : THIS IS A VISIT SUMMARY EXTRACTED FROM THE [employer] CHART. IT IS NOT A COPY OF THE [employer] PROGRESS NOTE. JOSE R
== END ==
LOC: M PAIN 09:30
PROVIDERS: ATTEND Family Medicine
DX: M79.18 Myalgia, other site (principal); Z79.899 Other long term (current) drug therapy; F17.210 Nicotine dependence, cigarettes, uncomplicated; Z88.0 Allergy status to penicillin; Z88.2 Allergy status to sulfonamides

== ENCOUNTER → 2019-10-01 | Outpatient (CLI) | payer OTHER ==
[~2019-10-01] MED LIST changes: -LISI20TA19 PO; +LISI20TA35 PO
== END ==
LOC: M LABSMTC 12:58
PROVIDERS: ATTEND Anesthesiology
DX: Z11.59 Encounter for screening for other viral diseases (principal)
CPT/HCPCS: C9803; U0003

== ENCOUNTER → 2019-10-24 | Outpatient (POV) | payer OTHER, MEDICAID ==
[~2019-10-24] MED LIST changes: +BUPIVACAINE HCL 0.25% 10ML VIAL As Ordered ONE; +BUPIVACAINE HCL 0.25% 10ML VIAL ONE; +BUPIVACAINE HCL 0.25% 30ML VIAL As Ordered ONE; +BUPIVACAINE HCL 0.25% 30ML VIAL ONE; +diazePAM 5 MG TAB As Ordered ONE; +diazePAM 5 MG TAB ONE; +oxyCODONE 5MG TAB As Ordered ONE; +oxyCODONE 5MG TAB ONE
== END ==
LOC: M PAIN 10:00
PROVIDERS: ATTEND Anesthesiology
DX: M79.18 Myalgia, other site (principal)

== ENCOUNTER → 2019-11-03 | Outpatient (CLI) | payer OTHER, MEDICAID ==
[~2019-11-03] MED LIST changes: -BUPIVACAINE HCL 0.25% 10ML VIAL As Ordered ONE; -BUPIVACAINE HCL 0.25% 10ML VIAL ONE; -BUPIVACAINE HCL 0.25% 30ML VIAL As Ordered ONE; -BUPIVACAINE HCL 0.25% 30ML VIAL ONE; -diazePAM 5 MG TAB As Ordered ONE; -diazePAM 5 MG TAB ONE; -oxyCODONE 5MG TAB As Ordered ONE; -oxyCODONE 5MG TAB ONE
[2019-12-20 23:07] LABS: BASO % 0.2 % (0.0-1.0); EOS # 0.7 10^3/uL (0.0-0.5); EOS % 5.2 % (0.0-3.0); HEMATOCRIT 39.6 % (36.0-47.0); HEMOGLOBIN 13.2 g/dl (12.0-15.5); LYMPH # 4.5 10^3/uL (1.5-5.0); LYMPH % 36.2 % (24.0-44.0); MEAN CORPUSCULAR HEMOGLOBIN 30.7 pg (27.0-33.0); MEAN CORPUSCULAR HGB CONC 33.3 g/dl (32.0-36.5); MEAN CORPUSCULAR VOLUME 92.1 fl (80.0-96.0); MONO # 0.8 10^3/uL (0.0-0.8); MONO % 6.4 % (0.0-5.0); NEUTROPHILS # 6.4 10^3/uL (1.5-8.5); NEUTROPHILS % 51.3 % (36.0-66.0); PLATELET COUNT, AUTOMATED 327 10^3/uL (150-450); WHITE BLOOD COUNT 12.5 10^3/uL (4.0-10.0)
[2019-12-29 22:45] LABS: HEMOGLOBIN A1c 6.1 %
[2019-12-30 00:17] LABS: ALBUMIN 3.9 GM/DL (3.2-5.2); ALT/SGPT 34 U/L (12-78); BILIRUBIN,TOTAL 0.3 MG/DL (0.2-1.0); BLOOD UREA NITROGEN 23 MG/DL (7-18); CALCIUM LEVEL 9.2 MG/DL (8.5-10.1); CARBON DIOXIDE LEVEL 20 MEQ/L (21-32); CHLORIDE LEVEL 109 MEQ/L (98-107); CHOLESTEROL LEVEL 148 MG/DL (<200); CHOLESTEROL RISK RATIO 4.625 (<5); CREATININE FOR GFR 1.01 MG/DL (0.55-1.30); GLOMERULAR FILTRATION RATE > 60.0 (>58); GLUCOSE, FASTING 96 MG/DL (70-100); HDL CHOLESTEROL 32 MG/DL (>40); LDL CHOLESTEROL 87 MG/DL (<100); MAGNESIUM LEVEL 2.1 MG/DL (1.8-2.4); NON-HDL-C 116 MG/DL; POTASSIUM SERUM 3.6 MEQ/L (3.5-5.1); SODIUM LEVEL 139 MEQ/L (136-145); TOTAL 25(OH) VITAMIN D 38.2 NG/ML (30.0-100.0); TOTAL PROTEIN 7.5 GM/DL (6.4-8.2); TRIGLYCERIDES LEVEL 145 MG/DL (<150)
== END ==
LOC: M LAB 13:19
PROVIDERS: ATTEND Nurse Practitioner Adult Health
DX: E78.00 Pure hypercholesterolemia, unspecified (principal); D64.9 Anemia, unspecified; E83.42 Hypomagnesemia; Z79.899 Other long term (current) drug therapy; R73.03 Prediabetes

== ENCOUNTER → 2019-12-02 | Outpatient (CLI) | payer OTHER ==
[2019-12-03 15:08] LABS: ANTINUCLEAR ANTIBODIES DIRECT Negative (Negative)
== END ==
LOC: M LAB 10:18
PROVIDERS: ATTEND Physician Assistant Medical
DX: M25.50 Pain in unspecified joint (principal)

== ENCOUNTER → 2021-04-13 | Outpatient (CLI) | payer OTHER, MEDICAID ==
[~2021-04-13] MED LIST changes: +GABA-282 PO; +GABA-283 PO; -GABA-843 PO; -GABA-845 PO; +TIZA10TA; -TIZA4TAB4
[2021-04-13 08:39] LABS: BASO % 0.2 % (0.0-1.0); EOS # 0.6 10^3/uL (0.0-0.5); EOS % 4.6 % (0.0-3.0); HEMATOCRIT 40.7 % (36.0-47.0); HEMOGLOBIN 13.6 g/dl (12.0-15.5); LYMPH # 4.2 10^3/uL (1.5-5.0); LYMPH % 34.8 % (24.0-44.0); MEAN CORPUSCULAR HEMOGLOBIN 29.1 pg (27.0-33.0); MEAN CORPUSCULAR HGB CONC 33.4 g/dl (32.0-36.5); MONO # 0.8 10^3/uL (0.0-0.8); MONO % 6.3 % (2.0-8.0); NEUTROPHILS # 6.5 10^3/uL (1.5-8.5); NEUTROPHILS % 53.3 % (36.0-66.0); PLATELET COUNT, AUTOMATED 372 10^3/uL (150-450); RED BLOOD COUNT 4.68 10^6/uL (4.00-5.40); WHITE BLOOD COUNT 12.2 10^3/uL (4.0-10.0)
[2021-04-13 08:57] LABS: HEMOGLOBIN A1c 5.8 %
[2021-04-13 09:19] LABS: ALBUMIN 3.7 GM/DL (3.2-5.2); ALT/SGPT 62 U/L (12-78); BILIRUBIN,TOTAL 0.3 MG/DL (0.2-1.0); BLOOD UREA NITROGEN 15 MG/DL (7-18); CALCIUM LEVEL 9.6 MG/DL (8.5-10.1); CARBON DIOXIDE LEVEL 27 MEQ/L (21-32); CHLORIDE LEVEL 106 MEQ/L (98-107); CHOLESTEROL LEVEL 128 MG/DL (<200); CHOLESTEROL RISK RATIO 3.459 (<5); CREATININE FOR GFR 0.93 MG/DL (0.55-1.30); FERRITIN 101 NG/ML (8-252); GLOMERULAR FILTRATION RATE > 60.0 (>58); GLUCOSE, FASTING 129 MG/DL (70-100); HDL CHOLESTEROL 37 MG/DL (>40); IRON (FE) 102 UG/DL (50-170); LDL CHOLESTEROL 65 MG/DL (<100); NON-HDL-C 91 MG/DL; PERCENT SATURATION 27.6 % (13.2-45.0); POTASSIUM SERUM 3.8 MEQ/L (3.5-5.1); SODIUM LEVEL 140 MEQ/L (136-145); TOTAL IRON BINDING CAPACITY 369 UG/DL (250-450); TOTAL PROTEIN 7.4 GM/DL (6.4-8.2); TRIGLYCERIDES LEVEL 129 MG/DL (<150)
== END ==
LOC: M LAB 07:50
PROVIDERS: ATTEND Nurse Practitioner Family
DX: E78.00 Pure hypercholesterolemia, unspecified (principal); E66.01 Morbid (severe) obesity due to excess calories

== ENCOUNTER → 2022-04-23 | Outpatient (CLI) | payer MEDICAID, OTHER ==
[~2022-04-23] MED LIST changes: -ATOR1TAB19; +ATOR1TAB19 PO; +ERGO500029 PO; +FLUO40CA PO; +GABA800T4 PO; -HYDR-3363; +HYDR-3363 PO; +LOPI600T PO; +OMEP40CA5 PO; +PRAZ1CAP PO; +REXU1TAB4 PO; -TRAZ-257; +TRAZ-257 PO
== END ==
LOC: M LABSMTC 10:30
PROVIDERS: ATTEND Anesthesiology
DX: Z01.812 Encounter for preprocedural laboratory examination (principal); Z20.822 Contact with and (suspected) exposure to COVID-19

== ENCOUNTER 2022-04-26 10:58 | Day surgery (SDC) | payer OTHER ==
[~2022-04-26] VITALS: Ht 160 cm; Wt 106.1 kg
[~2022-04-26 10:58] MED LIST changes: +NS 1,000 ML IV ONE
[2022-04-26 13:43] VITALS: BP 94/50
[2022-04-26] MEDS ORDERED: propofoL 500 MG/50 ML VIAL As Ordered ONE (14:03)
[2022-04-26] MEDS ORDERED: LIDOCAINE 2% 100MG/5ML SDV (FOR ANES.) As Ordered ONE (14:03)
== END 2022-04-26 14:02 | disposition home or self-care (01) ==
LOC: M OPP 10:58
PROVIDERS: ATTEND Internal Medicine Gastroenterology
DX: Z12.11 Encounter for screening for malignant neoplasm of colon (principal); K64.0 First degree hemorrhoids; K22.89 Other specified disease of esophagus; K44.9 Diaphragmatic hernia without obstruction or gangrene; K22.70 Barrett's esophagus without dysplasia; E11.9 Type 2 diabetes mellitus without complications; I10 Essential (primary) hypertension; E78.00 Pure hypercholesterolemia, unspecified; J45.909 Unspecified asthma, uncomplicated; F41.9 Anxiety disorder, unspecified; F17.200 Nicotine dependence, unspecified, uncomplicated; Z79.02 Long term (current) use of antithrombotics/antiplatelets; Z79.891 Long term (current) use of opiate analgesic; Z79.899 Other long term (current) drug therapy; Z88.1 Allergy status to other antibiotic agents; Z88.2 Allergy status to sulfonamides

== ENCOUNTER → 2023-11-21 | Outpatient (CLI) | payer OTHER ==
[~2023-11-21] MED LIST changes: +FLUO-365 PO; -FLUO20CA22 PO; +GABA-1635 PO; -GABA-283 PO; +GABA-284 PO; -GABA800T4 PO; -NS 1,000 ML IV ONE
== END ==
LOC: M SLEEP 20:00
PROVIDERS: ATTEND Internal Medicine Critical Care Medicine
DX: G47.30 Sleep apnea, unspecified (principal)

== ENCOUNTER → 2024-01-30 | Outpatient (CLI) | payer OTHER ==
[~2024-01-30] MED LIST changes: +GABA-1172 PO; -GABA-282 PO
== END ==
LOC: M SLEEP 20:00
PROVIDERS: ATTEND Internal Medicine Critical Care Medicine
DX: G47.33 Obstructive sleep apnea (adult) (pediatric) (principal); G47.61 Periodic limb movement disorder

== ENCOUNTER 2025-03-16 11:19 | Emergency (ER) | payer OTHER ==
[~2025-03-16] VITALS: Ht 160 cm; Wt 105.9 kg
[~2025-03-16 11:19] MED LIST changes: +TOPI-14 PO; -TOPI200T7 PO
[2025-03-16] MEDS ORDERED: DULO1CAP4 (11:31)
[2025-03-16] MEDS ORDERED: FOLI1TAB11 (11:31)
[2025-03-16] MEDS: ONDANSETRON 4MG/2ML VIAL IV ONE (12:20)
[2025-03-16] MEDS: NS (Normal Saline) 0.9% 1,000 ML IV ONE (12:23)
[2025-03-16 12:34] LABS: BASO # 0.0 10^3/uL (0.0-0.2); BASO % 0.2 % (0.0-1.0); EOS # 0.4 10^3/uL (0.0-0.5); EOS % 3.2 % (0.0-3.0); LYMPH # 3.6 10^3/uL (1.5-5.0); LYMPH % 32.0 % (24.0-44.0); MONO # 0.7 10^3/uL (0.0-0.8); MONO % 6.5 % (2.0-8.0); NEUTROPHILS # 6.4 10^3/uL (1.5-8.5); NEUTROPHILS % 57.7 % (36.0-66.0); PLATELET COUNT, AUTOMATED 282 10^3/uL (150-450)
[2025-03-16 12:56] LABS: ALT/SGPT 61.0 U/L (7.0-40); AST/SGOT 63.0 U/L (<34); CALCIUM LEVEL 9.0 MG/DL (8.5-10.1); CARBON DIOXIDE LEVEL 24.0 MMOL/L (20-31); CHLORIDE LEVEL 109.0 MMOL/L (98-107); CREATININE FOR GFR 0.84 MG/DL (0.55-1.30); GLOMERULAR FILTRATION RATE 86.7 (>58); POTASSIUM SERUM 4.4 MMOL/L (3.5-5.1); SODIUM LEVEL 143.0 MMOL/L (136-145)
[2025-03-16 13:08] VITALS: BP 104/59; TEMP 98.1; O2SAT 100
[2025-03-16] MEDS ORDERED: ONDA-282 PO (13:11)
== END 2025-03-16 13:35 | disposition home or self-care (01) ==
LOC: M ED 11:19
DX: R11.2 Nausea with vomiting, unspecified (principal); I10 Essential (primary) hypertension; G43.909 Migraine, unspecified, not intractable, without status migrainosus; Z79.899 Other long term (current) drug therapy; Z88.0 Allergy status to penicillin; Z88.2 Allergy status to sulfonamides
CPT/HCPCS: 80048; 80076; 83690; 85025; 87486; 87581; 87633; 87798; 96361; 96374; 96375; 99284; J2405; J2765